=== PATIENT | female | born 1975 ===

== ENCOUNTER 2024-08-02 00:23 | Outpatient (CLI) | payer BC, SELFPAY ==
--- NOTE | 2024-08-02 | DI.MRI_ITS ---
Exam(s) MR BRAIN WO/W EXAM: MR BRAIN WO/W CLINICAL HISTORY: R31.9 NEUROLOGICAL SYMPTOMS, R/O MS LESION TECHNIQUE: Multiplanar multisequence MRI of the brain was performed. Both noninfused and contrast i nfused sequences were performed. IV Contrast injected was 20 cc Dotarem. COMPARISON: No exams were available for comparison FINDINGS: CEREBRAL PARENCHYMA: No evidence of intracranial hemorrhage, mass effect nor shift of midline structu re. There is mild cerebellar tonsillar ectopia noted. No obvious Cy rings evident in the partially visualized upper cervical spinal cord (C2 and above).. No extraaxial fluid collections. Ventricles are not enlarged nor shifted. There is no significant focal signal abnormality in the cerebellar hemispheres nor within the yanet, m idbrain, and thalami. There are few tiny nonspecific FLAIR bright foci of signal abnormality in the periventricular white m atter, not associated with hemorrhage, surrounding edema, enhancement, nor restricted diffusion. The se do not have the appearance of demyelinating plaques. There also no Hui fingers at the level th e corpus callosum. DWI: No areas of restricted diffusion to suggest acute ischemic event. SWI: No microhemorrhages evident. There are no ring enhancing lesions in the brain. There is no abnormal meningeal enhancement. PITUITARY GLAND: No mass nor parasellar abnormality. No obvious abnormality in the cavernous sinuses. FLOW VOIDS: The expected flow void are noted. No evidence of obvious aneurysm nor obvious vascular ma lformation. There is no evidence of venous sinus thrombosis. PARANASAL SINUSES: There is developmental asymmetry in the maxillary sinuses, left smaller than right . No significant mucosal disease within the paranasal sinuses. Small amount of fluid noted in the l ower most right mastoid air cells. ORBITS: No obvious abnormal findings. No obvious signal abnormality nor abnormal enhancement within the optic nerves to suggest optic neuri tis. IMPRESSION: 1. No evidence of significant demyelinating disease in the brain, as per request. 2. There are few tiny nonspecific foci of white matter signal abnormality which are not associated wi th hemorrhage, surrounding edema, enhancement, nor restricted diffusion and these do not have the giuseppe earance of demyelinating plaques. 3. There are no ring enhancing lesions in the brain and there is no abnormal meningeal enhancement. 4. 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 If clini yovanny indicated further MRI study of the cervical spinal cord can be performed to rule out syringomye ayla. There does not appear to be evidence of syringomyelia in the uppermost cervical spine included in the field of view of this head study (down to lower C2 level only). DATA REPOSITORY:
--- OUTSIDE RECORDS SUMMARY | 2024-08-02 00:26 | XMS_ITS | Encounter Summary ---
Author Organization [facility] Address [address] [place] [address] Care Team Providers Care General Farm Manager Name Role Phone Marivel Ricks MD Primary Care Provider Reason for Visit * Reason Onset Date Comments Orders (Non Pre-visit) 04/12/2024 Encounter Details Date Type Department Care Team (Late st Contact Info) Description 04/12/2024 Telephone [facility] Rheumatology & Immunology - [address] [id number] Rashi May MD [address] [place] [address], [address] [place] [address] Orders (Non Pre-visit) Social History Tobacco Use Types Packs/Day Years Used Date Smoking Tobacco: Former Cigarettes 1 10 1 990 - 1999 Passive Smoke Exposure: Past Smokeless Tobacco: Never Passive Exposure Comments:ch ildhood Alcohol Use Standard Drinks/Week Comments Yes 0 (1 standard drink = 0.6 oz pure alcohol) 1-3 glasses of wine every night. Interpersonal Safety Answer Date Record ed Physically Hurt Never 03/22/2020 Verbally Threaten Not on file 03/22/2020 Comments Unknown Sex and Gender Information Value Date Recorded Sex Assigned at Not on file Legal Sex Female 17:57 EST Gender Identity Not on file Sexual Orientation Not on file documented as of this encounter Functional Status * Because of a physical, mental, or emotional condition, does this person have difficulty doing errands alone such as visiting a doctor's office or shopping? Answer Date of Assessment Author No 07/21/2023 12:14 EST documented as of this encounter Mental Status * Because of a physical, mental, or emotional condition, does this person have serious difficulty concentrating, remembering, or making decisions? Answer Entry Date Author No 07/21/2023 12:14 EST documented in this encounter Miscellaneous Notes * Telephone Encounter - Mary Shi RN - 04/12/2024 1700 EDT Spoke with pt R/T MD response. Booked her for FUR on Monday at 1420. Verbalized understanding and agreeable with plan. * Telephone Encounter - Chantal Sultana RN - 04/12/2024 1004 EDT Spoke with patient at length. Patient feels she is in the midst of a flare and has a lot of different symptoms going on. Patient states having significant joint pain in bilateral hips and left ankle.Denies swelling, redness, or warmth to touch. Patient states her right knee is very tender, noticed it has been hyperextending, and causing her gait to be abnormal. Walks with more caution to avoid her falling. Advised this is likely to do hypermobility EDS. Patient seems convinced she has something more going on. Patient references a lot how her disgestive tract has been inflamed from her esophagus to her colon. Feels her whole body has a lot of inflammation. Has been doing research and feels she either has a form of RA, Lupus, or Crohn's. Would like to have labs ordered and sent to [facility]. * Telephone Encounter - Elda Pepper - 04/12/2024 0829 EDT Patient stated she is having active symptoms now. She is asking for an order for blood work to be sent to [facility]. Patient is asking for a call back once the orders have been sent. Thank You documented in this encounter Plan of Treatment Not on file documented as of this encounter Visit Diagnoses Not on filedocumented in this encounter Care Teams General Farm Manager Relationship Specialty Start Date End Date Marivel Ricks MD [address] [address] PCP - General 09/30/09 documented as of this encounter
--- OUTSIDE RECORDS SUMMARY | 2024-08-02 00:26 | XMS_ITS | Encounter Summary ---
Author Organization [facility] Address [address] [place] [address] Care Team Providers Care Cattle Sprayer Name Role Phone Marivel Ricks MD Primary Care Provider [phone] Encounter Details Date Type Department Care Team (Late st Contact Info) Description 01/15/2020 Lab Requisition [facility] Pathology & Laboratory Medicine - [address] [address] Outr Resulting Lab, Provider Social History Tobacco Use Types Packs/Day Years Used Date Smoking Tobacco: Never Assessed Comments Unknown Sex and Gender Information Value Date Recorded Sex Assigned at Not on file Legal Sex Female 17:57 EST Gender Identity Not on file Sexual Orientation Not on file documented as of this encounter Plan of Treatment Not on file documented as of this encounter Procedures Procedure Name Priority Date/Time Associated Diagnosis Comments ZZCOVID-19 TEST [facility] PCR Today 01/15/2020 13:49 EDT COVID-19 TESTING Routine 01/15/2020 13:4 9 EDT documented in this encounter Results * COVID-19 TEST [facility] PCR (01/15/2020 13:49 EDT) Swab ENTIRE NASOPHARYNX / Unknown 01/15/2020 13:49 EDT 01/15/2020 21:46 EDT us Provider Outr Resulting Lab MICROBIOLOGY - GENER AL ORDERABLES Final Result [facility] [address] [place] [address] * COVID-19 TESTING (01/15/2020 13:49 EDT) COVID-19 rt-PCR Result Negative Negative 01/16/2020 1:47 EDT [facility] Comment: This test has not been FDA cleared or approved. This test has been authorized by FDA under an EUA for use by authorized laboratories. This test has been authorized only for detection of nucleic acid from 2019-nCoV, not for any other viruses or pathogens. This test is only authorized for the duration of the declaration that circumstances exist justifying the authorization of emergency use of in vitro diagnostic tests for detection and/or diagnosis of 2019-nCoV under section 564(b)(1) of Act, 21 U.S.C ?? 360bbb-3(b) (1), unless the authorization is terminated or revoked sooner. Negative results do not preclude 2019-nCoV infection and should not be used as the sole basis for treatment or other patient management decisions. Negative results must be combined with clinical observations, patient history, and epidemiological information. Performed on the Lightningcast[employer] Fusion instrument Performing Lab [place] [facility] 01/16/2020 1:47 EDT [facility] Swab ENTIRE NASOPHARYNX / Unknown 01/15/2020 13:49 EDT 01/15/2020 21:46 EDT us Provider Outr Resulting Lab MICROBIOLOGY - GENER AL ORDERABLES Final Result [facility] [address] [place] [address] documented in this encounter Visit Diagnoses Not on filedocumented in this encounter Care Teams Cattle Sprayer Relationship Specialty Start Date End Date Marivel Ricks MD [address] [address] PCP - General 09/30/09 documented as of this encounter
--- OUTSIDE RECORDS SUMMARY | 2024-08-02 00:26 | XMS_ITS | Encounter Summary ---
Author Organization [facility] Address [address] [place] [address] Care Team Providers Care Construction Framer Name Role Phone Marivel Ricks MD Primary Care Provider Reason for Visit * Reason Onset Date Comments No Show 01/29/2024 Encounter Details Date Type Department Care Team (Late st Contact Info) Description 01/29/2024 Telephone [facility] Rheumatology & Immunology - [address] [address] Rashi May MD [address] [place] [address], [address] [place] [address] No Show Social History Tobacco Use Types Packs/Day Years Used Date Smoking Tobacco: Former Cigarettes 1 10 1 990 - 2000 Passive Smoke Exposure: Past Smokeless Tobacco: Never Passive Exposure Comments: ildhood Alcohol Use Standard Drinks/Week Comments Yes [...] encounter Miscellaneous Notes * Telephone Encounter - Arabella Mccray - 02/01/2024 1102 EDT 2nd attempt - left message on machine to call back and reschedule no showed appointment with Dr May on 01.26.2024. Please reschedule from the past tab. * Telephone Encounter - Arabella Mccray - 01/29/2024 1027 EDT 1st attempt - left message on machine to call back and reschedule no showed appointment with Dr May on 01.26.2024. Please reschedule from the past tab. documented in this encounter Plan of Treatment Not on file documented as of this encounter Visit Diagnoses Not on filedocumented in this encounter Care Teams Construction Framer Relationship Specialty Start Date End Date Marivel Ricks MD [address] [address] PCP - General 09/30/09 documented as of this encounter
--- OUTSIDE RECORDS SUMMARY | 2024-08-02 00:26 | XMS_ITS | Encounter Summary ---
Author Organization [facility] Address [address] [place] [address] Care Team Providers Care Meatcutter Name Role Phone Marivel Ricks MD Primary Care Provider [phone] Encounter Details Date Type Department Care Team (Late st Contact Info) Description 02/23/2023 Lab Requisition [facility] Pathology & Laboratory Medicine - [address] [address] Outr Resulting Lab, Provider Social History Tobacco Use Types Packs/Day Years Used Date Smoking Tobacco: Never Assessed Interpersonal Safety Answer Date Record ed Physically [...] Procedure Name Priority Date/Time Associated Diagnosis Comments CA 125 Routine 02/23/2023 15:51 EDT documented in this encounter Results * CA 125 (02/23/2023 15:51 EDT) CA 125 19 <30 U/mL 02/24/2023 10:34 EDT [facility] Comment: NOTE: Serum CA 125 concentration should not be interpreted as absolute evidence for the presence or absence of malignant disease. Assayed on Siemens [employer] XPT using chemiluminescent technology. ??Values obtained by using different assay methods cannot be used interchangeably. Blood VENOUS BLOOD / Unknown 02/23/2023 15:51 EDT 02/23/2023 21:27 EDT us Provider Outr Resulting Lab CHEMISTRY & BLOOD GA S ORDERABLES Final Result [facility] [address] [place] [address] documented in this encounter Visit Diagnoses Not on filedocumented in this encounter Care Teams Meatcutter Relationship Specialty Start Date End Date Marivel Ricks MD [address] [address] PCP - General 09/30/09 documented as of this encounter
--- OUTSIDE RECORDS SUMMARY | 2024-08-02 00:26 | XMS_ITS | Encounter Summary ---
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 Patient would benefit from exercises to help improve muscle tone, to support joints better. Reason for Visit * Reason Comments New Patient Visit Has had flare ups, p ain is a 10 during flare ups. During flare ups: eyes become sore and vision decreases, sores pop up on the inside of the tip of the nose. There is a sore on the left labia that was diagnosed as contact dermatitis but has never gone away. Becomes itchy when patient has a flare up. 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 [address] [address] Phone: tel: fax: Jeannine Le MD Phone: tel: fax: Referral ID Status Reason Start Date Expiration Date Visits Re quested Visits Authorized [id number] Denied 1 0 Encounter Details Date Type Department Care Team (Late st Contact Info) Description 07/21/2023 11:40 EST Office Visit [facility] Rheumatology & Immunology - [address] [id number] Rashi May MD [address] [place] [address], [address] [place] [address] Positive MARY (antinuclear antibody) (Primary Dx); Polyarthralgia; Myalgia; Chronic fatigue; Hypermobile Vangie-Danlos syndrome; Screening for viral disease Social History Tobacco Use Types Packs/Day Years Used Date Smoking Tobacco: Former Cigarettes 1 10 1 990 - 1999 Passive Smoke Exposure: Past Smokeless Tobacco: Never Tobacco Cessation:Counseling Given: Not Answered Passive Exposure Comments:childhood Alcohol Use Standard Drinks/Week Comments Yes 0 [...] on file documented as of this encounter Last Filed Vital Signs Vital Sign Reading Time Taken Comments Blood Pressure 139/69 07/21/2023 1211 EST Pulse 66 07/21/2023 1211 EST Temperature 36.4 ??C (97.6 ??F) 07/21/2023 1211 EST Respiratory Rate - - Oxygen Saturation - - Inhaled Oxygen Concentration - - Weight 104.3 kg (230 lb) 07/21/2023 1211 EST Height 177.5 cm (5' 9.88) 07/21/2023 1211 EST Body Mass Index 33.11 07/21/2023 1211 EST documented in this encounter Functional Status * Because of [...] 07/21/2023 12:14 EST documented in this encounter Patient Instructions * Patient Instructions* Rashi May MD - 07/21/2023 11:40 EST - get lab work today (2nd floor) - work on diet and regular exercise - consider cutting down on alcohol - consider seeing integrative medicine (Dr. Phoenix Tapia) here in [facility] to help with some of yoursymptoms. I do think some of your chronic symptoms are due to Hypermobility EDS (but not the episodic flares). - regular low impact aerobic exercises and low impact muscle strengthening exercises help in improving muscle tone and are very essential for management of symptoms. - referral to Physical therapy for Hypermobility EDS - suggest reading this book by Ramana Ramirez: Joint Hypermobility Handbook- A Guide for the Issues & Management of Vangie-Danlos Syndrome Hypermobility Type and the Hypermobility Syndrome - suggest to check EDS website [email or web address] [email or web address]/ Return to visit in 6 months (in person) documented in this encounter Progress Notes * Rashi May MD - 07/21/2023 1140 EST Division of Rheumatology and Clinical Immunology Date of Service: 07/21/23 Reason for Referral: multiple joint pains, myalgia, positive MARY Referring Provider: PAWAN Peguero History of Present Illness: Elyse Perry is a 47 y.o. female with PMHx as below. Reports having flare ups since 2008, occurs every ~4 months, lasts about 2 weeks each time. Does not recall having had any infections or having recieved any vaccines within 1-2 months prior to the onset of joint pains in 2008. When she had her first flare in [id number], she was seen by rheumatology here, later seen by communications operator who diagnosed her with Lyme, treated with chronic antibiotics (amoxicillin and metronidazole) for 10 months, which seemed to help initially but symptoms returned after stopping antibiotics. She saw another naturopathy, when she was advised some diet changes, took some tinctures for 3 years whichshe felt better. Worse flare was in 05/2022, lasted about 6 weeks. Does not recall having any infections or vaccinesprior to the worse flare in 05/2022. During every flare she notices joint pains and myalgia in hands (MCPs), L elbow, R>L shoulder, L>R hip (groin), L knee, BL ankles, R foot (#1 MTP and entire toe). Has generalized myalgia in UE,LE. Since 2008 she has had chronic fatigue, intermittently gets worse. Worse areas of pain: L hip, R shoulder, BL ankles, R #1 toe, BL wrists. Other symptoms she notices during flares are: SOB, Abdominal bloating, Constipation. Feels some weakening of ligaments in ankles (ankles rolls easily), sores in inside of very tip of her nose, BL eyepain, blurry vision, increase in floaters. In 2015 she developed an itchy raised patch of skin in her labia, seen by dermatology, diagnosed ascontact dermatitis, prescribed topical steroid which helps temporarily but she continues to have this patch of skin in her labia. In between flares she notices mild symptoms: mild joint pains, runny nose, raspy voice (feels like always has to clear her throat). Pain is not related to time of the day. Pain is worse: Rest Pain is better: with activity Swelling in joints: intermittent L knee (has had ACL and meniscus repair), BL ankles (towards the end of the day). Morning Stiffness: 15 mins Medications tried: Ibuprofen helps a little Reports chronic fatigue and some brain fog since 2008. Fatigue got worse in 05/2022. Reports usually getting good refreshing sleep, but occasionally has poor refreshing sleep - during episodes of stress. <> Denies nasal crusting, frequent sinusitis, oral ulcers (rarely), genital ulcers, headaches, cough, SOB, hemoptysis. <> Denies h/o skin rash, photosensitivity, oral ulcers, serositis (pleuritis, pericarditis), hemolytic anemia, leukopenia/lymphopenia, thrombocytopenia, kidney disease . Denies h/o arterial/venous thrombosis. Has dry eyes for the past 10 years, uses eye drops intermittently when it gets worse. <> Denies dry mouth. <> Denies abdominal pain (except due to IBS), fever, weight loss. <> Denies h/o Psoriasis, dactylitis, uveitis/eye inflammation. Denies family h/o Psoriasis, Ankylosing Spondylitis, Crohn's disease, Ulcerative colitis. Reports having had hyperflexible joints, especially in her Ankles, frequent clicking and popping of joints, joint subluxations (shoulders, knees), recurrent ankle sprains, easy bruising, atrophic scars, frequent orthostatic lightheadedness (more when younger, not so much now), IBS, constipation. <> Denies h/o joint dislocations, soft skin, pelvic floor/rectal/uterine prolapse, stretch leslie, hyperelastic skin, cigarette paper scars, severe hypotonia at , fragile skin (splits easily after minor trauma), pneumothorax, bowel rupture, rupture of internal organs, vascular aneurysms/di ssection. Denies family h/o pneumothorax, bowel rupture, rupture of internal organs, vascular aneurysms/dissection. 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 There are no problems to display for this patient. No current outpatient medications on file. ALLERGIES: Patient has no known allergies. Past Medical History: Diagnosis Date IBS (irritable bowel syndrome) Lyme disease 2009 Past Surgical History: Procedure Laterality Date ANTERIOR CRUCIATE LIGAMENT REPAIR Left 1992 KNEE CARTILAGE SURGERY Left 1992 LASIK Bilateral Family History Problem Relation Age of Onset Diverticulitis Mother Social History Socioeconomic History Marital status: Spouse name: Not on file Number of children: Not on file Years of education: Not on file Highest education level: Not on file Occupational History Not on file Tobacco Use Smoking status: Former Current packs/day: 0.00 Average packs/day: 1 pack/day for 10.0 years (10.0 ttl pk-yrs) Types: Cigarettes Start date: 1989 Quit date: 1999 Years since quittin.9 Passive exposure: Past (childhood) Smokeless tobacco: Never Vaping Use Vaping Use: Never used Substance and Sexual Activity Alcohol use: Yes Comment: 1-3 glasses of wine every night. Drug use: Never Sexual activity: Not on file Other Topics Concern Not on file Social History Narrative Not on file Social Determinants of Health Financial Resource Strain: Not on file Food Insecurity: Not on file Transportation Needs: Not on file Physical Activity: Not on file Stress: Not on file Social Connections: Not on file Housing Stability: Not on file PHYSICAL EXAMINATION: BP 139/69 (BP Cuff Location: Right arm, BP Patient Position: Sitting, BP Cuff Sizes: Adult, regular) Pulse 66 Temp 36.4 ??C (97.6 ??F) Ht 177.5 cm (69.88) Wt (!) 104.3 kg (230 lb) BMI 33.11 kg/m?? Constitutional: Not in distress Head: Normocephalic Eyes: No erythema. Conjunctiva moist Mouth: No oral ulcers. Mucosa moist. Lymph nodes: No cervical lymphadenopathy Cardiac: Normal rate, rhythm. Normal S1S2, no murmurs Pulmonary: Normal breath sounds on auscultation. Neurological: AOx3. Extremity: No edema Skin: no rashes. MSK Exam: Muscle strength: power 5/5 in b/l UE and LE in proximal and distal muscle groups Beighton Score: 6/9 (BL elbow, L #5 MCP. Until 3-5 years ago could touch palms to floor without bending knees, could flex thumbs to forearm) Piezogenic papules: Present Neck: Intact ROM Back: Intact ROM, B/L SI Joint Non-tender Shoulder: Intact ROM. No tenderness, swelling in b/l shoulders. Elbows, Wrists: No joint swelling, tenderness, erythema. Intact ROM Hands: No joint swelling, tenderness, erythema. Able to make tight fists BL Hips: Intact ROM, no tenderness with ROM Knees, Ankles, Feet: No joint swelling, tenderness, erythema. Intact ROM No nail pitting or onycholysis No Dactylitis, Enthesitis. Review of Outside Records/Tests: LABS Results for orders placed or performed in visit on 07/21/23 ANTI DNA (DOUBLE STRANDED) Result Value Ref Range Anti-DNA (Double Stranded) <12.3 <30.0 IU/mL SM (CASTRO) ANTIBODY Result Value Ref Range SM (Castro) Antibody 3.1 <20.0 Units PATTERN MARKING SUPERVISOR ANTIBODIES BY ANDREA Result Value Ref Range PATTERN MARKING SUPERVISOR Antibody 2.4 <20.0 Units SSA ANTIBODIES BY ANDREA Result Value Ref Range SSA Antibody 1.6 <20.0 Units SSB ANTIBODIES BY ANDREA Result Value Ref Range SSB Antibody 2.4 <20.0 Units CCP ANTIBODIES Result Value Ref Range CCP Antibodies <2.5 <5.0 U/mL HEPATITIS B CORE ANTIBODY (TOTAL) Result Value Ref Range Hepatitis B Core Ab, Total Negative Negative HEPATITIS B SURFACE ANTIGEN Result Value Ref Range Hep B Surface Ag Negative Negative HEPATITIS C AB W REFLEX TO HCV RNA BY PCR Result Value Ref Range Hep C Antibody Negative Negative C REACTIVE PROTEIN Result Value Ref Range C-Reactive Protein 7.2 <10.0 mg/L SED RATE Result Value Ref Range Sed Rate 6 0 - 20 mm/hr COMPLETE BLOOD COUNT AND DIFFERENTIAL Result Value Ref Range WBC 6.21 4.00 - 12.40 K/cmm RBC 4.36 3.86 - 5.04 M/cmm Hemoglobin 13.6 11.6 - 15.2 g/dL HCT 39.6 34.9 - 44.4 % MCV 91 81 - 98 fL MCH 31.2 26.7 - 33.3 pg MCHC 34.3 32.1 - 35.9 g/dL RDW-CV 12.6 <14.7 % RDW-SD 41.2 <50.4 fl PLT 197 141 - 377 K/cmm MPV 10.2 9.5 - 12.7 fL % Neutrophils 53.7 % % Lymphocytes 33.3 % % Monocytes 10.3 % % Eosinophils 1.8 % % Basophils 0.6 % % Immature Grans 0.3 % Absolute Neutrophils 3.33 2.20 - 8.85 K/cmm Absolute Lymphocytes 2.07 1.09 - 3.30 K/cmm Absolute Monocytes 0.64 0.10 - 0.80 K/cmm Absolute Eosinophils 0.11 0.03 - 0.61 K/cmm ABS Basophils 0.04 0.01 - 0.11 K/cmm Absolute Immature Grans 0.02 0.00 - 0.06 K/cmm Type of Differential: Auto COMPREHENSIVE METABOLIC PANEL (CMP) Result Value Ref Range Sodium 141 136 - 145 mmol/L Potassium 4.1 3.5 - 5.0 mmol/L Chloride 103 96 - 110 mmol/L CO2 Total 27 22 - 32 mmol/L Glucose 92 70 - 99 mg/dl BUN 19 10 - 26 mg/dL Creatinine 0.87 0.52 - 1.04 mg/dL eGFR 82 >60 mL/min/1.73m2 Total Protein 7.5 6.3 - 8.2 g/dL Albumin 4.3 3.4 - 4.9 g/dL Alkaline Phosphatase 37 (L) 38 - 126 U/L AST 34 15 - 46 U/L ALT 25 <35 U/L Bilirubin, Total <0.5 <1.4 mg/dL Calcium 9.3 8.5 - 10.5 mg/dL Albumin/Globulin Ratio 1.3 1.0 - 2.5 g/dL Anion Gap 11 5 - 14 mmol/L TISSUE TRANSGLUTAMINASE AB, IGA Result Value Ref Range Tissue Transglutaminase Antibody IGA <1.2 <4.0 U/mL No visits with results within 3 Month(s) from this visit. Latest known visit with results is: Lab Requisition on 02/23/2023 Component Date Value CA 125 02/23/2023 19 IMAGING: Plan Diagnosis / Assessment: ICD-10-CM ICD-9-CM 1. Positive MARY (antinuclear antibody) R76.8 795.79 2. Polyarthralgia M25.50 719.49 3. Myalgia M79.10 729.1 4. Chronic fatigue R53.82 780.79 5. Hypermobile Vangie-Danlos syndrome Q79.62 756.83 6. Screening for viral disease Z11.59 V73.99 1) Recurrent Episodic severe Polyarthralgia, Myalgia: - Work up Labs: - ESR: Normal (6), CRP: Normal (1.8mg/L) 05/2022; Repeat ESR: Normal (6), CRP: 7.2mg/L) 07/2023 - RF: (-) 05/2022 , CCP: (-) 07/2023 - MARY: (1:80, Cytoplasmic, Fine Speckled) 05/2022 - dsDNA, SM, PATTERN MARKING SUPERVISOR, SSA, SSB: (-) 07/2023 - TTG: (-) 07/2023 - Lyme: (-) 05/2022 - TSH: Normal 05/2022 - CBC diff, CMP: Normal 05/2022 - Hep B & C screen: Negative 07/2023 - recurrent episodic flares of multiple joint pain and generalized myalgia since 2008, chronic fatigue since 2008. Flares occur every ~4 months, lasts about 2 weeks each time. Flare in 05/2022 was worse, lasted 6 weeks. Associated symptoms during flares: SOB, Abdominal bloating, Constipation, feeling of weakening of ligaments in ankles (ankles rolls easily), sores in inside of very tip of her nose, BL eye pain, blurry vision, increase in floaters. - unclear if the bad flare in 05/2022 was due to post-Viral or post -COVID syndrome (though she didn't haven't any clear symptoms suggestive of COVID injection, but viral infections can sometimes be asymptomatic). - unclear if the episodic flares are due to any inflammatory cause - history is partly non-inflammatory and partly inflammatory ; No Synovitis noted on physical exam (07/2023) - the cause of these symptoms is unclear. It would be better to evaluate patient during a flare. - Monitoring Labs: - 07/2023: - ESR: Normal (6), CRP: 7.2mg/L) - CBC diff, CMP: Normal 2) Chronic polyarthralgia: Likely due to Hypermobility EDS: - in addition to the episodic severe joint pains, patient also has a milder chronic joint pains in the back ground which seem to be separate from the episodic flares. - h/o hyperflexible joints, especially in her Ankles, frequent clicking and popping of joints, joint subluxations (shoulders, knees), recurrent ankle sprains, easy bruising, atrophic scars, frequent orthostatic lightheadedness (more when younger, not so much now), IBS, constipation. On exam has piezogenic papules, Beighton Score of 6/9. Given these history and exam features, patient likely has Hypermobility EDS - does not have history suggestive of Classical or Vascular EDS. - this is a disorder due to laxity of connective tissues. - patients can get frequent aches and pains due to Joint Hypermobility; they are also predisposed to get frequent joint injuries, they can develop osteoarthritis earlier in life 3) Positive MARY (1:80, Cytoplasmic, Fine Speckled): - 05/2022 - patient does not have features suggestive of Lupus or Connective Tissue Diseases - MARY is a non-specific test; Though it is positive in SLE and other connective tissue disease, it can also be seen positive in people without any evidence of autoimmune disease. - will check MARY subset antibodies (dsDNA, SM, PATTERN MARKING SUPERVISOR, SSA, SSB) -> all reported negative 07/2023 Recommendations/Evaluation: Patient Instructions - get lab work today (2nd floor) - work on diet and regular exercise - consider cutting down on alcohol - consider seeing integrative medicine (Dr. Phoenix Tapia) here in [facility] to help with some of yoursymptoms. I do think some of your chronic symptoms are due to Hypermobility EDS (but not the episodic flares). - regular low impact aerobic exercises and low impact muscle strengthening exercises help in improving muscle tone and are very essential for management of symptoms. - referral to Physical therapy for Hypermobility EDS - suggest reading this book by Ramana Ramirez: Joint Hypermobility Handbook- A Guide for the Issues & Management of Vangie-Danlos Syndrome Hypermobility Type and the Hypermobility Syndrome - suggest to check EDS website [email or web address]/ Return to visit in 6 months (in person) I spent a total of 70 minutes on the date of this encounter meeting with the patient and reviewing documentation/coordinating care as described in the above note. No procedures were performed at the time of the visit. Rashi May MD documented in this encounter Plan of Treatment Scheduled Referrals Name Type Priority Associated Diagnoses Order Schedule AMB CONS/FOLLOW UP PHYSICAL THERAPY - OUTSIDE OF NETWORK Outpatient Referral Routine/Next Available Hypermobile Vangie-Danlos Syndrome Expected: 08/21/2023 (Approximate), Expires: 07/21/2024 documented as of this encounter Results * TISSUE TRANSGLUTAMINASE AB, IGA (07/21/2023 16:18 EST) Tissue Transglutaminase Antibody IGA <1.2 <4.0 U/mL 07/24/2023 8:04 [facility] Comment: A negative result may be due to IgA deficiency and does not rule out celiac disease. ? Negative: ??<4.0 U/mL ? Weak Positive: ??4.0 - 10.0 U/mL ? Positive: ??>10.0 U/mL Results were obtained with the GeoVarioA Lite R h-tTG IgA ANDREA assay on the [employer] DSX. Blood VENOUS BLOOD / Unknown Venipuncture / Unknown 07/21/2023 16:18 EST 07/21/2023 16:41 EST us Rashi May MD IMMUNOLOGY AND SEROLOGY ORDERAB LES Final Result [facility] [address] [place] [address] * (ABNORMAL) COMPREHENSIVE METABOLIC PANEL (CMP) (07/21/2023 16:18 EST) Sodium 141 136 - 145 mmol/L 07/21/2023 17:09 [facility] Potassium 4.1 3.5 - 5.0 mmol/L 07/21/2023 17:09 [facility] Chloride 103 96 - 110 mmol/L 07/21/2023 17:09 [facility] CO2 Total 27 22 - 32 mmol/L 07/21/2023 17:09 [facility] Glucose 92 70 - 99 mg/dl 07/21/2023 17:09 [facility] BUN 19 10 - 26 mg/dL 07/21/2023 17:09 [facility] Creatinine 0.87 0.52 - 1.04 mg/dL 07/21/2023 17:09 [facility] eGFR 82 >60 mL/min/1.7 3m2 07/21/2023 17:09 [facility] Total Protein 7.5 6.3 - 8.2 g/dL 07/21/2023 17:09 [facility] Albumin 4.3 3.4 - 4.9 g/dL 07/21/2023 17:09 [facility] Alkaline Phosphatase 37(L) 38 - 126 U/L 07/21/2023 17:09 [facility] AST 34 15 - 46 U/L 07/21/2023 17:09 [facility] ALT 25 <35 U/L 07/21/2023 17:09 [facility] Bilirubin, Total <0.5 <1.4 mg/dL 07/21/20 17:09 [facility] Calcium 9.3 8.5 - 10.5 mg/dL 07/21/2023 17:09 [facility] Albumin/Globulin Ratio 1.3 1.0 - 2.5 g/dL 07/21/2023 17:09 [facility] Anion Gap 11 5 - 14 mmol/L 07/21/2023 17:09 [facility] Blood VENOUS BLOOD / Unknown Venipuncture / Unknown 07/21/2023 16:18 EST 07/21/2023 16:41 EST Rashi May MD CHEMISTRY & BLOOD GAS ORDERABLE S Final Result Performing Organization Address City/State/[facility] Co de Phone Number [facility] [address] [place] [address] * COMPLETE BLOOD COUNT AND DIFFERENTIAL (07/21/2023 16:18 EST) WBC 6.21 4.00 - 12.40 K/cmm 07/21/2023 16:48 [facility] RBC 4.36 3.86 - 5.04 M/cmm 07/21/2023 16:48 [facility] Hemoglobin 13.6 11.6 - 15.2 g/dL 07/21/2023 16:48 [facility] HCT 39.6 34.9 - 44.4 % 07/21/2023 16:48 [facility] MCV 91 81 - 98 fL 07/21/2023 16:48 [facility] MCH 31.2 26.7 - 33.3 pg 07/21/2023 16:48 [facility] MCHC 34.3 32.1 - 35.9 g/dL 07/21/2023 16:48 [facility] RDW-CV 12.6 <14.7 % 07/21/2023 16:48 [facility] RDW-SD 41.2 <50.4 fl 07/21/2023 16:48 [facility] PLT 197 141 - 377 K/cmm 07/21/2023 16:48 [facility] MPV 10.2 9.5 - 12.7 fL 07/21/2023 16:48 [facility] % Neutrophils 53.7 % 07/21/2023 16:48 [facility] % Lymphocytes 33.3 % 07/21/2023 16:48 [facility] % Monocytes 10.3 % 07/21/2023 16:48 [facility] % Eosinophils 1.8 % 07/21/2023 16:48 [facility] % Basophils 0.6 % 07/21/2023 16:48 [facility] % Immature Grans 0.3 % 07/21/20 16:48 [facility] Absolute Neutrophils 3.33 2.20 - 8.85 K/cmm 07/21/2023 16:48 [facility] Absolute Lymphocytes 2.07 1.09 - 3.30 K/cmm 07/21/2023 16:48 [facility] Absolute Monocytes 0.64 0.10 - 0.80 K/cmm 07/21/2023 16:48 [facility] Absolute Eosinophils 0.11 0.03 - 0.61 K/cmm 07/21/2023 16:48 [facility] ABS Basophils 0.04 0.01 - 0.11 K/cmm 07/21/2023 16:48 [facility] Absolute Immature Grans 0.02 0.00 - 0.06 K/cmm 07/21/2023 16:48 [facility] Type of Differential: Auto 07/21/2023 16:48 EST [facility] Blood VENOUS BLOOD / Unknown Venipuncture / Unknown 07/21/2023 16:18 EST 07/21/2023 16:41 EST us Rashi May MD PACKAGES & DNA PROBE ORDERABLES Final Result Performing Organization Address [facility]/ZIP Co de Phone Number [facility] [address] [place] [address] * SED RATE (07/21/2023 16:18 EST) Pathologist [facility] Sed Rate 6 0 - 20 mm/hr 07/21/2023 17:00 EST [facility] Blood VENOUS BLOOD / Unknown Venipuncture / Unknown 07/21/2023 16:18 EST 07/21/2023 16:41 EST us Rashi May MD HEMATOLOGY & PF4 ORDERABLES Fin al Result Performing Organization Address City/[facility] Co de Phone Number [facility] [address] [place] [address] * C REACTIVE PROTEIN (07/21/2023 16:18 EST) [facility] C-Reactive Protein 7.2 <10.0 mg/L 07/21/2023 17:12 EST [facility] Blood VENOUS BLOOD / Unknown Venipuncture / Unknown 07/21/2023 16:18 EST 07/21/2023 16:41 EST us Rashi May MD CHEMISTRY & BLOOD GAS ORDERABLE S Final Result Performing Organization Address [facility] Co de Phone Number [facility] [address] [place] [address] * HEPATITIS C AB W REFLEX TO HCV RNA BY PCR (07/21/2023 16:18 EST) Pathologist [facility] Hep C Antibody Negative Negative 07/24/2023 17:37 EST [facility] Blood VENOUS BLOOD / Unknown Venipuncture / Unknown 07/21/2023 16:18 EST 07/21/2023 16:40 EST Result Shraddha May MD CHEMISTRY & BLOOD GAS ORDERABLE S Final Result Performing Organization Address City/[facility] Co de Phone Number [facility] [address] [place] [address] * HEPATITIS B SURFACE ANTIGEN (07/21/2023 16:18 EST) Hep B Surface Ag Negative Negative 07/24/2023 13:03 EST [facility] Blood VENOUS BLOOD / Unknown Venipuncture / Unknown 07/21/2023 16:18 EST 07/21/2023 16:40 EST Result Shraddha May MD CHEMISTRY & BLOOD GAS ORDERABLE S Final Result Performing Organization Address [facility] de Phone Number [facility] [address] [place] [address] * HEPATITIS B CORE ANTIBODY (TOTAL) (07/21/2023 16:18 EST) Hepatitis B Core Ab, Total Negative Negative 07/24/2023 13:44 EST [facility] Blood VENOUS BLOOD / Unknown Venipuncture / Unknown 07/21/2023 16:18 EST 07/21/2023 16:40 EST Result Shraddha May MD CHEMISTRY & BLOOD GAS ORDERABLE S Final Result Performing Organization Address City/[facility] de Phone Number [facility] [address] [place] [address] * CCP ANTIBODIES (07/21/2023 16:18 EST) CCP Antibodies <2.5 <5.0 U/mL 07/24/2023 8:47 EST [facility] Blood VENOUS BLOOD / Unknown Venipuncture / Unknown 07/21/2023 16:18 EST 07/21/2023 16:40 EST Result Shraddha May MD IMMUNOLOGY AND SEROLOGY ORDERAB LES Final Result Performing Organization Address [facility] Co de Phone Number [facility] [address] [place] [address] * SSB ANTIBODIES BY ANDREA (07/21/2023 16:18 EST) SSB Antibody 2.4 <20.0 Units 07/25/2023 10:01 EST [facility] Comment: ? Negative: <20.0 Units ? Weak Positive: 20.0 - 39.9 Units ? Moderate Positive: 40.0 - 80.0 Units ? Strong Positive: >80.0 Units Results were obtained with the [employer] QUANTA Lite SS-B ANDREA. ??SS-B values obtained with different manufacturers' assay methods may not be used interchangeably. ??The magnitude of the reported IgG levels cannot be correlated to an endpoint titer. Blood VENOUS BLOOD / Unknown Venipuncture / Unknown 07/21/2023 16:18 EST 07/21/2023 16:40 EST us Rashi May MD IMMUNOLOGY AND SEROLOGY ORDERAB LES Final Result Performing Organization Address [facility] Co de Phone Number [facility] [address] [place] [address] * SSA ANTIBODIES BY ANDREA (07/21/2023 16:18 EST) SSA Antibody 1.6 <20.0 Units 07/25/2023 10:01 EST [facility] Comment: ? Negative: <20.0 Units ? Weak Positive: 20.0 - 39.9 Units ? Moderate Positive: 40.0 - 80.0 Units ? Strong Positive: >80.0 Units Results were obtained with the [employer] QUANTA Lite SS-A ANDREA. ??SS-A values obtained with different manufacturers' assay methods may not be used interchangeably. ??The magnitude of the reported IgG levels cannot be correlated to an endpoint titer. Blood VENOUS BLOOD / Unknown Venipuncture / Unknown 07/21/2023 16:18 EST 07/21/2023 16:40 EST Rashi May MD IMMUNOLOGY AND SEROLOGY ORDERAB LES Final Result Performing Organization Address [facility] de Phone Number [facility] [address] [place] [address] * PATTERN MARKING SUPERVISOR ANTIBODIES BY ANDREA (07/21/2023 16:18 EST) PATTERN MARKING SUPERVISOR Antibody 2.4 <20.0 Units 07/25/2023 10:01 EST [facility] Comment: ? Negative: <20.0 Units ? Weak Positive: 20.0 - 39.9 Units ? Moderate Positive: 40.0 - 80.0 Units ? Strong Positive: >80.0 Units Results were obtained with the [employer] Quanta Lite PATTERN MARKING SUPERVISOR ANDREA. PATTERN MARKING SUPERVISOR values obtained with different family support specialist's assay methods may not be used interchangeaby. ??The magnitude of the reported IgG levels cannot be be correlated to an endpoint titer. A positive result in the Quanta Lite PATTERN MARKING SUPERVISOR ANDREA indicates the presence of antibodies reactive with the PATTERN MARKING SUPERVISOR/Sm complex but cannot distinguish between anti-Sm and anti-PATTERN MARKING SUPERVISOR activity. Blood VENOUS BLOOD / Unknown Venipuncture / Unknown 07/21/2023 16:18 EST 07/21/2023 16:41 EST Rashi May MD IMMUNOLOGY AND SEROLOGY ORDERAB LES Final Result Performing Organization Address [facility] de Phone Number [facility] [address] [place] [address] * SM (CASTRO) ANTIBODY (07/21/2023 16:18 EST) SM (Castro) Antibody 3.1 <20.0 Units 07/25/2023 10:01 EST [facility] Comment: ? Negative: <20.0 Units ? Weak Positive: 20.0 - 39.9 Units ? Moderate Positive: 40.0 - 80.0 Units ? Strong Positive: >80.0 Units Results were obtained with the [employer] QUANTA Lite Sm ANDREA. ??Sm values obtained with different manufacturers' assay methods may not be used interchangeably. ??The magnitude of the reported IgG levels cannot be correlated to an endpoint titer. Blood VENOUS BLOOD / Unknown Venipuncture / Unknown 07/21/2023 16:18 EST 07/21/2023 16:40 EST us Rashi May MD IMMUNOLOGY AND SEROLOGY ORDERAB LES Final Result Performing Organization Address [facility] de Phone Number [facility] [address] [place] [id number] * ANTI DNA (DOUBLE STRANDED) (07/21/2023 16:18 EST) Anti-DNA (Double Stranded) <12.3 <30.0 IU/mL 07/25/2023 9:39 [facility] Comment: ? Negative: ??<30.0 IU/mL ? Borderline Positive: ??30.0 - 75.0 IU/mL ? Positive: ??>75.0 IU/mL Results were obtained with the [employer] QUANTA Lite dsDNA SC ANDREA assay on the [employer]price[employer]comX. Blood VENOUS BLOOD / Unknown Venipuncture / Unknown 07/21/2023 16:18 EST 07/21/2023 16:40 EST us Rashi May MD IMMUNOLOGY AND SEROLOGY ORDERAB LES Final Result Performing Organization Address [facility] de Phone Number [facility] [address] [place] [address] documented in this encounter Visit Diagnoses Diagnosis Positive MARY (antinuclear antibody)- Primary Other and unspecified nonspecific immunological findings Polyarthralgia Pain in joint, multiple sites Myalgia Mylagia and myositis, unspecified Chronic fatigue Other malaise and fatigue Hypermobile Vangie-Danlos syndrome Screening for viral disease Special screening examination for unspecified viral disease documented in this encounter Care Teams Bunch Maker Hand Relationship Specialty Start Date End Date Marivel Ricks MD [address] [address] PCP - General 09/30/09 documented as of this encounter
--- OUTSIDE RECORDS SUMMARY | 2024-08-02 00:26 | XMS_ITS | Referral Summary ---
Author Organization [facility] Address [address] [place] [address] Care Team Providers Care Assistant Fitness Manager Name Role Phone Marivel Ricks MD Primary Care Provider [phone] Encounters Date Type Department Care Team Description 06/12/2024 Telephone [facility] Rheumatology & Immunology [address] [address] Rashi May MD Appointment Related 06/11/2024 Telephone [facility] Rheumatology & Immunology [address] [address] Rashi May MD Labs Only 06/05/2024 [facility] Rheumatology & Immunology [address] [address] Rashi May MD Follow-up 05/21/2024 Lab Requisition [facility] Pathology & Laboratory Medicine [address] [address] Kathrin Rodriguez DO Unspecified menopausal and perimenopausal disorder from Last 3 Months Allergies No known active allergies Medications progesterone (PROMETRIUM) 100 mg capsule Take 1 Capsule by mouth at bedtime. Active Vitamin D3-Menaquinone 7 25 mcg (1,000 unit)-90 mcg tablet,disintegra ting Take 1 Capsule by mouth daily. Active MAGNESIUM CITRATE ORAL Take 180 mg by mouth daily. 2 capsules daily Active betamethasone dipropionate 0.05 % lotion Apply topically as needed for Rash. Active rhubarb root extract (ESTROVERA ORAL) Take by mouth daily. Active CAPSICUM, CAYENNE, ORAL Take by mouth daily. Active TURMERIC ORAL daily. Active SALLY, ZINGIBER OFFICINALIS, ORAL daily. Ac tive creatine, bulk, 100 % powder daily. Active Active Problems Patient Care Coordination No te Formatting of this note migh t be different from the original. Patient has given permission for [facility] to verbally discuss the following information with Bari Perry (Spouse) who has the following relationship to the patient: Spouse/Partner: Scheduling/Appt/Billing/Payment Information (does not include clinical information unless specifically indicated with separate option) Medical Information including symptoms, diagnosis, medications, test results and treatment plan (does not include Mental Health unless specifically indicated with separate option) Mental Health (Behavioral,Psychiatric,Chemical Dependency) health information, including my symptoms, diagnosis, medications and treatment plan Permission remains in effect until the patient elects to revoke it. No additional problems on file Social History Tobacco Use Types Packs/Day Years Used Date Smoking Tobacco: Former Cigarettes 1 10 0 - 1999 Passive Smoke Exposure: Past Smokeless [...] on file Sexual Orientation Not on file Last Filed Vital Signs Vital Sign Reading Time Taken Comments Blood Pressure 118/68 04/15/2024 1417 EDT Pulse 78 04/15/2024 1417 EDT Temperature 36.3 ??C (97.3 ??F) 04/15/2024 1417 EDT Respiratory Rate - - Oxygen Saturation 96% 04/15/2024 1417 EDT Inhaled Oxygen Concentration - - Weight 100.7 kg (222 lb) 04/15/2024 1417 EDT Height 177.8 cm (5' 10) 04/15/2024 1417 EDT Body Mass Index 31.85 04/15/2024 1417 EDT Functional Status * Because of a physical, mental, or emotional condition, does this person have difficulty doing errands alone such as visiting a doctor's office or shopping? Answer Date of Assessment Author Yes 04/15/2024 14:17 EDT Mental Status * Because of a physical, mental, or emotional condition, does this person have serious difficulty concentrating, remembering, or making decisions? Answer Entry Date Author Yes 04/15/2024 14:16 EDT Plan of Treatment Not on file Procedures Procedure Name Priority Date/Time Associated Diagnosis Comments SURGICAL PATHOLOGY Today 05/21/2024 9: 30 EDT Unspecified menopausal and perimenopausal disorder HEPATITIS C AB W REFLEX TO HCV RNA BY PCR Routine 07/21/2023 16:18 EST Screening for viral disease from Last 3 Months or Most Recently Relevant to Health Maintenance Results * SURGICAL PATHOLOGY (05/21/2024 9:30 EDT) Note to Patient The following pathology results have been interpreted by your pathologist and may be available to you before your health provider has had the opportunity to review them. Please allow time for your provider to receive these results and explore management options, if applicable. 05/24/2024 14:49 [facility] Final Diagnosis A. ENDOMETRIUM, CURETTAGE: - Endometrial polyp. - Strips and fragments of inactive endometrium. - No cytologic atypia identified. B. ENDOMETRIUM, POLYPECTOMY: - Endometrial polyp. - No cytologic atypia identified. 05/24/2024 14:49 [facility] Attestation There was significant resident/fellow involvement in the diagnostic evaluation of this case. By the signature below, the attending physician certifies that they have personally conducted a gross and/or microscopic examination of the described specimens and rendered or confirmed the above diagnosis. 05/24/2024 14:49 [facility] at [id number] Clinical History Unspecified menopausal and perimenopausal disorder 05/24/2024 14:49 [facility] Gross Description A. Received in formalin labelled with proper patient identification (initials E, K) and endometrial curettings is a 2.5 x 2.5 x 0.3 cm aggregate of muller-brown soft tissue admixed with mucus. Entirely submitted in A1-A2. B. Received in formalin labelled with proper patient identification (initials E, K) and endometrial polyp is a 0.7 x 0.7 x 0.3 cm muller-red soft tissue fragment. Entirely submitted in B1. KATHLEEN BUTLER(ASCP) 05/22/2024 8:26 05/24/2024 14:49 EDT [facility] Resident/Swapnil w: Dusty Lora MD 05/24/2024 14:49 EDT [facility] Performing Lab [facility] 05/24/2024 14:49 EDT [facility] Scanned Images 05/24/2024 14:49 EDT [facility] Tissue ENDOMETRIAL STRUCTURE / Unknown 05/21/2024 9:30 EDT 05/21/2024 23:00 EDT Tissue specimen (specimen) ENDOMETRIAL STRUCTURE / Unknown 05/21/2024 9:30 EDT 05/21/2024 23:00 EDT Kathrin Rodriguez DO PATHOLOGY ORDERA BLES Final Result [facility] [address] [place] [address] * HEPATITIS C AB W REFLEX TO HCV RNA BY PCR (07/21/2023 16:18 EST) Hep C Antibody Negative Negative 07/24/2023 17:37 EST [facility] Blood VENOUS BLOOD / Unknown Venipuncture / Unknown 07/21/2023 16:18 EST 07/21/2023 16:40 EST us Rashi May MD CHEMISTRY & BLOOD GAS ORDERABLE S Final Result [facility] [address] [place] [address] from Last 3 Months or Most Recently Relevant to Health Maintenance Insurance * Guarantor: Orlando, Elyse L Account Type Relation to Patient Date of Phone Billing Address Personal/Family Self 1975 [address] [place] [address] [facility] Address: [address] [place] [address] * Guarantor: Elyse Perry Account Type Relation to Patient Date of Phone Billing Address Personal/Family Self 1975 [address] [place] [address] * Guarantor: Elyse Perry Account Type Relation to Patient Date of Phone Billing Address Personal/Family Self 1975 [address] [place] [address] * Guarantor: Elyse Perry Account Type Relation to Patient Date of Phone Billing Address Personal/Family Self 1975 [address] [place] [address] * Guarantor: Elyse Perry Account Type Relation to Patient Date of Phone Billing Address Personal/Family Self 1975 [address] [place] [address] * Guarantor: Elyse Perry Account Type Relation to Patient Date of Phone Billing Address Personal/Family Self [address] [place] [address] * Guarantor: Elyse Perry Account Type Relation to Patient Date of Phone Billing Address Personal/Family Self [address] [place] [address] * Guarantor: Elyse Perry Account Type Relation to Patient Date of Phone Billing Address Personal/Family Self 1975 [address] [place] [address] Care Teams Assistant Fitness Manager Relationship Specialty Start Date End Date Marivel Ricks MD [address] [address] PCP - General 09/30/09
--- OUTSIDE RECORDS SUMMARY | 2024-08-02 00:26 | XMS_ITS | Encounter Summary ---
Author Organization [facility] Address [address] [place] [id number] Care Team Providers Care Information Technology Instructor Name Role Phone Marivel Ricks MD Primary Care Provider [phone] Reason for Referral * Radiology Services (Routine/Next Available) - Authorization Not Required Specialty Diagnoses / Procedures Referred By Contac t Referred To Contact Diagnoses Polyarthralgia Procedures XR RHEUMATOLOGY BILATERAL KNEES 3 VIEWS EACH KNEE Rashi May MD [address] [place] [phone] Phone: tel: fax: [facility] Referral ID Status Reason Start Date Expiration Date Visits Requested Visits Authorized [id number] Authorization Not Required 04/15/2024 1 1 Reason for Visit * Reason Comments Follow-up Encounter Details Date Type Department Care Team (Late st Contact Info) Description 04/15/2024 14:20 EDT Office Visit [facility] Rheumatology & Immunology - [address] [address] Rashi May MD [address] [place] [phone] Polyarthralgia (Primary Dx); Myalgia; Chronic fatigue; Positive MARY (antinuclear antibody) Social History Tobacco Use Types Packs/Day Years [...] Body Mass Index 31.85 04/15/2024 1417 EDT documented in this encounter Functional Status * Because of a physical, mental, or emotional condition, does this person have difficulty doing errands alone such as visiting a doctor's office or shopping? Answer Date of Assessment Author Yes 04/15/2024 14:17 EDT documented as of this encounter Mental Status * Because of a physical, mental, or emotional condition, does this person have serious difficulty concentrating, remembering, or making decisions? Answer Entry Date Author Yes 04/15/2024 14:16 EDT documented in this encounter Patient Instructions * Patient Instructions* Rashi May MD - 04/15/2024 14:20 EDT - get X rays today (3rd floor) - get lab work today (2nd floor) - depending on knee X rays, you may need MRI of R knee Return to visit in 2 months (in person) documented in this encounter Progress Notes * Rashi May MD - 04/15/2024 1420 EDT Division of Rheumatology and Clinical Immunology FOLLOW UP NOTE: Date of Service: 04/15/24 Reason for follow up: Episodic flares of joint pains, myalgia History of Present Illness: Elyse Perry is a 48 y.o. female. Last visit here in 07/2023. Reports having had about 5 flares since 07/2023. Last 2 flares were worse with fevers, GI symptoms (for 2-3 days bloating, abdominal cramps, nausea,vomiting). Last flare started ~ 04/04/24. Has significant pain in all joints of UE and LE (shoulders, elbows, wrists, hands, hips [R lateral aspect and L groin], knees, ankles, toe). Generalized myalgia, extreme fatigue. Vision is a little blurry, twitching of muscles around eyelids, floaters, tenderness of eyeballs when touched. Had fever 101F, lasted 2 days (04/04 and 04/05). In between two episodes she feels much better. Currently she feels she is at the end of the flare. Has not had SOB during this flare. Has not had sore (not necessarily an open sore) inside of tip of nose this time. Rarely gets oral canker sores, but not frequently. Continues to have the patch of itchy raised skin rash in her labia. Denies genital ulcers. Has noticed some redness over cheeks in past 2 months. Currently her worse symptoms in R knee pain. Since 12/2023 has noticed worsening pain in R>L knee. Has difficulty walking due to pain in R knee. Joint Pain is not related to time of the day. Pain is worse: with activity Pain is better: Rest Swelling in joints: knees (more during flares, currently not swollen), ankles (sometimes) Morning Stiffness: 10 mins Medications tried: Ibuprofen, Naproxen helps little Has insomnia, hot flashes. Has had recent menopause. Continues to have dry eyes. Per patient her compliance and control analyst had mentioned that she has meibomian gland dysfunction. <> Denies photosensitive skin rash, oral ulcers, cough, SOB, recurrent infections. History obtained at initial Rheumatology visit (07/21/2023): Elyse Perry is a 47 y.o. female with PMHx as below. Reports having flare ups since 2008, occurs every ~4 months, lasts about 2 weeks each time. Does not recall having had any infections or having recieved any vaccines within 1-2 months prior to the onset of joint pains in 2008. When she had her first flare in [id number], she was seen by rheumatology here, later seen by supervisor train operations who diagnosed her with Lyme, treated with [...] no problems to display for this patient. Current Outpatient Medications Medication Sig betamethasone dipropionate 0.05 % lotion Apply topically as needed for Rash. CAPSICUM, CAYENNE, ORAL Take by mouth daily. creatine, bulk, 100 % powder daily. SALLY, ZINGIBER OFFICINALIS, ORAL daily. MAGNESIUM CITRATE ORAL Take 180 mg by mouth daily. 2 capsules daily progesterone (PROMETRIUM) 100 mg capsule Take 1 Capsule by mouth at bedtime. rhubarb root extract (ESTROVERA ORAL) Take by mouth daily. TURMERIC ORAL daily. Vitamin D3-Menaquinone 7 25 mcg (1,000 unit)-90 mcg tablet,disintegrating Take 1 Capsule by mouth daily. ALLERGIES: Patient has no known allergies. Past Medical History: Diagnosis Date IBS (irritable bowel syndrome) Lyme disease 2009 Past Surgical History: Procedure Laterality Date ANTERIOR CRUCIATE LIGAMENT REPAIR Left 1993 KNEE CARTILAGE SURGERY Left 1992 LASIK Bilateral [...] Types: Cigarettes Start date: 1989 Quit date: 2000 Years since quittin.6 Passive exposure: Past (childhood) Smokeless tobacco: Never Vaping Use Vaping status: Never Used Substance and Sexual Activity Alcohol use: Yes Comment: 1-3 glasses of wine every night. Drug use: Never Sexual activity: Not on file Other Topics Concern Not on file Social History Narrative Not on file Social Determinants of Health Financial Strain: Not on file Food Insecurity: Not on file Transportation Needs: Not on file Physical Activity: Not on file Housing Stability: Not on file PHYSICAL EXAMINATION: BP 118/68 (BP Cuff Location: Right arm, BP Patient Position: Sitting, BP Cuff Sizes: Adult, large) Pulse 78 Temp 36.3 ??C (97.3 ??F) (Tympanic) Ht 177.8 cm (70) Wt 100.7 kg (222 lb) SpO2 96% BMI 31.85 kg/m?? Constitutional: Not in distress Head: Normocephalic Eyes: No erythema. Conjunctiva moist Mouth: No oral ulcers. Mucosa moist. Lymph nodes: No cervical lymphadenopathy Cardiac: Normal rate, rhythm. Normal S1S2, no murmurs Pulmonary: Normal breath sounds on auscultation. Neurological: AOx3. Extremity: No edema Skin: no rashes. MSK Exam: Neck: Intact ROM Back: Intact ROM, L-spine, B/L SI Joint Non-tender Shoulder: Intact ROM. No tenderness, swelling in b/l shoulders. Elbows, Wrists: No joint swelling, tenderness, erythema. Intact ROM Hands: No joint swelling, tenderness, erythema. Able to make tight fists BL but with mild stiffness. Hips: Intact ROM, no tenderness with ROM < no tenderness over greater trochanters. Knees: mild crepitations with ROM in R knee. No swelling, warmth, tenderness, erythema in BL knee. Intact ROM in BL knee without pain. Ankles, Feet: trace tenderness over R #1 MTP, otherwise No joint swelling, tenderness, erythema. Intact ROM No nail pitting or onycholysis No Dactylitis, Enthesitis LABS No visits with results within 3 Month(s) from this visit. Latest known visit with results is: Phlebotomy Only on 07/21/2023 Component Date Value Anti-DNA (Double Strande* 07/21/2023 <12.3 SM (Castro) Antibody 07/21/2023 3.1 AUTO ENGINE MECHANIC Antibody 07/21/2023 2.4 SSA Antibody 07/21/2023 1.6 SSB Antibody 07/21/2023 2.4 CCP Antibodies 07/21/2023 <2.5 Hepatitis B Core Ab, Tot* 07/21/2023 Negative Hep B Surface Ag 07/21/2023 Negative Hep C Antibody 07/21/2023 Negative C-Reactive Protein 07/21/2023 7.2 Sed Rate 07/21/2023 6 WBC 07/21/2023 6.21 RBC 07/21/2023 4.36 Hemoglobin 07/21/2023 13.6 HCT 07/21/2023 39.6 MCV 07/21/2023 91 MCH 07/21/2023 31.2 MCHC 07/21/2023 34.3 RDW-CV 07/21/2023 12.6 RDW-SD 07/21/2023 41.2 PLT 07/21/2023 197 MPV 07/21/2023 10.2 % Neutrophils 07/21/2023 53.7 % Lymphocytes 07/21/2023 33.3 % Monocytes 07/21/2023 10.3 % Eosinophils 07/21/2023 1.8 % Basophils 07/21/2023 0.6 % Immature Grans 07/21/2023 0.3 Absolute Neutrophils 07/21/2023 3.33 Absolute Lymphocytes 07/21/2023 2.07 Absolute Monocytes 07/21/2023 0.64 Absolute Eosinophils 07/21/2023 0.11 ABS Basophils 07/21/2023 0.04 Absolute Immature Grans 07/21/2023 0.02 Type of Differential: 07/21/2023 Auto Sodium 07/21/2023 141 Potassium 07/21/2023 4.1 Chloride 07/21/2023 103 CO2 Total 07/21/2023 27 Glucose 07/21/2023 92 BUN 07/21/2023 19 Creatinine 07/21/2023 0.87 eGFR 07/21/2023 82 Total Protein 07/21/2023 7.5 Albumin 07/21/2023 4.3 Alkaline Phosphatase 07/21/2023 37 (L) AST 07/21/2023 34 ALT 07/21/2023 25 Bilirubin, Total 07/21/2023 <0.5 Calcium 07/21/2023 9.3 Albumin/Globulin Ratio 07/21/2023 1.3 Anion Gap 07/21/2023 11 Tissue Transglutaminase * 07/21/2023 <1.2 IMAGING: Plan Diagnosis / Assessment: ICD-10-CM ICD-9-CM 1. Polyarthralgia M25.50 719.49 2. Myalgia M79.10 729.1 3. Chronic fatigue R53.82 780.79 1) Recurrent Episodic severe Polyarthralgia, Myalgia: - Work up Labs: - ESR: Normal (6), CRP: Normal (1.8mg/L) 05/2022; Repeat ESR: Normal (6), CRP: 7.2mg/L) 07/2023 - RF: (-) 05/2022 , CCP: (-) 07/2023 - MARY: (1:80, Cytoplasmic, Fine Speckled) 05/2022 - dsDNA, SM, AUTO ENGINE MECHANIC, SSA, SSB: (-) 07/2023 - TTG: (-) [...] ; No Synovitis noted on physical exam (07/2023, 03/2024) - Reports having had about 5 flares since 07/2023. Last 2 flares were worse with fevers, GI symptoms (for 2-3 days bloating, abdominal cramps, nausea, vomiting), Generalized myalgia, extreme fatigue.Vision is a little blurry, twitching of muscles around eyelids, floaters, tenderness of eyeballs when touched. . Last flare started ~ 04/04/24. - In between two episodes she feels much better. - ordered labs to evaluated: CBC diff, CMP, ESR, CRP, Ferritin, TSH, UA micro, Urine Pr/Cr ratio - the cause of these symptoms is unclear. - Monitoring Labs: - 07/2023: - ESR: Normal (6), CRP: 7.2mg/L) - CBC diff, CMP: Normal 2) Chronic R>L Knee pain: - likely non-inflammatory - ordered X rays, pending X ray will order MRI R knee 3) Chronic polyarthralgia: Likely due to Hypermobility EDS: [...] they can develop osteoarthritis earlier in life 4) Positive MARY (1:80, Cytoplasmic, Fine Speckled): - 05/2022 - patient does not have features suggestive of Lupus or Connective Tissue Diseases - MARY is a non-specific test; Though it is positive in SLE and other connective tissue disease, it can also be seen positive in people without any evidence of autoimmune disease. - dsDNA, SM, AUTO ENGINE MECHANIC, SSA, SSB: all (-) 07/2023 Recommendations/Evaluation: Patient Instructions - get X rays today (3rd floor) - get lab work today (2nd floor) - depending on knee X rays, you may need MRI of R knee Return to visit in 2 months (in person) I spent a total of 50 minutes on the date of this encounter meeting with the patient and reviewing documentation/coordinating care as described in the above note. No procedures were performed at the time of the visit. Rashi May MD RAPID3 Summary Functional Status: 4.7 Pain Tolerance: 8 Global Estimate: 6.5 Score: 19.2 Interpretation: High 04/15/2024 14:15 RAPID3 SCORES AND INTERPRETATION Functional Status 4.7 Pain Tolerance 8 Global Estimate 6.5 RAPID3 19.2 Interpretation High Rashi May MD documented in this encounter Plan of Treatment Scheduled Orders Name Type Priority Associated Diagnoses Orde r Schedule XR RHEUMATOLOGY BILATERAL KNEES 3 VIEWS EACH KNEE Imaging Routine Polyarthralgia Expected: 04/15/2024 (Approximate), Expires: 04/15/2025 documented as of this encounter Visit Diagnoses Diagnosis Polyarthralgia- Primary Pain in joint, multiple sites Myalgia Mylagia and myositis, unspecified Chronic fatigue Other malaise and fatigue Positive MARY (antinuclear antibody) Other and unspecified nonspecific immunological findings documented in this encounter Historical Medications * This list may reflect changes made after this encounter. creatine, bulk, 100 % powder daily. SALLY, ZINGIBER OFFICINALIS, ORAL daily. TURMERIC ORAL daily. CAPSICUM, CAYENNE, ORAL Take by mouth daily. rhubarb root extract (ESTROVERA ORAL) Take by mouth daily. betamethasone dipropionate 0.05 % lotion Apply topically as needed for Rash. MAGNESIUM CITRATE ORAL Take 180 mg by mouth daily. 2 capsules daily Vitamin D3-Menaquinone 7 25 mcg (1,000 unit)-90 mcg tablet,disintegrat ing Take 1 Capsule by mouth daily. progesterone (PROMETRIUM) 100 mg capsule Take 1 Capsule by mouth at bedtime. added in this encounter Care Teams Information Technology Instructor Relationship Specialty Start Date End Date Marivel Ricks MD [address] [address] PCP - General 09/30/09 documented as of this encounter
--- OUTSIDE RECORDS SUMMARY | 2024-08-02 00:26 | XMS_ITS | Encounter Summary ---
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 Manager, Acc Phlebotomy Positive MARY (antinuclear antibody); Polyarthralgia; Screening for viral disease Social History Tobacco [...] 07/21/2023 12:14 EST documented in this encounter Plan of Treatment Not on file documented as of this encounter Procedures Procedure Name Priority Date/Time Associated Diagnosis Comments SS-B (LA) ANTIBODY, IGG Routine 07/21/20 23 16:18 EST Positive MARY (antinuclear antibody) ZZHN SSA ANTIBODIES BY ANDREA Routine 07/21/2023 16:18 EST Positive MARY (antinuclear antibody) SM (CASTOR) ANTIBODY, IGG Routine 023 16:18 EST Positive MARY (antinuclear antibody) CCP ANTIBODIES Routine 07/21/2023 16:18 EST Polyarthralgia HEPATITIS C AB W REFLEX TO HCV RNA BY PCR Routine 07/21/2023 16:18 EST Screening for viral disease CIRCUIT WALKER ANTIBODY, IGG Routine 07/21/2023 16: 18 EST Positive MARY (antinuclear antibody) TISSUE TRANSGLUTAMINASE ANTIBODY, IGA Routine 07/21/2023 16:18 EST Polyarthralgia DOUBLE STRANDED DNA ANTIBODY, IGG Routine 07/21/2023 16:18 EST Positive MARY (antinuclear antibody) HEPATITIS B CORE ANTIBODY (TOTAL) Routine 07/21/2023 16:18 EST Screening for viral disease HEPATITIS B SURFACE ANTIGEN Routine 07/21/2023 16:18 EST Screening for viral disease SED RATE Routine 07/21/2023 16:18 EST Polyarthralgia COMPLETE BLOOD COUNT AND DIFFERENTIAL Routine 07/21/2023 16:18 EST Positive MARY (antinuclear antibody) C REACTIVE PROTEIN Routine 07/21/2023 16 :18 EST Polyarthralgia COMPREHENSIVE METABOLIC PANEL (CMP) Routine 07/21/2023 16:18 EST Positive MARY (antinuclear antibody) documented in this encounter Results * TISSUE TRANSGLUTAMINASE AB, IGA (07/21/2023 16:18 EST) Tissue Transglutaminase Antibody IGA <1.2 <4.0 U/mL 07/24/2023 8:04 [facility] Comment: A negative result may be due to IgA deficiency and does not rule out celiac disease. ? Negative: ??<4.0 U/mL ? Weak Positive: ??4.0 - 10.0 U/mL ? Positive: ??>10.0 U/mL Results were obtained with the [employer] Lite R h-tTG IgA ANDREA assay on the [employer]. Blood VENOUS BLOOD / Unknown Venipuncture / Unknown 07/21/2023 16:18 EST 07/21/2023 16:41 EST Rashi May MD IMMUNOLOGY AND SEROLOGY ORDERAB LES Final Result [facility] [address] [place] [address] * (ABNORMAL) COMPREHENSIVE METABOLIC PANEL (CMP) (07/21/2023 16:18 EST) Pathologist [facility] Sodium 141 136 - 145 mmol/L 07/21/2023 17:09 [facility] Potassium 4.1 3.5 - 5.0 mmol/L 07/21/2023 17:09 [facility] Chloride 103 96 - 110 mmol/L 07/21/2023 17:09 [facility] CO2 Total 27 22 - 32 mmol/L 07/21/2023 17:09 [facility] Glucose 92 70 - 99 mg/dl 07/21/2023 17:09 [facility] BUN 19 10 - 26 mg/dL 07/21/2023 17:09 [facility] Creatinine 0.87 0.52 - 1.04 mg/dL 07/21/2023 17:09 [facility] eGFR 82 >60 mL/min/1.7 3m2 07/21/2023 17:09 [facility] Total Protein 7.5 6.3 - 8.2 g/dL 07/21/2023 17:09 [facility] Albumin 4.3 3.4 - 4.9 g/dL 07/21/2023 17:09 [facility] Alkaline Phosphatase 37(L) 38 - 126 U/L 07/21/2023 17:09 [facility] AST 34 15 - 46 U/L 07/21/2023 17:09 [facility] ALT 25 <35 U/L 07/21/2023 17:09 [facility] Bilirubin, Total <0.5 <1.4 mg/dL 07/21/20 17:09 [facility] Calcium 9.3 8.5 - 10.5 mg/dL 07/21/2023 17:09 [facility] Albumin/Globulin Ratio 1.3 1.0 - 2.5 g/dL 07/21/2023 17:09 [facility] Anion Gap 11 5 - 14 mmol/L 07/21/2023 17:09 [facility] Blood VENOUS BLOOD / Unknown Venipuncture / Unknown 07/21/2023 16:18 EST 07/21/2023 16:41 EST us Rashi May MD CHEMISTRY & BLOOD GAS ORDERABLE S Final Result [facility] [address] [place] [address] * COMPLETE BLOOD COUNT AND DIFFERENTIAL (07/21/2023 16:18 EST) WBC 6.21 4.00 - 12.40 K/cmm 07/21/2023 16:48 [facility] RBC 4.36 3.86 - 5.04 M/cmm 07/21/2023 16:48 [facility] Hemoglobin 13.6 11.6 - 15.2 g/dL 07/21/2023 16:48 [facility] HCT 39.6 34.9 - 44.4 % 07/21/2023 16:48 [facility] MCV 91 81 - 98 fL 07/21/2023 16:48 [facility] MCH 31.2 26.7 - 33.3 pg 07/21/2023 16:48 [facility] MCHC 34.3 32.1 - 35.9 g/dL 07/21/2023 16:48 [facility] RDW-CV 12.6 <14.7 % 07/21/2023 16:48 [facility] RDW-SD 41.2 <50.4 fl 07/21/2023 16:48 [facility] PLT 197 141 - 377 K/cmm 07/21/2023 16:48 [facility] MPV 10.2 9.5 - 12.7 fL 07/21/2023 16:48 [facility] % Neutrophils 53.7 % 07/21/2023 16:48 [facility] % Lymphocytes 33.3 % 07/21/2023 16:48 [facility] % Monocytes 10.3 % 07/21/2023 16:48 [facility] % Eosinophils 1.8 % 07/21/2023 16:48 [facility] % Basophils 0.6 % 07/21/2023 16:48 [facility] % Immature Grans 0.3 % 07/21/20 16:48 [facility] Absolute Neutrophils 3.33 2.20 - 8.85 K/cmm 07/21/2023 16:48 [facility] Absolute Lymphocytes 2.07 1.09 - 3.30 K/cmm 07/21/2023 16:48 [facility] Absolute Monocytes 0.64 0.10 - 0.80 K/cmm 07/21/2023 16:48 [facility] Absolute Eosinophils 0.11 0.03 - 0.61 K/cmm 07/21/2023 16:48 [facility] ABS Basophils 0.04 0.01 - 0.11 K/cmm 07/21/2023 16:48 EST [facility] Absolute Immature Grans 0.02 0.00 - 0.06 K/cmm 07/21/2023 16:48 EST [facility] Type of Differential: Auto 07/21/2023 16:48 EST [facility] Blood VENOUS BLOOD / Unknown Venipuncture / Unknown 07/21/2023 16:18 EST 07/21/2023 16:41 EST us Rashi May MD PACKAGES & DNA PROBE ORDERABLES Final Result Performing Organization Address City/[facility]/ZIP Co de Phone Number [facility] [address] [place] [address] * SED RATE (07/21/2023 16:18 EST) Sed Rate 6 0 - 20 mm/hr 07/21/2023 17:00 EST [facility] Blood VENOUS BLOOD / Unknown Venipuncture / Unknown 07/21/2023 16:18 EST 07/21/2023 16:41 EST us Rashi May MD HEMATOLOGY & PF4 ORDERABLES Fin al Result Performing Organization Address City/[facility]/ZIP Co de Phone Number [facility] [address] [place] [address] * C REACTIVE PROTEIN (07/21/2023 16:18 EST) C-Reactive Protein 7.2 <10.0 mg/L 07/21/2023 17:12 EST [facility] Blood VENOUS BLOOD / Unknown Venipuncture / Unknown 07/21/2023 16:18 EST 07/21/2023 16:41 EST us Rashi May MD CHEMISTRY & BLOOD GAS ORDERABLE S Final Result Performing Organization Address City/[facility] Co de Phone Number [facility] [address] [place] [address] * HEPATITIS C AB W REFLEX TO HCV RNA BY PCR (07/21/2023 16:18 EST) Hep C Antibody Negative Negative 07/24/2023 17:37 EST [facility] Blood VENOUS BLOOD / Unknown Venipuncture / Unknown 07/21/2023 16:18 EST 07/21/2023 16:40 EST us Rashi May MD CHEMISTRY & BLOOD GAS ORDERABLE S Final Result Performing Organization Address City/[facility]/ZIP Co de Phone Number [facility] [address] [place] [address] * HEPATITIS B SURFACE ANTIGEN (07/21/2023 16:18 EST) Pathologist [facility] Hep B Surface Ag Negative Negative 07/24/2023 13:03 EST [facility] Blood VENOUS BLOOD / Unknown Venipuncture / Unknown 07/21/2023 16:18 EST 07/21/2023 16:40 EST us Rashi May MD CHEMISTRY & BLOOD GAS ORDERABLE S Final Result Performing Organization Address [facility]/ZIP Co de Phone Number [facility] [address] [place] [address] * HEPATITIS B CORE ANTIBODY (TOTAL) (07/21/2023 16:18 EST) Pathologist [facility] Hepatitis B Core Ab, Total Negative Negative 07/24/2023 13:44 EST [facility] Blood VENOUS BLOOD / Unknown Venipuncture / Unknown 07/21/2023 16:18 EST 07/21/2023 16:40 EST us Rashi May MD CHEMISTRY & BLOOD GAS ORDERABLE S Final Result Performing Organization Address City/[facility]/ZIP Co de Phone Number [facility] [address] [place] [address] * CCP ANTIBODIES (07/21/2023 16:18 EST) Pathologist [facility] CCP Antibodies <2.5 <5.0 U/mL 07/24/2023 8:47 EST [facility] Blood VENOUS BLOOD / Unknown Venipuncture / Unknown 07/21/2023 16:18 EST 07/21/2023 16:40 EST us Rashi May MD IMMUNOLOGY AND SEROLOGY ORDERAB LES Final Result Performing Organization Address [facility] de Phone Number [facility] [address] [place] [address] * SSB ANTIBODIES BY ANDREA (07/21/2023 16:18 EST) SSB Antibody 2.4 <20.0 Units 07/25/2023 10:01 EST [facility] Comment: ? Negative: <20.0 Units ? Weak Positive: 20.0 - 39.9 Units ? Moderate Positive: 40.0 - 80.0 Units ? Strong Positive: >80.0 Units Results were obtained with the [employer] QUANTA Lite SS-B ANDERA. ??SS-B values obtained with different manufacturers' assay methods may not be used interchangeably. ??The magnitude of the reported IgG levels cannot be correlated to an endpoint titer. Blood VENOUS BLOOD / Unknown Venipuncture / Unknown 07/21/2023 16:18 EST 07/21/2023 16:40 EST us Rashi May MD IMMUNOLOGY AND SEROLOGY ORDERAB LES Final Result Performing Organization Address [facility] de Phone Number [facility] [address] [place] [address] * SSA ANTIBODIES BY ANDREA (07/21/2023 16:18 EST) SSA Antibody 1.6 <20.0 Units 07/25/2023 10:01 EST [facility] Comment: ? Negative: <20.0 Units ? Weak Positive: 20.0 - 39.9 Units ? Moderate Positive: 40.0 - 80.0 Units ? Strong Positive: >80.0 Units Results were obtained with the [employer]OVA QUANTA Lite SS-A ANDREA. ??SS-A values obtained with different manufacturers' assay methods may not be used interchangeably. ??The magnitude of the reported IgG levels cannot be correlated to an endpoint titer. Blood VENOUS BLOOD / Unknown Venipuncture / Unknown 07/21/2023 16:18 EST 07/21/2023 16:40 EST Rashi May MD IMMUNOLOGY AND SEROLOGY ORDERAB LES Final Result Performing Organization Address [facility] de Phone Number [facility] [address] [place] [address] * CIRCUIT WALKER ANTIBODIES BY ANDREA (07/21/2023 16:18 EST) [facility] Signature CIRCUIT WALKER Antibody 2.4 <20.0 Units 07/25/2023 10:01 EST [facility] Comment: ? Negative: <20.0 Units ? Weak Positive: 20.0 - 39.9 Units ? Moderate Positive: 40.0 - 80.0 Units ? Strong Positive: >80.0 Units Results were obtained with the [employer] Quanta Lite CIRCUIT WALKER ANDREA. CIRCUIT WALKER values obtained with different ripening room operator's assay methods may not be used interchangeaby. ??The magnitude of the reported IgG levels cannot be be correlated to an endpoint titer. A positive result in the Quanta Lite CIRCUIT WALKER ANDREA indicates the presence of antibodies reactive with the CIRCUIT WALKER/Sm complex but cannot distinguish between anti-Sm and anti-CIRCUIT WALKER activity. Blood VENOUS BLOOD / Unknown Venipuncture / Unknown 07/21/2023 16:18 EST 07/21/2023 16:41 EST Rashi May MD IMMUNOLOGY AND SEROLOGY ORDERAB LES Final Result Performing Organization Address [facility] de Phone Number [facility] [address] [place] [address] * SM (CASTRO) ANTIBODY (07/21/2023 16:18 EST) SM (Castro) Antibody 3.1 <20.0 Units 07/25/2023 10:01 EST [facility] Comment: ? Negative: <20.0 Units ? Weak Positive: 20.0 - 39.9 Units ? Moderate Positive: 40.0 - 80.0 Units ? Strong Positive: >80.0 Units Results were obtained with the [employer] QUANTA Lite Sm ANDREA. ??Sm values obtained with different manufacturers' assay methods may not be used interchangeably. ??The magnitude of the reported IgG levels cannot be correlated to an endpoint titer. Blood VENOUS BLOOD / Unknown Venipuncture / Unknown 07/21/2023 16:18 EST 07/21/2023 16:40 EST Rashi May MD IMMUNOLOGY AND SEROLOGY ORDERAB LES Final Result [facility] [address] [place] [address] * ANTI DNA (DOUBLE STRANDED) (07/21/2023 16:18 EST) Anti-DNA (Double Stranded) <12.3 <30.0 IU/mL 07/25/2023 9:39 [facility] Comment: ? Negative: ??<30.0 IU/mL ? Borderline Positive: ??30.0 - 75.0 IU/mL ? Positive: ??>75.0 IU/mL Results were obtained with the [employer] QUANTA Lite dsDNA SC ANDREA assay on the [employer]. Blood VENOUS BLOOD / Unknown Venipuncture / Unknown 07/21/2023 16:18 EST 07/21/2023 16:40 EST us Rashi May MD IMMUNOLOGY AND SEROLOGY ORDERAB LES Final Result [facility] [address] [place] [address] documented in this encounter Visit Diagnoses Diagnosis Positive MARY (antinuclear antibody) Other and unspecified nonspecific immunological findings Polyarthralgia Pain in joint, multiple sites Screening for viral disease Special screening examination for unspecified viral disease documented in this encounter Care Teams Sand Tester Relationship Specialty Start Date End Date Marivel Ricks MD [address] [address] PCP - General 09/30/09 documented as of this encounter
--- OUTSIDE RECORDS SUMMARY | 2024-08-02 00:26 | XMS_ITS | Encounter Summary ---
Author Organization [facility] Address [address] [place] [address] Care Team Providers Care Terminal Gauger Supervisor Name Role Phone Marivel Ricks MD Primary Care Provider [phone] Reason for Referral * Radiology Services (Routine/Next Available) - New Request Specialty Diagnoses / Procedures Referred By Joseph germain Referred To Contact Diagnoses Polyarthralgia Procedures XR RHEUMATOLOGY BILATERAL KNEES 3 VIEWS EACH KNEE Rashi May MD [address] [place] [phone] Phone: tel: fax: External Referral ID Status Reason Start Date Expiration Date V isits Requested Visits Authorized [id number] New Request 06/12/2024 1 1 * Laboratory Services (Routine/Next Available) - New Request Specialty Diagnoses / Procedures Referred By Joseph germain Referred To Contact Diagnoses Polyarthralgia Positive MARY (antinuclear antibody) Procedures UA CHEMICAL & SEDIMENT Rashi May MD [address] [phone] Phone: tel: fax: Referral ID Status Reason Start Date Expiration Date V isits Requested Visits Authorized [id number] New Request 06/11/2024 1 1 * Laboratory Services (Routine/Next Available) - New Request Specialty Diagnoses / Procedures Referred By Joseph germain Referred To Contact Diagnoses Polyarthralgia Positive MARY (antinuclear antibody) Procedures PROTEIN/CREATININE RATIO, URINE Rashi May MD [address] [place], [place] [address] Phone: tel: fax: Referral ID Status Reason Start Date Expiration Date V isits Requested Visits Authorized [id number] New Request 06/11/2024 1 1 * Laboratory Services (Routine/Next Available) - New Request Specialty Diagnoses / Procedures Referred By Joseph germain Referred To Contact Diagnoses Polyarthralgia Procedures FERRITIN Rashi May MD [address] [place] [phone] Phone: tel: fax: Referral ID Status Reason Start Date Expiration Date V isits Requested Visits Authorized [id number] New Request 06/11/2024 1 1 * Laboratory Services (Routine/Next Available) - New Request Specialty Diagnoses / Procedures Referred By Joseph germain Referred To Contact Diagnoses Polyarthralgia Myalgia Chronic fatigue Positive MARY (antinuclear antibody) Procedures COMPREHENSIVE METABOLIC PANEL (CMP) Rashi May MD [address] [place], [place] [phone] Phone: tel: fax: Referral ID Status Reason Start Date Expiration Date V isits Requested Visits Authorized [id number] New Request 06/11/2024 1 1 * Laboratory Services (Routine/Next Available) - New Request Specialty Diagnoses / Procedures Referred By Joseph t Referred To Contact Diagnoses Polyarthralgia Myalgia Chronic fatigue Positive AMRY (antinuclear antibody) Procedures COMPLETE BLOOD COUNT AND DIFFERENTIAL Rashi May MD [address] [place], [place] [phone] Phone: tel: fax: Referral ID Status Reason Start Date Expiration Date V isits Requested Visits Authorized [id number] New Request 06/11/2024 1 1 * Laboratory Services (Routine/Next Available) - New Request Specialty Diagnoses / Procedures Referred By Joseph germain Referred To Contact Diagnoses Chronic fatigue Procedures TSH Rashi May MD [address] [place], [place] [phone] Phone: tel: fax: Referral ID Status Reason Start Date Expiration Date V isits Requested Visits Authorized [id number] New Request 06/11/2024 1 1 * Laboratory Services (Routine/Next Available) - New Request Specialty Diagnoses / Procedures Referred By Joseph germain Referred To Contact Diagnoses Polyarthralgia Procedures SED RATE Rashi May MD [address] [place], [place] [phone] Phone: tel: fax: Referral ID Status Reason Start Date Expiration Date V isits Requested Visits Authorized [id number] New Request 06/11/2024 1 1 * Laboratory Services (Routine/Next Available) - New Request Specialty Diagnoses / Procedures Referred By Joseph germain Referred To Contact Diagnoses Polyarthralgia Procedures C REACTIVE PROTEIN Rashi May MD [address] [place], [place] [phone] Phone: tel: fax: Referral ID Status Reason Start Date Expiration Date V isits Requested Visits Authorized [id number] New Request 06/11/2024 1 1 Reason for Visit * Reason Onset Date Comments Labs Only 06/11/2024 Encounter Details Date Type Department Care Team (Late st Contact Info) Description 06/11/2024 Telephone [facility] Rheumatology & Immunology - [address] [address] Rashi May MD [address] [place] [address], [address] [place] [address] Labs Only Social History Tobacco Use Types Packs/Day Years [...] 04/15/2024 14:16 EDT documented in this encounter Miscellaneous Notes * Telephone Encounter - Callum Moon - 06/12/2024 1529 EDT Labs faxed to [facility] on 06/12/2024, I spoke with patient and gave her the message. * Telephone Encounter - Aure Vazquez RN - 06/12/2024 1521 EDT Patient wants her XR knees to be done at [facility]. Reordering for external and faxing to [facility] Radiology. * Telephone Encounter - Dodie Patricia - 06/11/2024 1451 EDT Patient is calling to see if labs were sent to [facility] so she can schedule her upcoming visit. Please reach out to follow up when possible. documented in this encounter Plan of Treatment Scheduled Orders Name Type Priority Associated Diagnoses Orde r Schedule C REACTIVE PROTEIN Lab Routine Polyarthralgia Expected: 06/11/2024 (Approximate), Expires: 06/11/2025 SED RATE Lab Routine Polyarthralgia Expected: 06/11/2024 (Approximate), Expires: 06/11/2025 TSH Lab Routine Chronic fatigue Expected: 06/11/2024 (Approximate), Expires: 06/11/2025 COMPLETE BLOOD COUNT AND DIFFERENTIAL Lab Routine Polyarthralgia Myalgia Chronic fatigue Positive MARY (antinuclear antibody) Expected: 06/11/2024 (Approximate), Expires: 06/11/2025 COMPREHENSIVE METABOLIC PANEL (CMP) Lab Routine Polyarthralgia Myalgia Chronic fatigue Positive MARY (antinuclear antibody) Expected: 06/11/2024 (Approximate), Expires: 06/11/2025 FERRITIN Lab Routine Polyarthralgia Expected: 06/11/2024 (Approximate), Expires: 06/11/2025 PROTEIN/CREATININE RATIO, URINE Lab Routine Polyarthralgia Positive MARY (antinuclear antibody) Expected: 06/11/2024 (Approximate), Expires: 06/11/2025 UA CHEMICAL & SEDIMENT Lab Routine Polyarthralgia Positive MARY (antinuclear antibody) Expected: 06/11/2024 (Approximate), Expires: 06/11/2025 XR RHEUMATOLOGY BILATERAL KNEES 3 VIEWS EACH KNEE Imaging Routine Polyarthralgia Expected: 06/12/2024, Expires: 06/12/2025 documented as of this encounter Visit Diagnoses Diagnosis Polyarthralgia- Primary Pain in joint, multiple sites Myalgia Mylagia and myositis, unspecified Chronic fatigue Other malaise and fatigue Positive MARY (antinuclear antibody) Other and unspecified nonspecific immunological findings documented in this encounter Care Teams Terminal Gauger Supervisor Relationship Specialty Start Date End Date Marivel Ricks MD [address] [address] PCP - General 09/30/09 documented as of this encounter
--- OUTSIDE RECORDS SUMMARY | 2024-08-02 00:26 | XMS_ITS | Encounter Summary ---
Author Organization [facility] Address [address] [place] [address] Care Team Providers Care Subpoena Server Name Role Phone Marivel Ricks MD Primary Care Provider [phone] Encounter Details Date Type Department Care Team (Late st Contact Info) Description 11/17/2023 Documentation Visit [facility] Rheumatology & Immunology - [facility] [address] [place] [address] Megan Mathews MA Social History Tobacco Use Types Packs/Day Years [...] 07/21/2023 12:14 EST documented in this encounter Progress Notes * Megan Mathews MA - 11/17/2023 1016 EDT Faxed 07/21/23 rheumatology office note and labs to [facility] at [phone] documented in this encounter Plan of Treatment Not on file documented as of this encounter Visit Diagnoses Not on filedocumented in this encounter Care Teams Subpoena Server Relationship Specialty Start Date [place] [address] PCP - General 09/30/09 documented as of this encounter
--- OUTSIDE RECORDS SUMMARY | 2024-08-02 00:26 | XMS_ITS | Encounter Summary ---
Author Organization [facility] Address [address] [place] [address] Care Team Providers Care Transcripter Name Role Phone Marivel Ricks MD Primary Care Provider [phone] Reason for Visit * Reason Onset Date Comments Appointment Related 06/12/2024 Encounter Details Date Type Department Care Team (Late st Contact Info) Description 06/12/2024 Telephone [facility] Rheumatology & Immunology - [address] [id number] Rashi May MD [address] [place] [address], [address] [place] [address] Appointment Related Social History Tobacco Use Types Packs/Day Years [...] Telephone Encounter - Callum Moon - 06/12/2024 1524 EDT Spoke with patient on 06/12/2024 orders were faxed to [place] and RHEUMATOLOGY BILATERAL KNEES 3 VIEWS EACH KNEE was changed from [facility] to [facility] documented in this encounter Plan of Treatment Not on file documented as of this encounter Visit Diagnoses Not on filedocumented in this encounter Care Teams Transcripter Relationship Specialty Start Date End Date Marivel Ricks MD [address] [address] PCP - General 09/30/09 documented as of this encounter
--- OUTSIDE RECORDS SUMMARY | 2024-08-02 00:26 | XMS_ITS | Encounter Summary ---
Author Organization [facility] Address [address] [place] [address] Care Team Providers Care Supervisor [employer] Name Role Phone Marivel Ricks MD Primary Care Provider Encounter Details Date Type Department Care Team (Late st Contact Info) Description 05/21/2024 Lab Requisition [facility] Pathology & Laboratory Medicine - [address] [address] Kathrin Rodriguez, DO [address] [address] Unspecified menopausal and perimenopausal disorder Social History Tobacco Use Types Packs/Day Years [...] 04/15/2024 14:16 EDT documented in this encounter Plan of Treatment Not on file documented as of this encounter Procedures Procedure Name Priority Date/Time Associated Diagnosis Comments SURGICAL PATHOLOGY Today 05/21/2024 9: 30 EDT Unspecified menopausal and perimenopausal disorder documented in this encounter Results * SURGICAL PATHOLOGY (05/21/2024 9:30 EDT) Note to Patient The following pathology results have been interpreted by your pathologist and may be available to you before your health provider has had the opportunity to review them. Please allow time for your provider to receive these results and explore management options, if applicable. 05/24/2024 14:49 [facility] Final Diagnosis A. ENDOMETRIUM, CURETTAGE: - Endometrial polyp. - Strips and fragments of inactive endometrium. - No cytologic atypia identified. B. ENDOMETRIUM, POLYPECTOMY: - Endometrial polyp. - No cytologic atypia identified. 05/24/2024 14:49 [facility] Attestation There was significant resident/fellow involvement in the diagnostic evaluation of this case. By the signature below, the attending physician certifies that they have personally conducted a gross and/or microscopic examination of the described specimens and rendered or confirmed the above diagnosis. 05/24/2024 14:49 [facility] at 1449 Clinical History Unspecified menopausal and perimenopausal disorder 05/24/2024 14:49 [facility] Gross Description A. Received in [...] KATHLEEN BUTLER(ASCP) 05/22/2024 8:26 05/24/2024 14:49 EDT [facility] Resident/Swapnil w: Dusty Lora MD 05/24/2024 14:49 EDT [facility] Performing Lab [facility] 05/24/2024 14:49 EDT [facility] Scanned Images 05/24/2024 14:49 EDT [facility] Tissue ENDOMETRIAL STRUCTURE / Unknown 05/21/2024 9:30 EDT 05/21/2024 23:00 EDT Tissue specimen (specimen) ENDOMETRIAL STRUCTURE / Unknown 05/21/2024 9:30 EDT 05/21/2024 23:00 EDT Kathrin Rodriguez DO PATHOLOGY ORDERA BLES Final Result [facility] [address] [place] [id number] documented in this encounter Visit Diagnoses Diagnosis Unspecified menopausal and perimenopausal disorder documented in this encounter Care Teams Supervisor [employer] Relationship Specialty Start Date End Date Marivel Ricks MD [address] [address] PCP - General 09/30/09 documented as of this encounter
--- OUTSIDE RECORDS SUMMARY | 2024-08-02 00:26 | XMS_ITS | Encounter Summary ---
Author Organization [facility] Address [address] [place] [address] Care Team Providers Care Corporate Consultant Name Role Phone Marivel Ricks MD Primary Care Provider [phone] Reason for Visit * Reason Onset Date Comments Follow-up 06/05/2024 Encounter Details Date Type Department Care Team (Late st Contact Info) Description 06/05/2024 Telephone [facility] Rheumatology & Immunology - [address] [address] Rashi May MD [address] [place] [address], [address] [place] [address] Follow-up Social History Tobacco Use Types Packs/Day Years [...] * Telephone Encounter - Arabella Mccray - 06/10/2024 0957 EDT 2nd attempt - left message on machine to call back and reschedule. Patient had appointment on 06.11.[address] May. Seeing if wanting to reschedule cancelled appointment. Please reschedule from the past tab. * Telephone Encounter - Arabella Mccray - 06/05/2024 0940 EDT 1st attempt - left message on machine to call back and reschedule. Patient had appointment on 06.11.[address] May. Seeing if wanting to reschedule cancelled appointment. Please reschedule from the past tab. documented in this encounter Plan of Treatment Not on file documented as of this encounter Visit Diagnoses Not on filedocumented in this encounter Care Teams Corporate Consultant Relationship Specialty Start Date End Date Marivel Ricks MD [address] [address] PCP - General 09/30/09 documented as of this encounter
--- OUTSIDE RECORDS SUMMARY | 2024-08-02 00:26 | XMS_ITS | Clinical Summary ---
Author Organization [facility] Address [address] [place] [address] Care Team Providers Care Marketing Support Assistant Name Role Phone Marivel Ricks MD Primary Care Provider [phone] Allergies No known active allergies Medications progesterone [...] original. Patient has given permission for [facility] to verbally discuss the following information with [...] revoke it. No additional problems on file Encounters Date Type Department Care Team Description 06/12/2024 Telephone [facility] Rheumatology & Immunology [address] [address] Rashi May MD Appointment Related 06/11/2024 Telephone [facility] Rheumatology & Immunology [address] [address] Rashi May MD Labs Only 06/05/2024 Telephone [facility] Rheumatology & Immunology [address] [address] Rashi May MD Follow-up 05/21/2024 Lab Requisition [facility] Pathology & Laboratory Medicine [address] [address] Kathrin Rodriguez, Unspecified menopausal and perimenopausal disorder from Last 3 Months Surgical History Surgery Date Site/Laterality Comments ANTERIOR CRUCIATE LIGAMENT REPAIR 08/21/1992 - 3 Left KNEE CARTILAGE SURGERY 08/21/1992 - 08/20/1993 Left LASIK Bilateral Medical History Medical History Date Comments Lyme disease 2010 IBS (irritable bowel syndrome) Family History Medical History Relation Comments Diverticulitis Mother Relation Status Comments Mother Social History Tobacco Use Types Packs/Day Years [...] on file Sexual Orientation Not on file Obstetrics History Last Filed Vital Signs Vital Sign Reading [...] Body Mass Index 31.85 04/15/2024 1417 EDT Plan of Treatment Health Maintenance Due Date Last Done Comments Hepatitis B Vaccine (1 of 3 - 19+ 3-dose series) 11/13 COVID-19 Vaccine (2023- season) 2024 Hepatitis C Screen Completed 07/21/2023 Procedures Procedure Name Priority Date/Time Associated Diagnosis [...] explore management options, if applicable. 05/24/2024 14:49 T [facility] Final Diagnosis A. ENDOMETRIUM, CURETTAGE: - Endometrial polyp. - Strips and fragments of inactive endometrium. - No cytologic atypia identified. B. ENDOMETRIUM, POLYPECTOMY: - Endometrial polyp. - No cytologic atypia identified. 05/24/2024 14:49 T [facility] Attestation There was significant resident/fellow involvement in the diagnostic evaluation of this case. By the signature below, the attending physician certifies that they have personally conducted a gross and/or microscopic examination of the described specimens and rendered or confirmed the above diagnosis. 05/24/2024 14:49 [facility] at 1449 Clinical History Unspecified menopausal and perimenopausal disorder 05/24/2024 14:49 EDT [facility] Gross Description A. Received in [...] 05/22/2024 8:26 05/24/2024 14:49 EDT [facility] Resident/Swapnil w: Dusty Lora MD 05/24/2024 14:49 EDT [facility] Performing Lab [facility] 05/24/2024 14:49 EDT [facility] Scanned Images 05/24/2024 14:49 EDT [facility] Tissue ENDOMETRIAL STRUCTURE / Unknown 05/21/2024 9:30 EDT 05/21/2024 23:00 EDT Tissue specimen (specimen) ENDOMETRIAL STRUCTURE / Unknown 05/21/2024 9:30 EDT 05/21/2024 23:00 EDT us Kathrin Rodriguez DO PATHOLOGY ORDERA BLES Final Result [facility] [address] [place] [id number] * HEPATITIS C AB W REFLEX TO HCV RNA BY PCR (07/21/2023 16:18 EST) Hep C Antibody Negative Negative 07/24/2023 17:37 EST [facility] Blood VENOUS BLOOD / Unknown Venipuncture / Unknown 07/21/2023 16:18 EST 07/21/2023 16:40 EST us Rashi May MD CHEMISTRY & BLOOD GAS ORDERABLE S Final Result [facility] [address] [place] [address] from Last 3 Months or Most Recently Relevant to Health Maintenance Insurance * Guarantor: Elyse Perry Account Type Relation to Patient Date of Phone Billing Address Personal/Family Self [address] [place] [address] [facility] Address: [address] [address] * Guarantor: Elyse Perry Account Type Relation to Patient Date of Phone Billing Address Personal/Family Self [address] [place] [address] * Guarantor: Elyse Perry Account Type Relation to Patient Date of Phone Billing Address Personal/Family Self [address] [place] [address] * Guarantor: Elyse Perry Account Type Relation to Patient Date of Phone Billing Address Personal/Family Self [address] [place] [address] * Guarantor: Elyse Perry Account Type Relation to Patient Date of Phone Billing Address Personal/Family Self [address] [place] [address] * Guarantor: Elyse Perry Account Type Relation to Patient Date of Phone Billing Address Personal/Family Self [address] [place] [address] * Guarantor: Elyse Perry Account Type Relation to Patient Date of Phone Billing Address Personal/Family Self 1975 [address] [place] [address] * Guarantor: Elyse Perry Account Type Relation to Patient Date of Phone Billing Address Personal/Family Self [address] [place] [address] Care Teams Marketing Support Assistant Relationship Specialty Start Date End Date Marivel Ricks MD [address] [address] PCP - General 09/30/09
--- OUTSIDE RECORDS SUMMARY | 2024-08-02 00:27 | XMS_ITS | Encounter Summary ---
Author Organization [facility] Address [address] [place] [address] Care Team Providers Care Heddler Name Role Phone Unavailable Primary Care Provider Unavailabl e Encounter Details Date Type Department Care Team (Late st Contact Info) Description 10/21/2005 Before PRISM Converted Visit (Maple) [facility] - Maple conversion [address] [place] [address] Deb Cisneros MD [address] [place] [address] [address] [place] [phone] Social History Tobacco Use Types Packs/Day Years Used Date Smoking Tobacco: Never Assessed Comments Unknown Sex and Gender Information Value Date Recorded Sex Assigned at Not on file Legal Sex Female 17:57 EST Gender Identity Not on file Sexual Orientation Not on file documented as of this encounter Consult Notes * Deb Cisneros MD - 07/31/2009 1313 EST DIVISION OF RHEUMATOLOGY CONSULTATION - October 21, 2005 [place] [address] Schwartz: I had the pleasure of meeting Elyse Perry on 10/21/2005. As you know, she is a 29- year- old woman here for evaluation of arthralgias. Ms. Perry first felt her current joint symptoms in May of 2005. At that time she noted achiness in her shoulder. Shefelt the pain was symmetrical, seemed to be worse in the morning but did not improve with activity. She took ibuprofen up to 800 mg a day with some relief of symptoms but became concerned about the fpc side effects of ibuprofen and lack of diagnosis. She was seeing another provider at the time who obtained laboratory testing which included negative rheumatoid factor, normal sed rate, normal TSH and MARY positive at 1:160. Patient then s witched providers because of concerns about overall medical management of her health and in early August of 2005 was seen for complaints of arthralgias affecting her hands and fingers. No swelling was observed but she felt that her fingers were puffy. Again she noted that with the use of ibuprofenher symptoms seemed toimprove, however, but the symptoms never completely went away. She continued to experience about an hour of morning stiffness mostly in the shoulders and sometimes in the anklesas well. She has no history of illness, fever or chills. Has noted a ten- pounds weight gain and some difficulty with recent onset of depression but no other constitutional symptoms. She reports thatcurrently she is experiencing low grade discomfort in the shoulders and hands. She reports that shehas not been taking ibuprofen because she would like to know what is causing her symptoms before she takes a medication regularly. She has also developed arthralgias in her lateral thighs. She admitsto anhedonia and loss of pleasure in every day activity. She also reports that she used to walk twomiles a day but recently stopped doing so because of discomfort. 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 She denies any family history of inflammatory arthritis and has never had any preceding symptoms throughout her teenage years. She was very physically active playing soccer at a varsity level and sustained several injuries to her left knee. These knee problems have continued to plague her intermittently throughout her adult life. In 2002 she experienced her first panic attack which occurred after an episode of feeling dizzy and lead to an evaluation in the emergency room. She has seen a counselor and manages her symptoms without medication, feels that she has her panic attacks under control and has not had any recent attacks but does admit she is concerned about experiencing one in the future. Other complaints include decreased energy and slightly irregular menstrual cycle. She is having unprotected intercourse but does not believe she is at this time. Medications: One multivitamin a day. She has no known drug allergies. Social: , two children ages 3 and 9 and is employed as described above. She is a nonsmoker having quit seven years ago, drinks three to four glasses of wine a month. No history of abuse or IV drug use. Currently feels she is too busy for hobbies. Past medical history: 1. Significant for anxiety as detailed above, history of ACL injury and repair in 1992, history of LASIK surgery. 2. History of recent onset of depressive symptoms. 3. History of occasional irregular heart rate. 4. History of normal times two resulting in births of sons ages 3 and 9. Family history is significant for hypercholesterolemia and hypertension. Sister who is younger has high cholesterol. On review of systems, complete rheumatologic review of systems as documented on patient intake questionnaire. All pertinent positives listed in HPI, remainder documented in the chart. Pertinent complaints include occasional skin bruising but no Raynaud's or other difficulties. GI: Reflux symptoms which began after her first panic attack and irregular heartbeat usually most prominent at rest as well as complaints of dry mouth. Neurologic: occasionally experiences dizziness but is not troubled bymigraine headaches. Physical examination reveals her to be a pleasant well appearing woman in no apparent distress. Shereports mild discomfort is present in her shoulders, blood pressure 110/62, pulse 80 and respiratory rate 14. Weight 169, height 70- 1/4 inches. Eyes: Pupils equal, round and reactive to light, extraocular movements intact, lids and sclerae unremarkable. Ears: No tophi. Oropharynx unremarkable. Dentition is excellent. Neck range of motion is preserved, no supraclavicular lymphadenopathy. Chest clear to auscultation. Cardiac exam regular rate and rhythm, symmetric radial pulses. No peripheral edema. No skipped beats in heart rate. Abdomen is soft and nontender. Neurologic: Hand director of development and marketing 5/5, shoulder abduction 5/5 and hip flexion 5/5. Straight leg raising negative. Gait within normal limits. Psych: Affect pleasant, oriented and appropriate. Joint examination: Hyperextensibility of the phalanges at the elbows and knees. She is able to stand with both legs straight and place both palms flat onthe floor. impression: 1. Positive MARY at 1:160, no evidence of collagen vascular disease. Further workup not indicated. 2. 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 Reassured her this is a benign syndrome and she is encouraged to exercise as tolerated and can use ibuprofen as needed for arthralgias. The best defense with this syndrome is to remain in good physical condition. 3. Reviewed that this condition can be associated with panic attacks. She does complain of intermittent irregular heart rate which should be worked up further with EKG and echocardiogram. If both of these are negative would suspect she has PVCs and no further evaluation is indicated. 4. Patient was advised to return on an as needed basis but no formal followup appointment was scheduled. It was certainly my pleasure to meet Ms. Perry. Please do not hesitate to call me if you have any further questions. Sincerely, Signed by Deb Cisneros MD 10/27/2005 10:31 Kathe Rodriguez MD Dbe Cisneros MD - Deb Cisneros MD P - O1 Job ID: [id number] Document ID: [id number] cc: *Lelo Schwartz MD * documented in this encounter Plan of Treatment Not on file documented as of this encounter Visit Diagnoses Not on filedocumented in this encounter
--- OUTSIDE RECORDS SUMMARY | 2024-08-02 00:27 | XMS_ITS | Encounter Summary ---
Author Organization [facility] Address [address] [place] [address] Care Team Providers Care Punch Box Tender Name Role Phone Unavailable Primary Care Provider Unavailabl e Encounter Details Date Type Department Care Team (Latest Contact Info) Description 06/20/2002 13:07 EST Hospital Encounter [facility] - Other [address] [place] [address] Kalia Mcwilliams MD Unknown, Provider, Discharge Disposition: Auto Discharge Social History Tobacco Use Types Packs/Day Years Used Date Smoking Tobacco: Never Assessed Comments Unknown Sex and Gender Information Value Date Recorded Sex Assigned at Not on file Legal Sex Female 17:57 EST Gender Identity Not on file Sexual Orientation Not on file documented as of this encounter Discharge Disposition Disposition Code Departure Means Destination Auto Discharge documented in this encounter Plan of Treatment Not on file documented as of this encounter Visit Diagnoses Not on filedocumented in this encounter
--- OUTSIDE RECORDS SUMMARY | 2024-08-02 00:27 | XMS_ITS | Encounter Summary ---
Author Organization [facility] Address [address] [place] [address] Care Team Providers Care Working Manager Name Role Phone Marivel Ricks MD Primary Care Provider [phone] Encounter Details Date Type Department Care Team (Late st Contact Info) Description 10/24/2019 Lab Requisition [facility] Pathology & Laboratory Medicine - [address] [address] Unknown, Provider, Social History Tobacco Use Types Packs/Day Years [...] Procedure Name Priority Date/Time Associated Diagnosis Comments ANTI NUCLEAR AB (MARY), IFA Routine 10/24/2019 13:54 EST documented in this encounter Results * ANTI NUCLEAR AB (MARY), IFA (10/24/2019 13:54 EST) MARY Interpretation Negative Negative 2019 13:41 EST [facility] Blood VENOUS BLOOD / Unknown 10/24/2019 13:54 EST 10/24/2019 21:03 EST Narrative [facility] - 10/25/2019 13:41 EST Results were obtained with the INOVA NOVA Lite HEp-2 MARY Kit by indirect immunofluorescence. us Provider Unknown IMMUNOLOGY AND SEROLOGY SHWETA THOMPSON Final Result [facility] [address] [place] [address] documented in this encounter Visit Diagnoses Not on filedocumented in this encounter Care Teams Working Manager Relationship Specialty Start Date End Date Marivel Ricks MD [address] [address] PCP - General 09/30/09 documented as of this encounter
--- OUTSIDE RECORDS SUMMARY | 2024-08-02 00:27 | XMS_ITS | Encounter Summary ---
Author Organization [facility] Address [address] [place] [address] Care Team Providers Care Screen Printing Paster Name Role Phone Marivel Ricks MD Primary Care Provider [phone] Encounter Details Date Type Department Care Team (Latest Contact Info) Description 10/14/2009 12:08 EST - 10/14/2009 23:59 EST Hospital Encounter [facility] [address] [place] [address] Amador Arango MD [address] [place] [address] Discharge Disposition: Auto Discharge Social History Tobacco Use Types Packs/Day Years Used Date Smoking Tobacco: Never Assessed Comments Unknown Sex and Gender Information Value Date Recorded Sex Assigned at Not on file Legal Sex Female 17:57 EST Gender Identity Not on file Sexual Orientation Not on file documented as of this encounter Discharge Disposition Disposition Code Departure Means Destination Auto Discharge Home documented in this encounter Procedure Notes * Inpatient, Physician - 12/30/2009 1755 EDTAssociated Order(s): ORDERS - SCANNED documented in this encounter Plan of Treatment Not on file documented as of this encounter Procedures Procedure Name Priority Date/Time Associated Diagnosis Comments ORDERS - SCANNED 12/30/2009 17:5 5 EDT documented in this encounter Results * ORDERS - SCANNED (12/30/2009 17:55 EDT) 12/30/2009 17:5 5 EDT Narrative 12/30/2009 18:11 EDT Ordered by an unspecified provider. Transcriptions Inpatient, Physician - 12/30/2009 17:55 EDT Physician Inpatient MD ADMISSION ORDERABLES Roseanna l Result documented in this encounter Visit Diagnoses Not on filedocumented in this encounter Care Teams Screen Printing Paster Relationship Specialty Start Date End Date Marivel Ricks MD [address] [address] PCP - General 09/30/09 documented as of this encounter
--- OUTSIDE RECORDS SUMMARY | 2024-08-02 00:27 | XMS_ITS | Encounter Summary ---
Author Organization [facility] Address [address] [place] [address] Care Team Providers Care Repairer Controller Tester Name Role Phone Unavailable Primary Care Provider Unavailabl e Encounter Details Date Type Department Care Team (Late st Contact Info) Description 12/29/2003 11:24 EDT Hospital Encounter [facility] - Other [address] [place] [address] Roopa Hand MD [address] [place] [address] Social History Tobacco Use Types Packs/Day Years [...] Procedure Name Priority Date/Time Associated Diagnosis Comments CYTOPATHOLOGY Routine 12/29/2003 0:00 EDT documented in this encounter Results * CYTOPATHOLOGY (12/29/2003 0:00 EDT) Pathology Report: CYTOPATHOLOGY REPORT Reports generated via electronic interface contain original data; however they are lacking the format of the original report. Caution should be taken when reading/interpreti ng unformatted reports. Name: ? PRIYA LYLE ? Accession #: ? [id number] : ? 1975 (Age: 28) ??F ?Collect Date: ? 12/29/2003 Location: ? [facility] ? Receive Date: ? 12/30/2003 Provider: ?ROOPA HAND MD Copy to: ? Specimen/Source: ?ThinPrep Pap Test, Cervix/Endocervix Last Menstrual Period: ? 12/20/03 Other: ? HPVA - HPV testing requested if ASC-US on the current ThinPrep Pap test. ? SPECIMEN ADEQUACY ? Satisfactory for Evaluation - transformation zone component present GENERAL CATEGORIZATION ? Negative for Intraepithelial Lesion or Malignancy ? Document reviewed and electronically signed by: ? Karie Leija, SCT(ASCP) ? Report Date: ??01/02/2004 15:40 End of Report [facility] 12/29/2003 12/30/2003 us Roopa Hand MD PATHOLOGY ORDERABLES Fin al Result [facility] [address] [place] [address] documented in this encounter Visit Diagnoses Not on filedocumented in this encounter
--- OUTSIDE RECORDS SUMMARY | 2024-08-02 00:27 | XMS_ITS | Encounter Summary ---
Author Organization [facility] Address [address] [place] [address] Care Team Providers Care Process Planner Name Role Phone Marivel Ricks MD Primary Care Provider [phone] Encounter Details Date Type Department Care Team (Latest Contact Info) Description 01/08/2010 11:33 EDT - 01/08/2010 13:05 EDT Hospital Encounter [facility] Rheumatology & Immunology - [facility] [address], [place] [address] Unknown, Provider, Amador Lynch HMD [address] [place] [address] Discharge Disposition: Home or Self Care Social History Tobacco Use Types Packs/Day Years Used Date Smoking Tobacco: Never Assessed Comments Unknown Sex and Gender Information Value Date Recorded Sex Assigned at Not on file Legal Sex Female 17:57 EST Gender Identity Not on file Sexual Orientation Not on file documented as of this encounter Discharge Disposition Disposition Code Departure Means Destination Home or Self Senior Living documented in this encounter Progress Notes * Amador Arango - 01/08/2010 0000 EDT DIVISION OF RHEUMATOLOGY PROGRESS/FOLLOWUP NOTE - 01/08/2010 I saw the patient in followup of fatigue and positive MARY. SUBJECTIVE: Elyse is here in followup of a number of symptoms including fatigue, generalized pain and discomfort and numbness and tingling and headaches and muscle twitching. I first met her in September, at which time she had symptoms for a few weeks and seemed to be getting better. We elected to work her up for evidence of a connective tissue disease given the weakly positive MARY and also subserologies were negative. She did have elevated CK that was repeated and in normal range. At that time,our thinking with this may be postviral and we were hopeful that she would improve. She was not started on any specific therapy at that time. I have spoken with Elyse a few times over the phone sincethat visit. At one point, she was feeling a bit worse. We repeated a few labs. Her MARY was 1:80 on that check. We recommended that she see a neurologist, which she did and was told that her headacheswere related to occipital neuralgia and she states that the neurologist she saw was not concerned about her involuntary muscle movement. She reports today that her symptoms have continued to worsen. She is describing a pain at areas where she has lymph nodes but has not had any obvious lymph node swelling. She hurts in the neck, axilla, posterior aspects of her knees and in her groin. Frequently she will start with pain like this and then quickly progress to profound fatigue that will last anywhere from one to four days and then she seems to improve a little bit. She has had some itching in her thighs and has bruises from where she has scratched these areas. She denies any other rashes, however. She has had no new symptoms such as Sicca symptoms, Raynaud's or any photosensitivity. 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 She is still able to lift up her children if she wants to carry them, but is not interested in doing so. 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 Elyse is frustrated at her symptoms and the fact that she does not have a diagnosis and is concerned that things have not improved. She is also mentioning a complaint of cough and mild shortness of breath. Occasionally, the cough is productive. REVIEW OF SYSTEMS: Full 12-point review of systems was obtained and documented in the medical record from today's visit. It was negative with the following exceptions: She admits to night sweats, some blurry vision in her eyes, chest pain, shortness of breath, cough, joint pain, morning stiffness lasting for up to one hour, numbness, tingling, headaches, muscle weakness, trouble sleeping, anxietyand depression. MEDICATIONS: Multivitamin daily and vitamin D 1000 units p.o. daily. ALLERGIES: No known drug allergies. OBJECTIVE: Blood pressure 124/70, heart rate 62. She is complaining of 5/10 pain everywhere. In general, she is a pleasant-appearing female who looks her stated age. She is in no acute distress. She does appear frustrated and was tearful at one point during our interview. HEENT: Sclerae are anicteric, conjunctivae are noninjected. Oropharynx is clear. I do not see any sores or ulcers. Neck showed no lymphadenopathy that I could appreciate. She did not have soreness when I was palpating in the areas where she has previously hurt. Other lymph exam of the axilla showed no lymphadenopathy either. Lungs: Clear to auscultation bilaterally. Cardiovascular: Regular rate and rhythm, no murmurs, rubs or gallops. Abdomen: Soft, nontender to deep palpation, no organomegaly. Skin showed no rashes. She did have numerous ecchymoses on the insides of her thighs from where shehas scratched herself. She does have some redness on her cheeks that is more suspicious for rosacea. There is no other evidence of peripheral rashes. Musculoskeletal exam: Did not appreciate any evidence of inflammatory arthritis. Strength testing was 5/5 in the large muscle groups of the upper and lower extremities. She did not have tenderness intypical fibromyalgia tender points. It was a very nonspecific and nonfocal musculoskeletal exam. LABS: Reviewing the workup she has had thus far, MARY was 1:80 in December. Previously it was 1:40. Her CRP was 3.3, upper limit of normal being 3, just on the 25 of December. Creatinine was 0.9. CBC showed a white count of 4.69, lymphs were 2.1%, hemoglobin 14.4, hematocrit 42. Sed rate 11. CPK was 133 on 12/22, on 11/11 it was 163. When I first met her in September it was 239. Her TSH was 1.24, her vitamin D38.9, Aldolase 5.3 in September. ASO titer was negative, double-stranded DNA was negative, Parvo IgMnegative, Castro SSA and SSB and HEALTH POLICY MANAGER were all negative. IMAGING: No available imaging for review. ASSESSMENT: Elyse is a very pleasant 34-year-old female with symptoms of fatigue, musculoskeletal pain and headache with fasciculations, and mild tingling. She does have a weakly positive MARY but other serologies have been negative. She has had a slightly elevated CPK, but no other objective signs of weakness and had a normal aldolase. Her differential remains quite broad. Currently considerations include sarcoidosis and we will work that up with a chest x-ray and we will check an EMMA level pete serum calcium. Undifferentiated connective tissue disease would be a possibility as she really does not have enough criteria presently to diagnose her with lupus. Inflammatory myopathy I think remains unlikely but possible. I think inflammatory arthritis is unlikely. Fibromyalgia or a myofascial pain syndrome is a possibility though she does not have a focal tender point exam. Presently she is so miserable that she is interested in trying some empiric therapy and pursuing further workup. I think that is reasonable. The patient has brought up a concern for lymphoma giving her symptoms of discomfort in areas were she has lymph nodes. I would think is less likely but would be on her differential, I did not identify any obvious enlarged lymph nodes on exam, but we may want to image her if we remain concerned about this. PLAN: 1. I think she would benefit from EMG testing and a neurologic consultation by Dr. Estevez specifically we would question whether there is any evidence of inflammatory myopathy given her symptoms of fasciculations I think further consultation is warranted as well. She has seen a neurologist recently for headaches, but she did not feel that these other symptoms were adequately addressed. 2. I would like to repeat labs including a myositis plus panel, CBC with diff, sed rate, CRP, UA, EMMA level and serum calcium. Would also like to get a chest x-ray to look for any hilar adenopathy. If that is negative, we may proceed with a CT scan, which would be more sensitive 3. In terms of therapy, I discussed empiric use of prednisone to see if she responds to this and she is agreeable to doing so. We will give her 40 mg a day for a week, and then decrease by 10 mg every week until she is off. I have asked her to call me next week to let me know if she has responded to this at all and ifschuyler does respond and flares again off prednisone, we may consider using Plaquenil empirically in her or if we are able to obtain a diagnosis prior to that, then we obviously address therapy towards that diagnosis. 4. Will see Elyse again in late January or sooner if needed. 5. Elyse did mention wanting to perhaps establish herself with another primary care physician and recommended a few in [place] as well as Dr. Carreno here in [place]. Myositis panel pending. CK minimally elevated at 224. Electronically Signed by Amador Arango MD 01/14/2010 17:40 Amador Arango MD - Amador Arango MD - Job ID: SM Doc ID: [id number] Ext Doc ID: [id number] cc: documented in this encounter Procedure Notes * Inpatient, Physician - 02/09/2010 1428 EDTAssociated Order(s): ORDERS - SCANNED documented in this encounter Plan of Treatment Not on file documented as of this encounter Procedures Procedure Name Priority Date/Time Associated Diagnosis Comments ORDERS - SCANNED 02/09/2010 14:2 8 EDT CHEST PA AND LATERAL 01/08/2010 12:57 EDT documented in this encounter Results * ORDERS - SCANNED (02/09/2010 14:28 EDT) 02/09/2010 14:2 8 EDT Narrative 02/09/2010 14:32 EDT Ordered by an unspecified provider. Transcriptions Inpatient, Physician - 02/09/2010 14:28 EDT Physician Inpatient MD ADMISSION ORDERABLES Roseanna l Result * CHEST PA AND LATERAL (01/08/2010 12:57 EDT) Anatomical Region Laterality Modality Other 01/08/2010 12:5 7 EDT 01/08/2010 13:28 EDT Narrative 01/08/2010 13:28 EDT CHEST PA AND LAT ??January 08, 2010 12:57:00 PM Signs and Symptoms: ??Fatigue/SOB/cough Comparison: none Findings: Two views of the chest show normal bones, soft tissues and cardiomediastinal contours. The lungs are clear, and there are no pleural abnormalities. Impression: Normal chest x-ray. No definite mediastinal or hilar adenopathy seen. Procedure Note 01/08/2010 CHEST PA AND LAT January 08, 2010 12:57:00 PM Signs and Symptoms: Fatigue/SOB/cough Comparison: none Findings: Two views of the chest show normal bones, soft tissues and cardiomediastinal contours. The lungs are clear, and there are no pleural abnormalities. Impression: Normal chest x-ray. No definite mediastinal or hilar adenopathy seen. Amador H Conchita [facility] DIAGNOSTIC IMAGING ORDERA BLES Final Result documented in this encounter Visit Diagnoses Not on filedocumented in this encounter Care Teams Process Planner Relationship Specialty Start Date End Date Marivel Ricks MD [address] [address] PCP - General 09/30/09 documented as of this encounter
--- OUTSIDE RECORDS SUMMARY | 2024-08-02 00:27 | XMS_ITS | Encounter Summary ---
Author Organization [facility] Address [address] [place] [address] Care Team Providers Care Antique Clock Repairer Name Role Phone Marivel Ricks MD Primary Care Provider [phone] Encounter Details Date Type Department Care Team (Late st Contact Info) Description 08/23/2007 Results Only [facility] - [facility] [address] [place] [address] Unknown, Provider, Social History Tobacco Use Types [...] Procedure Name Priority Date/Time Associated Diagnosis Comments RUBELLA IGG ANTIBODY Routine 08/23/2007 11:13 EST HEPATITIS B SURFACE ANTIGEN Routine 08/23/2007 11:13 EST SYPHILIS SERO (RPR) Routine 08/23/2007 1 1:13 EST HIV 1/2 ANTIGEN AND ANTIBODY, 4TH GENERATION Routine 08/23/2007 11:13 EST documented in this encounter Results * RUBELLA IGG ANTIBODY (08/23/2007 11:13 EST) Rubella IgG Ab Antibody detected Assayed utilizing the DPC Immulite 2500. Values may vary with other methods. [facility] 08/23/2007 11:1 3 EST 08/23/2007 20:24 EST us Provider Unknown CHEMISTRY & BLOOD GAS ORDERA BLES Final Result Performing Organization Address [facility] Co de Phone Number [facility] [address] [place] [address] * SYPHILIS SERO (RPR) (08/23/2007 11:13 EST) Syphilis Sero (RPR) NONREACT. NR Dils [facility] 08/23/2007 11:1 3 EST 08/23/2007 20:24 EST us Provider Unknown IMMUNOLOGY AND SEROLOGY ORDE RABLES Final Result Performing Organization Address [facility] de Phone Number [facility] [address] [place] [address] * HIV ANTIBODY (08/23/2007 11:13 EST) HIV 1/2 Antibody NONREACT. NR [facility] 08/23/2007 11:1 3 EST 08/23/2007 20:24 EST us Provider Unknown IMMUNOLOGY AND SEROLOGY ORDE RABLES Final Result Performing Organization Address [facility] de Phone Number [facility] [address] [place] [address] * HEPATITIS B SURFACE ANTIGEN (08/23/2007 11:13 EST) Hepatitis B Surface Ag Neg [facility] 08/23/2007 11:1 3 EST 08/23/2007 20:24 EST us Provider Unknown CHEMISTRY & BLOOD GAS ORDERA BLES Final Result Performing Organization Address [facility] Co de Phone Number [facility] [address] [place] [address] documented in this encounter Visit Diagnoses Not on filedocumented in this encounter Care Teams Antique Clock Repairer Relationship Specialty Start Date End Date Marivel Ricks MD [address] [address] PCP - General 09/30/09 documented as of this encounter
--- OUTSIDE RECORDS SUMMARY | 2024-08-02 00:27 | XMS_ITS | Encounter Summary ---
Author Organization [facility] Address [address] [place] [address] Care Team Providers Care Crinkling Machine Operator Name Role Phone Unavailable Primary Care Provider Unavailabl e Encounter Details Date Type Department Care Team (Late st Contact Info) Description 01/02/2009 Orders Only [facility] Adult Primary Care - [address] [address] Unknown, Provider, Social History Tobacco Use Types [...] Procedure Name Priority Date/Time Associated Diagnosis Comments MARY TITER Routine 01/02/2009 11:29 EDT RHEUMATOID FACTOR Routine 01/02/2009 11: 29 EDT ANTI NUCLEAR AB (MARY), IFA Routine 01/02/2009 11:29 EDT documented in this encounter Results * MARY TITER (01/02/2009 11:29 EDT) MARY Titer 40 0 - 40 [facility] Comment:Speckled pattern 01/02/2009 11:2 9 EDT 01/02/2009 21:19 EDT us Provider Unknown IMMUNOLOGY AND SEROLOGY ORDE RABLES Final Result Performing Organization Address City/State/[facility] Co de Phone Number [facility] [address] [place] [address] * ANTI NUCLEAR ANTIBODY (01/02/2009 11:29 EDT) Anti Nuclear Ab Positive at 40 dils, titer to follow. 0 - 40 Dils [facility] Blood specimen (specimen) 01/02/2009 11:29 EDT 01/02/2009 21:19 EDT us Provider Unknown IMMUNOLOGY AND SEROLOGY ORDE RABLES Final Result Performing Organization Address [facility] Co de Phone Number [facility] [address] [place] [address] * RHEUMATOID FACTOR (01/02/2009 11:29 EDT) Pathologist [facility] Rheumatoid Factor <20 <20 IU/ml [facility] Blood specimen (specimen) 01/02/2009 11:29 EDT 01/02/2009 21:19 EDT us Provider Unknown CHEMISTRY & BLOOD GAS ORDERA BLES Final Result Performing Organization Address [facility] Co de Phone Number [facility] [address] [place] [address] documented in this encounter Visit Diagnoses Not on filedocumented in this encounter
--- OUTSIDE RECORDS SUMMARY | 2024-08-02 00:27 | XMS_ITS | Encounter Summary ---
Author Organization [facility] Address [address] [place] [address] Care Team Providers Care Negative Turner Name Role Phone Marivel Ricks MD Primary Care Provider [phone] Encounter Details Date Type Department Care Team (Late st Contact Info) Description 10/24/2019 Results Only [facility] - [place] [address] [place], [place] [id number] Luis Fraser, ALEJANDRA [address] [id number] Social History Tobacco Use Types Packs/Day Years [...] Procedure Name Priority Date/Time Associated Diagnosis Comments RHEUMATOID SCREEN/TITRE Routine 10/24/2019 13:54 EST SED RATE Routine 10/24/2019 13:54 EST ANTI NUCLEAR AB (MARY), IFA Routine 10/24/2019 13:54 EST TSH Routine 10/24/2019 13:54 EST documented in this encounter Results * ANTI NUCLEAR AB (MARY), IFA (10/24/2019 13:54 EST) MARY Interpretation Negative Negative 2019 15:58 EST [facility] Comment: Results were obtained with the INOVA NOVA Lite HEp-2 MARY Kit by indirect immunofluorescence. Test performed or referred by The [address] [address] 10/24/2019 13:5 4 EST 10/24/2019 18:15 EST us Luis Fraser ND IMMUNOLOGY AND SEROLOGY ORDERABL ES Final Result Performing Organization Address [facility] [address]/ZIP Co de Phone Number [facility] * TSH (10/24/2019 13:54 EST) [facility] THYROID STIM HORMONE [facility] 1.75 0.46 - 4.68 uIU/ml 10/24/2019 19:18 EST [facility] Comment: The results of this assay can be falsely lowered due to the consumption of Biotin. 10/24/2019 13:5 4 EST 10/24/2019 18:15 EST us Luis Fraser ND CHEMISTRY & BLOOD GAS ORDERABLES Final Result Performing Organization Address [facility] [address] [facility] Co de Phone Number [facility] * SED. RATE:WESTERGREN (10/24/2019 13:54 EST) [facility] SED RATE - [facility] 6 1 - 20 mm/hr 10/24/2019 18:44 EST [facility] 10/24/2019 13:5 4 EST 10/24/2019 18:15 EST Luis Fraser ND HEMATOLOGY & PF4 ORDERABLES Roseanna l Result Performing Organization Address [facility] [address]/ZIP Co de Phone Number [facility] * RHEUMATOID SCREEN/TITRE - [facility] (10/24/2019 13:54 EST) [facility] RHEUMATOID FACTOR SCREEN - [facility] NEG NEG 10/24/2019 18:39 EST [facility] 10/24/2019 13:5 4 EST 10/24/2019 18:15 EST Luis Fraser ALEJANDRA CHEMISTRY & BLOOD GAS ORDERABLES Final Result Performing Organization Address City/State/[facility] Co de Phone Number [facility] documented in this encounter Visit Diagnoses Not on filedocumented in this encounter Care Teams Negative Turner Relationship Specialty Start Date [place] [address] PCP - General 09/30/09 documented as of this encounter
--- OUTSIDE RECORDS SUMMARY | 2024-08-02 00:27 | XMS_ITS | Encounter Summary ---
Author Organization [facility] Address [address] [place] [address] Care Team Providers Care Fuller Brush Worker Name Role Phone Unavailable Primary Care Provider Unavailabl e Encounter Details Date Type Department Care Team (Late st Contact Info) Description 05/16/2002 8:29 EDT Hospital Encounter [facility] - Other [address] [place] [address] Roopa Hand MD [address] [place] [address] Unknown, ProviderMD Social History Tobacco Use Types Packs/Day Years [...] Procedure Name Priority Date/Time Associated Diagnosis Comments KNEE 3 VIEWS Routine 06/20/2002 12:19 EST KNEE 1 OR 2 VIEWS Routine 06/20/2002 12: 19 EST CYTOPATHOLOGY Routine 05/16/2002 0:00 EDT documented in this encounter Results * KNEE 1 OR 2 VIEWS (06/20/2002 12:19 EST) Anatomical Region Laterality Modality Other 06/20/2002 12:1 9 EST Impressions 05/18/2009 4:48 EDT IMPRESSION: Degenerative changes of the left knee with anterior cruciate ligament repair. dw Narrative 05/18/2009 4:48 EDT KN PAIN FOR YRS SINCE ACL SURG. R/O DJD, BONY ABN. LEFT KNEE; RIGHT KNEE: 06/20/02 PA and sunrise views of both knees as well as lateral view of the left knee are compared to 03/02/00. Again noted are interference screws within the left distal femur and proximal tibia consistent with ACL reconstruction. There is no evidence of hardware failure or complication. Mild trochlear proliferative changes and squaring of the femoral condyles are noted in the left knee, consistent with osteoarthritis. Joint spacing and alignment are maintained bilaterally. There may be mild calcification in the lateral left patellar retinaculum. Patellofemoral alignment is anatomic. Procedure Note Yoel Humphrey, PT - 05/18/2009 KN PAIN FOR YRS SINCE ACL SURG. R/O DJD, BONY ABN. LEFT KNEE; RIGHT KNEE: 06/20/02 PA and sunrise views of both knees as well as lateral view of the left knee are compared to 03/02/00. Again noted are interference screws within the left distal femur and proximal tibia consistent with ACL reconstruction. There is no evidence of hardware failure or complication. Mild trochlear proliferative changes and squaring of the femoral condyles are noted in the left knee, consistent with osteoarthritis. Joint spacing and alignment are maintained bilaterally. There may be mild calcification in the lateral left patellar retinaculum. Patellofemoral alignment is anatomic. IMPRESSION IMPRESSION: Degenerative changes of the left knee with anterior cruciate ligament repair. dw Kalia Mcwilliams MD [facility] [place] DIAGNOSTIC IMAGING ORDER RADHA Final Result * KNEE 3 VIEWS (06/20/2002 12:19 EST) Anatomical Region Laterality Modality Other 06/20/2002 12:1 9 EST Narrative 05/18/2009 4:48 EDT KN PAIN FOR YRS SINCE ACL SURG. R/O DJD, BONY ABN. Procedure Note Yoel Humphrey, PT - 05/18/2009 KN PAIN FOR YRS SINCE ACL SURG. R/O DJD, BONY ABN. us Kalia Mcwilliams MD [facility]G DIAGNOSTIC IMAGING ORDER RADHA Final Result * CYTOPATHOLOGY (05/16/2002 0:00 EDT) Pathology Report: CYTOPATHOLOGY REPORT Reports generated via electronic interface contain original data; however they are lacking the format of the original report. Caution should be taken when reading/interpreti ng unformatted reports. Name: ? PRIYA LYLE ? Accession #: ? [id number] : ? 1975 (Age: 26) ??F ?Collect Date: ? 05/16/2002 Location: ? [facility] ? Receive Date: ? 05/20/2002 Provider: ?ROOPA HAND MD Copy to: ? Specimen/Source: ?ThinPrep Pap Test, Source Not Provided Last Menstrual Period: ? SPECIMEN ADEQUACY ? Satisfactory for Evaluation - transformation zone component present GENERAL CATEGORIZATION ? Negative for Intraepithelial Lesion or Malignancy ? Document reviewed and electronically signed by: ? FAITH Dumont(ASCP) ? Report Date: ??05/24/2002 13:56 End of Report [facility] 05/16/2002 05/20/2002 us Roopa Hand MD PATHOLOGY ORDERABLES Fin al Result [facility] [address] [address] documented in this encounter Visit Diagnoses Not on filedocumented in this encounter
--- OUTSIDE RECORDS SUMMARY | 2024-08-02 00:27 | XMS_ITS | Encounter Summary ---
Author Organization [facility] Address [address] [place] [address] Care Team Providers Care Shift Production Supervisor Name Role Phone Marivel Ricks MD Primary Care Provider [phone] Encounter Details Date Type Department Care Team (Late st Contact Info) Description 04/24/2007 Results Only [facility] - Maple conversion [address] [place] [address] Lisandro Bardales MD [address] [place] [id number] Social History Tobacco Use Types Packs/Day Years [...] Priority Date/Time Associated Diagnosis Comments CYTOPATHOLOGY Routine 04/24/2007 0:00 EDT documented in this encounter Results * CYTOPATHOLOGY (04/24/2007 0:00 EDT) Pathology Report: CYTOPATHOLOGY REPORT Reports generated via electronic interface contain original data; however they are lacking the format of the original report. Caution should be taken when reading/interpreti ng unformatted reports. Name: ? PRIYA LYLE ? Accession #: ? [id number] : ? 1975 (Age: 31) ??F ?Collect Date: ? 04/24/2007 Location: ? [facility] ? Receive Date: ? 04/26/2007 Provider: ?LISANDRO BARDALES MD Copy to: ? Specimen/Source: ?ThinPrep Pap Test, Source Not Provided, processed on [employer] ThinPrep Imaging System, with manual evaluation Last Menstrual Period: ? 04/02/07 Other: ? HPVA - HPV testing requested if ASC-US on the current ThinPrep Pap test. ? SPECIMEN ADEQUACY ? Satisfactory for Evaluation - transformation zone component present GENERAL CATEGORIZATION ? Negative for Intraepithelial Lesion or Malignancy ? Document reviewed and electronically signed by: ? Maira Lozada, FAITH(ASCP)(IAC) ? Report Date: ??05/02/2007 10:22 End of Report [facility] 04/24/2007 04/26/2007 us Lisandro Bardales MD PATHOLOGY ORDERABLES Fin al Result [facility] [address] [place] [address] documented in this encounter Visit Diagnoses Not on filedocumented in this encounter Care Teams Shift Production Supervisor Relationship Specialty Start Date End Date Marivel Ricks MD [address] [address] PCP - General 09/30/09 documented as of this encounter
--- OUTSIDE RECORDS SUMMARY | 2024-08-02 00:27 | XMS_ITS | Encounter Summary ---
Author Organization [facility] Address [address] [place] [address] Care Team Providers Care Manager Community Development Name Role Phone Marivel Ricks MD Primary Care Provider [phone] Encounter Details Date Type Department Care Team (Late st Contact Info) Description 06/12/2014 Results Only [facility] [address] [place], [place] [address] Marivel Ricks MD [address] [address] Social History Tobacco Use Types Packs/Day Years [...] Procedure Name Priority Date/Time Associated Diagnosis Comments PAP TEST- RESULT ONLY Routine 06/12/2014 0:00 EDT documented in this encounter Results * PAP TEST- RESULT ONLY (06/12/2014 0:00 EDT) Pathology Report: CYTOPATHOLOGY REPORT Reports generated via electronic interface contain original data; however they are lacking the format of the original report. Caution should be taken when reading/interpreti ng unformatted reports. Name: ? PRIYA LLYE ? Accession #: ? [id number] ? : ? 1975 (Age: 38) ??F ?Collect Date: ? 06/12/2014 ? Location: ? [facility] ? Receive Date: ? 06/16/2014 ? Provider: MARIVEL RICKS MD Copy to: ? Final Report SPECIMEN ADEQUACY ? Satisfactory for Evaluation - transformation zone component present - lack of pertinent clinical information (e.g. LMP not provided) GENERAL CATEGORIZATION ? Other, see interpretation INTERPRETATION ? Endometrial cells present in a woman equal to or greater than age 40. Negative for Intraepithelial Lesion. EDUCATIONAL NOTES/RECOMMENDATI ONS ? Benign appearing endometrial cells on Pap tests are usually a normal finding in women with regular menstrual cycles, especially if the Pap test was collected during the first half of the menstrual cycle. There is data showing that endometrial cells on Pap tests may be associated with endometrial/uterin e abnormalities in post menopausal women or in perimenopausal women with abnormal bleeding. There is limited data on the significance of benign endometrial cells in post menopausal women on HRT. ??Clinical correlation is recommended. Note: ??The Pap test is not an accurate test for the screening of endometrial lesions and should not be used as a follow up in patients with clinical suspicion of endometrial pathology. Specimen/Source: ??Pap Test, Cervix, ThinPrep Imaging System with manual evaluation Document reviewed and electronically signed by: ? FAITH Hartmann(ASCP) ? Report ??Date: 06/18/2014 15:50 HPV with Pap Test ? Date Ordered: ? 06/18/2014 ? Status: ?? Signed Out ?Date Complete: ? 06/20/2014 ? By: ??System Interface ? Date Reported: ? 06/20/2014 ? Interpretation RESULT: Negative for HPV. No E6 or E7 mRNA is detected from HPV types 16,18,31,33,35, 39,45,51,52,56,58, 59,66, and 68 by senior applications engineer mediated amplification. Comments Document reviewed and electronically signed by: ? System Interface ? Report date: 06/20/2014 By the signature above, the attending physician certifies that he/she has personally conducted a gross and/or microscopic examination of the described specimens and rendered or confirmed the above diagnosis. End of Report [facility] 06/12/2014 06/16/2014 us Marivel Ricks MD PATHOLOGY ORDERABLES Final R esult Performing Organization Address City/State/[facility] Co de Phone Number [facility] [address] [place] [address] documented in this encounter Visit Diagnoses Not on filedocumented in this encounter Care Teams Manager Community Development Relationship Specialty Start Date End Date Marivel Ricks MD [facility] [address] [address] PCP - General 09/30/09 documented as of this encounter
--- OUTSIDE RECORDS SUMMARY | 2024-08-02 00:27 | XMS_ITS | Encounter Summary ---
Author Organization [facility] Address [address] [place] [address] Care Team Providers Care Nut Picker Name Role Phone Unavailable Primary Care Provider Unavailabl e Encounter Details Date Type Department Care Team (Late st Contact Info) Description 09/15/2000 15:09 EST Hospital Encounter [facility] - Other [address] [place] [address] Federico Dickson MD [address] [place] [address] Unknown, Provider, Discharge Disposition: Auto Discharge Social [...] Priority Date/Time Associated Diagnosis Comments CYTOPATHOLOGY Routine 09/15/2000 0:00 EST documented in this encounter Results * CYTOPATHOLOGY (09/15/2000 0:00 EST) Pathology Report: CYTOPATHOLOGY REPORT Reports generated via electronic interface contain original data; however they are lacking the format of the original report. Caution should be taken when reading/interpreti ng unformatted reports. Name: ? VALDOPRIYA ? Accession #: ? [id number] : ? 1975 (Age: 24) ??F ?Collect Date: ? 09/15/2000 Location: ? [facility] ? Receive Date: ? 09/19/2000 Provider: ?FEDERICO DICKSON MD Copy to: ? Specimen/Source: ?ThinPrep Pap Test, Vagina/Endocervix Last Menstrual Period: ? 09/01/00 Hormonal/Contracep tive Status: ? Orthotricyclen ? SPECIMEN ADEQUACY ? Satisfactory for evaluation. GENERAL CATEGORIZATION ? Within Normal Limits ? Document reviewed and electronically signed by: ? MARK Jorgensen(ASCP) ? Report Date: ??09/21/2000 13:08 End of Report [facility] 09/15/2000 09/19/2000 us Federico Dickson MD PATHOLOGY ORDERABLES Fi nal Result [facility] [address] [place] [address] documented in this encounter Visit Diagnoses Not on filedocumented in this encounter
--- OUTSIDE RECORDS SUMMARY | 2024-08-02 00:27 | XMS_ITS | Encounter Summary ---
Author Organization [facility] Address [address] [place] [address] Care Team Providers Care Plastic Molding Operator Name Role Phone Unavailable Primary Care Provider Unavailabl e Encounter Details Date Type Department Care Team (Late st Contact Info) Description 11/08/2005 8:06 EST Hospital Encounter [facility] - Maple conversion [address] [place] [address] Deb Cisneros MD [address] [place] [address] [address] [place] [id number] Social History Tobacco Use Types Packs/Day Years [...] Procedure Name Priority Date/Time Associated Diagnosis Comments HPV DETECTION, HIGH RISK TYPES Routine 06/25/2009 18:31 EST CYTOPATHOLOGY Routine 06/25/2009 0:00 EST CYTOPATHOLOGY Routine 04/29/2008 0:00 EDT documented in this encounter Results * HUMAN PAPILLOMA VIRUS DNA TEST (06/25/2009 18:31 EST) Specimen Description Cervix, ThinPrep vial [facility] Result Negative for HPV types 16, 18, 31, 33, 35, 39, 45, 51, 52, 56, 58, 59, and 68. [facility] Report Status Final 07/09/2009 [facility] 06/25/2009 18:3 1 EST 07/07/2009 12:27 EST us Marivel Ricks MD MICROBIOLOGY - GENERAL ORDER RADHA Final Result [facility] [address] [place] [address] * CYTOPATHOLOGY (06/25/2009 0:00 EST) Pathology Report: CYTOPATHOLOGY REPORT ? Reports generated via electronic interface contain original data; ? however they are lacking the format of the original report. ? Caution should be taken when reading/interpreti ng unformatted reports. ? Name: ? PRIYA LYLE ? Accession #: ? [id number] ? : ? 1975 (Age: 33) ??F ?Collect Date: ? 06/25/2009 ? Location: ? [facility] ? Receive Date: ? 06/29/2009 ? Provider: ?MARIVEL VOLANSKY MD ? Copy to: ? Specimen/Source: ?Pap Test, Cervix, ThinPrep Imaging System with manual ?? evaluation ? Last Menstrual Period: ? Other: ? HPVDX - HPV testing requested regardless of diagnosis on current ThinPrep Pap ?? test. ? SPECIMEN ADEQUACY ? Satisfactory for Evaluation ? - transformation zone component present ? GENERAL CATEGORIZATION ? Negative for Intraepithelial Lesion or Malignancy ? Document reviewed and electronically signed by: ? Karie Leija, SCT(ASCP) ? Report Date: ??07/06/2009 12:44 ? End of Report ? [facility] 06/25/2009 06/29/2009 us Marivel Ricks MD PATHOLOGY ORDERABLES Final R esult [facility] [address] [place] [address] * CYTOPATHOLOGY (04/29/2008 0:00 EDT) Pathology Report: CYTOPATHOLOGY REPORT ? Reports generated via electronic interface contain original data; ? however they are lacking the format of the original report. ? Caution should be taken when reading/interpreti ng unformatted reports. ? Name: ? PRIYA LYLE ? Accession #: ? [id number] ? : ? 1975 (Age: 32) ??F ?Collect Date: ? 04/29/2008 ? Location: ? [facility] ? Receive Date: ? 04/30/2008 ? Provider: ?ROOPA PLOCIENNIK MD ? Copy to: ? Specimen/Source: ?ThinPrep Pap Test, Cervix/Endocervix, processed on [employer] ThinPrep Imaging System, with manual evaluation ? Last Menstrual Period: ? PP ? Menstrual/Pregnanc y Status: ? Post ? Other: ? HPVA - HPV testing requested if ASC-US on the current ThinPrep Pap test. ? SPECIMEN ADEQUACY ? Satisfactory for Evaluation ? - transformation zone component present ? GENERAL CATEGORIZATION ? Negative for Intraepithelial Lesion or Malignancy ? Document reviewed and electronically signed by: ? Mercy Valenzuela, [place](ASCP) ? Report Date: ??05/01/2008 10:50 ? End of Report ? [facility] 04/29/2008 04/30/2008 us Roopa Mann MD PATHOLOGY ORDERABLES Fin al Result [facility] [address] [place] [address] documented in this encounter Visit Diagnoses Not on filedocumented in this encounter
--- OUTSIDE RECORDS SUMMARY | 2024-08-02 00:27 | XMS_ITS | Encounter Summary ---
Author Organization [facility] Address [address] [place] [address] Care Team Providers Care Pasting Machine Offbearer Name Role Phone Marivel Ricks MD Primary Care Provider Encounter Details Date Type Department Care Team (Latest Contact Info) Description 01/08/2010 13:06 EDT - 01/08/2010 23:59 EDT Hospital Encounter [facility] [place] [address] [place] [address] Amador Arango MD [address] [place] [phone] Discharge Disposition: Home or Self Care Social [...] Code Departure Means Destination Home or Self Jail documented in this encounter Progress Notes * Inpatient, Physician - 02/09/2010 1427 EDT documented in this encounter Plan of Treatment Not on file documented as of this encounter Visit Diagnoses Not on filedocumented in this encounter Care Teams Pasting Machine Offbearer Relationship Specialty Start Date End Date Marivel Ricks MD [address] [address] PCP - General 09/30/09 documented as of this encounter
--- OUTSIDE RECORDS SUMMARY | 2024-08-02 00:27 | XMS_ITS | Encounter Summary ---
Author Organization [facility] Address [address] [place] [address] Care Team Providers Care Press Room Supervisor Name Role Phone Marivel Ricks MD Primary Care Provider [phone] Encounter Details Date Type Department Care Team (Late st Contact Info) Description 01/08/2010 Results Only [facility] Rheumatology & Immunology - [facility] [address], [place] [address] Amador Arango MD [address] [place] [id number] Social History Tobacco Use Types Packs/Day Years [...] Diagnosis Comments SS-B (LA) ANTIBODY, IGG Routine 01/08/2010 13:26 EDT ZZHN SSA ANTIBODIES BY ANDREA Routine 01/08/2010 13:26 EDT MYOMARKER PANEL 2 Routine 01/08/2010 13: 26 EDT ALDOLASE Routine 01/08/2010 13:26 EDT SED RATE Routine 01/08/2010 13:26 EDT COMPLETE BLOOD COUNT AND DIFFERENTIAL Routine 01/08/2010 13:26 EDT RHEUMATOID FACTOR Routine 01/08/2010 13: 26 EDT ANGIOTENSIN CONVERTING ENZYME (EMMA) Routine 01/08/2010 13:26 EDT C3 COMPLEMENT Routine 01/08/2010 13:26 EDT C4 COMPLEMENT Routine 01/08/2010 13:26 EDT C REACTIVE PROTEIN Routine 01/08/2010 13 :26 EDT TSH Routine 01/08/2010 13:26 EDT LDH Routine 01/08/2010 13:26 EDT CK Routine 01/08/2010 13:26 EDT COMPREHENSIVE METABOLIC PANEL (CMP) Routine 01/08/2010 13:26 EDT URINALYSIS WITH MICROSCOPIC IF POSITIVE Routine 01/08/2010 13:25 EDT UA REFLEX Routine 01/08/2010 13:25 EDT URINE CULTURE IF POSITIVE Routine 01/08/2010 13:25 EDT documented in this encounter Results * C4 COMPLEMENT (01/08/2010 13:26 EDT) C4 Complement 18 16 - 38 mg/dl [facility] Blood specimen (specimen) 01/08/2010 13:26 EDT 01/08/2010 13:27 EDT us Amadorlaura Arango MD CHEMISTRY & BLOOD GAS ORDERAB LES Final Result [facility] [address] [place] [address] * C3 COMPLEMENT (01/08/2010 13:26 EDT) C3 Complement 109 79 - 152 mg/dl [facility] Blood specimen (specimen) 01/08/2010 13:26 EDT 01/08/2010 13:27 EDT Amadorlaura Arango MD CHEMISTRY & BLOOD GAS ORDERAB LES Final Result Performing Organization Address [facility] de Phone Number [facility] [address] [place] [address] * ALDOLASE (01/08/2010 13:26 EDT) Aldolase, S 3.0Reference range: <7.7 Unit: U/L Performed by: [facility] [employer] [facility] [place], [address] [facility], [place], ?? [place] [address], Magistrate: Yee Eli, Ph.D. [facility] Blood specimen (specimen) 01/08/2010 13:26 EDT 01/08/2010 13:27 EDT Amadorlaura Arango MD CHEMISTRY & BLOOD GAS ORDERAB LES Final Result Performing Organization Address [facility] de Phone Number [facility] [address] [place] [address] * SS-B/LA ANTIBODY, IGG, SERUM (01/08/2010 13:26 EDT) SS B/La Ab, IgG, S <0.2Unit: U -- REFERENCE VALUE -- ? <1.0 (Negative) ? > or =1.0 (Positive) ? Performed by: [employer] [place], [address], ? [place] [address], Magistrate: Yee Eli, Ph.D. ? [facility] specimen (specimen) 01/08/2010 13:26 EDT 01/08/2010 13:27 EDT us Amador Arango MD IMMUNOLOGY AND SEROLOGY ORDER RADHA Final Result [facility] [address] [place] [address] * SS-A/RO ANTIBODY, IGG, SERUM (01/08/2010 13:26 EDT) SS A/Ro Ab, IgG, S <0.2Unit: U -- REFERENCE VALUE -- ? <1.0 (Negative) ? > or =1.0 (Positive) ? Performed by: [employer], [address], ? [place] [address], Magistrate: Yee Eli, Ph.D. ? [facility] Blood specimen (specimen) 01/08/2010 13:26 EDT 01/08/2010 13:27 EDT Amadorlaura Arango MD IMMUNOLOGY AND SEROLOGY ORDER RADHA Final Result Performing Organization Address [facility] de Phone Number [facility] [address] [place] [address] * SED. RATE:WESTERGREN (01/08/2010 13:26 EDT) Pathologist [facility] Sed. Rate Westergren 7 0 - 20 mm/hr [facility] Blood specimen (specimen) 01/08/2010 13:26 EDT 01/08/2010 13:27 EDT Amadorlaura Arango MD HEMATOLOGY & PF4 ORDERABLES F inal Result Performing Organization Address [facility] de Phone Number [facility] [address] [place] [address] * HEMAGRAM AND DIFFERENTIAL (01/08/2010 13:26 EDT) WBC 6.72 4.0 - 12.4 K/cmm [facility] RBC 4.40 3.86 - 5.04 M/cmm [facility] Hemoglobin 13.6 11.6 - 15.2 gm/dl [facility] HCT 39.8 34.9 - 44.4 % [facility] MCV 90 81 - 98 fl [facility] MCH 31.0 26.7 - 33.3 pg [facility] MCHC 34.3 32.1 - 35.9 gm/dl [facility] PLT 173 141 - 320 K/cmm [facility] RDW-CV 13.3 11.7 - 14.6 % [facility] % Neutrophils 69.4 45.5 - 79.7 % [facility] % Lymphocytes 21.9 15.0 - 46.8 % [facility] % Monocytes 6.2 1.8 - 12.0 % [facility] % Eosinophils 2.0 0.6 - 6.9 % [facility] % Basophils 0.5 0.2 - 1.4 % [facility] ABS Neutrophils 4.66 2.20 - 8.85 K/cmm [facility] ABS Lymphs 1.47 1.09 - 3.30 K/cmm [facility] ABS Monocytes 0.42 0.1 - 0.8 K/cmm [facility] ABS Eosinophils 0.14 0.03 - 0.61 K/cmm [facility] ABS Basophils 0.03 0.01 - 0.11 K/cmm [facility] Type of Diff: Automated [facility] Blood specimen (specimen) 01/08/2010 13:26 EDT 01/08/2010 13:27 EDT us Amadorlaura Arango MD PACKAGES & DNA PROBE ORDERABL ES Final Result Performing Organization Address [facility] Co de Phone Number [facility] [address] [place] [address] * TSH (01/08/2010 13:26 EDT) Pathologist [facility] TSH 1.63 0.35 - 5.00 uIU/ml [facility] Blood specimen (specimen) 01/08/2010 13:26 EDT 01/08/2010 13:27 EDT us Amadorlaura Arango MD CHEMISTRY & BLOOD GAS ORDERAB LES Final Result Performing Organization Address City/[facility] Co de Phone Number [facility] [address] [place] [address] * RHEUMATOID FACTOR (01/08/2010 13:26 EDT) Rheumatoid Factor <20 <20 IU/ml [facility] Blood specimen (specimen) 01/08/2010 13:26 EDT 01/08/2010 13:27 EDT us Amadorlaura Arango MD CHEMISTRY & BLOOD GAS ORDERAB LES Final Result [facility] [address] [place] [address] * LDH (01/08/2010 13:26 EDT) LDH 471 313 - 618 U/L [facility] Blood specimen (specimen) 01/08/2010 13:26 EDT 01/08/2010 13:27 EDT us Amadorlaura Arango MD CHEMISTRY & BLOOD GAS ORDERAB LES Final Result Performing Organization Address [facility] Co de Phone Number [facility] [address] [place] [address] * (ABNORMAL) CK (01/08/2010 13:26 EDT) CK 224(H) 30 - 135 U/L [facility] Blood specimen (specimen) 01/08/2010 13:26 EDT 01/08/2010 13:27 EDT us Amadorlaura Arango MD CHEMISTRY & BLOOD GAS ORDERAB LES Final Result Performing Organization Address [facility] Co de Phone Number [facility] [address] [place] [address] * C-REACTIVE PROTEIN (01/08/2010 13:26 EDT) C-Reactive Protein <0.7 <1.0 mg/dl [facility] Blood specimen (specimen) 01/08/2010 13:26 EDT 01/08/2010 13:27 EDT us Amadorlaura Arango MD CHEMISTRY & BLOOD GAS ORDERAB LES Final Result Performing Organization Address City/[facility]/ZIP Co de Phone Number [facility] [address] [place] [address] * COMPREHENSIVE METABOLIC PANEL (01/08/2010 13:26 EDT) Pathologist [facility] Potassium 4.1 3.5 - 5.0 mEq/L [facility] Sodium 140 136 - 145 mEq/L [facility] Chloride 105 96 - 110 mEq/L [facility] CO2 25 24 - 32 mEq/L [facility] Total Alkaline Phosphatase 43 38 - 126 U/L [facility] Bilirubin, Total <0.5 0.2 - 1.3 mg/dl [facility] AST 28 15 - 46 U/L [facility] ALT 22 9 - 52 U/L [facility] Albumin 4.8 3.4 - 4.9 g/dl [facility] Total Protein 7.3 6.5 - 8.3 g/dl [facility] Creatinine 0.83 0.7 - 1.5 mg/dl [facility] GFR, Calculated >60 ml/min/1.7 3m2 [facility] BUN 19 10 - 26 mg/dl [facility] Calcium 9.3 8.5 - 10.5 mg/dl [facility] Calculated Calcium 8.9 8.5 - 10.5 mg/dl [facility] Glucose, Serum 97 70 - 100 mg/dl [facility] Fasting? No [facility] Blood specimen (specimen) 01/08/2010 13:26 EDT 01/08/2010 13:27 EDT us Amadorlaura Arango MD CHEMISTRY & BLOOD GAS ORDERAB LES Final Result Performing Organization Address City/State/[facility] Co de Phone Number [facility] [address] [place] [address] * MYOSITIS ANTIBODY PANEL PLUS (01/08/2010 13:26 EDT) Pathologist [facility] Anti Josefa 1 Ab Negative Reference range: Negative ? Negative ? <20 units ? Weak Positive ?20-39 units ? Moderate Positive ?40-80 units ? Strong Positive ?>80 units ? [facility] Anti PM/Scl 100 Ab Negative Reference range: Negative ? PM/SCL Interpretation: ? Negative ? <15 ? Weak Positive ? 15-25 ? Positive ? >25 ? [facility] NM 2 Negative Reference range: Negative [facility] [address] Negative Reference range: Negative [facility] [address] Negative Reference range: Negative [facility] EJ Negative Reference range: Negative [facility] OJ Negative Reference range: Negative [facility] KU Moderate Positive Reference range: Negative [facility] U2 snRNP Negative Reference range: Negative [facility] SRP Negative Reference range: Negative ? NM-2, PL-12, PL-7, EJ, OJ, KU, U2 SNRNP, SRP are tested by ? immunoprecipitatio n. Weak positive and positive are ? determined by band density. ? This test was developed and its performance characteristics ? validated by [employer] The FDA has determined that approval ? for these tests is not necessary. This is an analyte ? specific reagent (ASR) test. ? Testing Performed By: ??[facility] ? [id number] ? [place], [place] ??[address] ? [facility] Blood specimen (specimen) 01/08/2010 13:26 EDT 01/08/2010 13:27 EDT us Amador Arango MD IMMUNOLOGY AND SEROLOGY ORDER RADHA Final Result [facility] [address] [place] [address] * ANGIOTENSIN CONVERTING ENZYME (EMMA) (01/08/2010 13:26 EDT) Angiotensin Converting Enzyme 37Reference range: 8 to 53 Unit: U/L The use of angiotensin converting enzyme (EMMA)-inhibitin g ? antihypertensiv e drugs will cause decreased EMMA values. ? Performed or Referred by: [facility], [address] ? [place] [address], Lab Dir: Denzel Marr III, ? MD ? [facility] Blood specimen (specimen) 01/08/2010 13:26 EDT 01/08/2010 13:27 EDT us Amadorlaura Arango MD CHEMISTRY & BLOOD GAS ORDERAB LES Final Result Performing Organization Address [facility] Co de Phone Number [facility] [address] [place] [address] * UA REFLEX (01/08/2010 13:25 EDT) UA Billing Microscopic not indicated. [facility] 01/08/2010 13:2 5 EDT 01/08/2010 13:27 EDT Amadorlaura Arango MD URINALYSIS ORDERABLES Final R esult Performing Organization Address [facility] Co de Phone Number [facility] [address] [place] [address] * CULTURE IF UA POSITIVE (01/08/2010 13:25 EDT) Culture if Indicated Culture not indicated by urinalysis results. [facility] Urine specimen (specimen) 01/08/2010 13:25 EDT 01/08/2010 13:27 EDT Amadorlaura Arango MD MICROBIOLOGY - GENERAL ORDERA BLES Final Result Performing Organization Address [facility] de Phone Number [facility] [address] [place] [address] * URINALYSIS (01/08/2010 13:25 EDT) Color, UA Yellow [facility] Clarity, UA Clear [facility] Glucose, UA Neg NEG [facility] Bilirubin, UA Neg NEG [facility] Ketones, UA Neg NEG [facility] Specific [place], Urine 1.020 1.001 - 1.035 [facility] Blood, UA Neg NEG [facility] pH, UA 6.0 4.6 - 8.0 [facility] Protein, UA Neg NEG [facility] Urobilinogen, UA 0.2 0.2 - 1.0 E.U./dl [facility] Nitrite, UA Neg NEG [facility] Leuk Esterase Neg NEG [facility] Urine specimen (specimen) 01/08/2010 13:25 EDT 01/08/2010 13:27 EDT us Amadorlaura Arango MD URINALYSIS ORDERABLES Final R esult Performing Organization Address City/State/[facility] Co de Phone Number [facility] [address] [place] [address] documented in this encounter Visit Diagnoses Not on filedocumented in this encounter Care Teams Press Room Supervisor Relationship Specialty Start Date End Date Marivel Ricks MD [address] [address] PCP - General 09/30/09 documented as of this encounter
--- OUTSIDE RECORDS SUMMARY | 2024-08-02 00:27 | XMS_ITS | Encounter Summary ---
Author Organization [facility] Address [address] [place] [address] Care Team Providers Care Talent Development Analyst Name Role Phone Marivel Ricks MD Primary Care Provider [phone] Encounter Details Date Type Department Care Team (Latest Contact Info) Description 02/16/2010 10:40 EDT - 02/16/2010 23:59 EDT Hospital Encounter [facility] Neurophysiology - [facility] ([facility]) [address] [place] [address] Unknown, Provider, Jalen Centeno MD Emg, Discharge Disposition: Auto Discharge Social History Tobacco [...] encounter Procedure Notes * Inpatient, Physician - 02/16/2010 0000 EDTAssociated Order(s): ELECTROMYOGRAM - SCANNED documented in this encounter Consult Notes * Jalen Estevez MD - 02/16/2010 0000 EDT NEUROLOGICAL HEALTHCARE SERVICES CONSULTATION - 02/16/2010 PROBLEM: 1. Possible left L5 radiculopathy. 2. Normal neurological exam despite other somatic complaints. SUBJECTIVE: The patient is a 34-year-old white female referred by her communication instructor, Dr Amador Arango, for EMG and for a consultation. PAST MEDICAL HISTORY: 1. History of anxiety manifesting in the past as palpitations and vertigo. 2. Mildly positive MARY. 3. History of ACL repair in 1992. 4. History of LASIK surgery. 5. History of depression. MEDICATIONS: Multivitamins, otherwise no meds. ALLERGIES: None known. SOCIAL HISTORY: with children. She is currently a nonsmoker, having quit several years ago.She drinks 3 or 4 glasses of wine a month. REVIEW OF SYSTEMS: Notable for arthralgias in the fingers, rashes, peculiar rising sensation in thechest, anxiety, limb twitching, palpitations, shortness of breath in the past intermittent, head pain. CURRENT HISTORY: The patient first developed symptoms in her joints in the fall of 2004, beginning with achiness in the shoulder and later arthralgias symmetrically in multiple digits of both hands without any observed swelling. Symptoms apparently occurred with some associated weight gain and mildrecent depression. Approximately 2 years ago she began to notice a peculiar itching sensation in her ears. She later developed a rash, which was transient. She has been concerned that there has been swelling of her lymph glands about her neck. She has noticed a peculiar almost rising sensation in her chest and abdomen, which she has had periodically in the past. Other complaints besides the joint discomfort alreadynoted have been fatigue. She states that this problem began in early September and increased to the point where she felt that it was taxing just to sit. She has noted muscle twitching diffusely in all limbs, slightly more on the left than on the right. At times, her limbs will move at the joint with this twitching. She has also noted intermittent difficulty finding her words, burning discomfort in her limbs equally present on both sides. Buzzing sensation in her limbs. Tendency to form goose bumps in her limbs. Numbness involving the left hallux and left heel without radiating back pain. As part of her workup, she had a mildly positive MARY at 40; Lyme antibody screen, which was negative; normal B12 level at 561; normal aldolase and complement screen; normal CBC; mildly elevated CK at224; normal electrolytes; normal LFTs; unremarkable serum glucose; C-reactive protein of less than 0.7; rheumatoid factor of less than 20, sedimentation rate of 7; TSH of 1.63; angiotensin convertingenzyme and a serum of 37; anti-SS/Ro antibody titer that was negative; negative anti-Josefa antibodies,anti-PM-Scl, anti-Mi-2, anti-P0-7, anti-P0-12, anti-EJ, anti-OJ, anti-Ku, anti-U2, anti-SRP. The patient had a normal chest x-ray. OBJECTIVE: She is alert, cooperative, slightly pressured speech. There is no evidence of muscle atrophy or observable fasciculations. Speech and language skills are normal. She has good recall. Cranial nerve examination revealed a 4 mm equal round reactive pupils, extraocular movements without nystagmus. Good motor strength and sensation. Normal muscle tone, bulk and strength throughout. Deep tendon reflexes were average, symmetrically present throughout. She had downgoing plantar responses. Sensory exam revealed no impairment to pin vibration, cool light touch in the right upper or lower extremity. She had no evidence of dysmetria, dysdiadochokinesis. She had a narrow-based gait and tandem was negative. She could walk in her heels and toes. Romberg was negative. EMG and nerve conduction testing were performed. Conductions in the left arm and left leg were unremarkable except for a prolonger peroneal F latency. The median superficial peroneal and sural sensory responses were normal. Needle examination was performed in the left arm and leg and left lower thoracic muscles. There was modest reinnervation at proximal and distal L5 innervated muscle in the left leg and a single fibrillation seen in the lower lumbosacral paraspinal muscles. EMG was otherwise unremarkable. ASSESSMENT: The patient has many disparate complaints. She states that most of these symptoms improved after steroids were started. Her clinical examination was unremarkable with no evidence of increased muscle tone, asymmetrical reflexes, coordination difficulty or sensory impairment to suggest a central or peripheral nervous system disorder. Despite her complaints of frequent and widespread muscle twitching, I did not see any fasciculations. Her EMG was unremarkable for any evidence of polyneuropathy or myopathy. There was a modest reinnervation in her left leg, which may reflect an old left L5 radiculopathy. It is possible that her lefthallux numbness could be related to this radiculopathy. This patient does not have any convincing evidence of central nervous system problem based on history or clinical exam. There is no evidence of a peripheral nerve or muscle disorder other than a mildleft L5 radiculopathy. I think it is unlikely that this radiculopathy is related to postviral problem, though her other complaints could potentially had been related to a viral infection in September.Improvement over time was a bit slower than it is typically seen in postviral syndromes. As she does not have any low back pain or any weakness in her left leg, imaging of the back is certainly optional. I do not think it is necessary at this time. My final impression is that some of her complaints could be related to a postviral problem initially. I feel some of her ongoing complaints could be partially due to anxiety or over-attention to normal body sensations. I certainly do not see any compelling evidence of a neuromuscular disorder that n eeds further investigation. I reassured her and told her she should follow up on an as-needed basis, especially if she develops new or increasing neurological complaints. I will leave it to her and to her referring physician to decide whether they want to pursue an MRI of the lumbosacral spine. ADDENDUM: The patient was transiently treated with prednisone to a maximum dosage of 40 mg. She felt many of her symptoms improved on this medication. The prednisone was tapered off 2 or 3 weeks ago.Finally, she saw Dr Reuben Nichols in [place] for evaluation of some cervical occipital pain that was diagnosed as occipital neuralgia. This complaint is also improved. Electronically Signed by Jalen Estevez MD 03/10/2010 09:20 Jalen Estevez MD - Jalen Estevez MD - Job ID: SM Doc ID: [id number] Ext Doc ID: [id number] cc: MD Amador Paniagua MD documented in this encounter Plan of Treatment Not on file documented as of this encounter Procedures Procedure Name Priority Date/Time Associated Diagnosis Comments ELECTROMYOGRAM - SCANNED 04/13/2010 12:37 EDT documented in this encounter Results * ELECTROMYOGRAM - SCANNED (04/13/2010 12:37 EDT) 04/13/2010 12:3 7 EDT Narrative Procedure Note Inpatient, Physician - 02/16/2010 0:00 EDT Physician Inpatient MD PROCEDURE/MINOR SURGICAL ORDERABLES Final Result documented in this encounter Visit Diagnoses Not on filedocumented in this encounter Care Teams Talent Development Analyst Relationship Specialty Start Date End Date Marivel Ricks MD [address] [address] PCP - General 09/30/09 documented as of this encounter
--- OUTSIDE RECORDS SUMMARY | 2024-08-02 00:27 | XMS_ITS | Encounter Summary ---
Author Organization [facility] Address [address] [place] [address] Care Team Providers Care Suede Cleaner Name Role Phone Marivel Ricks MD Primary Care Provider [phone] Encounter Details Date Type Department Care Team (Late st Contact Info) Description 10/17/2005 Results Only [facility] - [facility] [address] [place] [address] Lisandro Bardales MD [address] [place] [id number] Social History Tobacco Use Types Packs/Day Years [...] Priority Date/Time Associated Diagnosis Comments CYTOPATHOLOGY Routine 10/17/2005 0:00 EST documented in this encounter Results * CYTOPATHOLOGY (10/17/2005 0:00 EST) Pathology Report: CYTOPATHOLOGY REPORT Reports generated via electronic interface contain original data; however they are lacking the format of the original report. Caution should be taken when reading/interpreti ng unformatted reports. Name: ? PRIYA LYLE ? Accession #: ? [id number] : ? 1975 (Age: 29) ??F ?Collect Date: ? 10/17/2005 Location: ? [facility] ? Receive Date: ? 10/20/2005 Provider: ?LISANDRO BARDALES MD Copy to: ? Specimen/Source: ?ThinPrep Pap Test, Cervix/Endocervix, processed on [employer] ThinPrep Imaging System, with manual evaluation Last Menstrual Period: ? 10/11/05 Other: ? HPVA - HPV testing requested if ASC-US on the current ThinPrep Pap test. ? SPECIMEN ADEQUACY ? Satisfactory for Evaluation - transformation zone component present GENERAL CATEGORIZATION ? Negative for Intraepithelial Lesion or Malignancy ? Document reviewed and electronically signed by: ? FAITH Hartmann(ASCP) ? Report Date: ??10/24/2005 14:37 End of Report [facility] 10/17/2005 10/20/2005 us Lisandro Bardales MD PATHOLOGY ORDERABLES Fin al Result [facility] [address] [place] [address] documented in this encounter Visit Diagnoses Not on filedocumented in this encounter Care Teams Suede Cleaner Relationship Specialty Start Date End Date Marivel Ricks MD [address] [address] PCP - General 09/30/09 documented as of this encounter
--- OUTSIDE RECORDS SUMMARY | 2024-08-02 00:27 | XMS_ITS | Encounter Summary ---
Author Organization [facility] Address [address] [place] [address] Care Team Providers Care Mail Caller Name Role Phone Marivel Ricks MD Primary Care Provider [phone] Encounter Details Date Type Department Care Team (Late st Contact Info) Description 10/31/2007 Before PRISM Converted Visit (Maple) [facility] - Maple conversion [address] [place] [address] Syed Mann MD [address] [place] [address] Social History Tobacco Use Types Packs/Day Years [...] Procedure Name Priority Date/Time Associated Diagnosis Comments [facility] ROUTINE 10/31/2007 15:37 EDT documented in this encounter Results * [facility] ROUTINE (10/31/2007 15:37 EDT) Anatomical Region Laterality Modality Other 10/31/2007 15:3 7 EDT Narrative 02/01/2009 12:27 EDT ROUTINE,[id number]/NO RISK SCREENING Please refer to the separate [facility] report. ??Contact Maternal Medicine. Procedure Note Noelle Devries MD - 02/01/2009 ROUTINE,[id number]/NO RISK SCREENING Please refer to the separate [facility] report. Contact Maternal Medicine. Syed Mann MD [facility] ORDERABLES Fi nal Result documented in this encounter Visit Diagnoses Not on filedocumented in this encounter Care Teams Mail Caller Relationship Specialty Start Date End Date Marivel Ricks MD [address] [address] PCP - General 09/30/09 documented as of this encounter
--- OUTSIDE RECORDS SUMMARY | 2024-08-02 00:27 | XMS_ITS | Encounter Summary ---
Author Organization [facility] Address [address] [place] [address] Care Team Providers Care Flooring Sales Manager Name Role Phone Marivel Ricks MD Primary Care Provider [phone] Encounter Details Date Type Department Care Team (Late st Contact Info) Description 07/02/2016 Historical Results Only [facility] Radiology Results [address] [place], [place] [address] Yu Resendez PA-C [address] [facility] [address] [place], [place] [id number] Social History Tobacco Use Types Packs/Day Years [...] Procedure Name Priority Date/Time Associated Diagnosis Comments XR ABDOMEN 2 VIEWS 07/02/2016 14 :26 EST documented in this encounter Results * XR ABDOMEN 2 VIEWS (07/02/2016 14:26 EST) Anatomical Region Laterality Modality Body Other 07/02/2016 14:2 6 EST Narrative 07/02/2016 14:26 EST ? EXAM: RADIOLOGY EXPRESS CARE/EXP CARE XR ??EX. D/ (1411) ? CLINICAL INFORMATION: ? K59.01 HX OF IBS, HAVING MILD GENERALIZED ABDOMEN DISCOMFORT ? EXAM: ? XR Abdomen Complete, 2 or More Views. ? CLINICAL HISTORY: ? 40 years old, female; K59.01 History of ibs, having mild ? generalized abdomen discomfort ? TECHNIQUE: ? Frontal view of the abdomen/pelvis with upright view of the ? abdomen. ? COMPARISON: ? No relevant prior studies available. ? FINDINGS: ? Free air: ??None. ? Gastrointestinal tract: ??There is scattered gas and stool in the ? colon. ??There is gas within nondilated small bowel. ? Bones/joints: ??No acute findings. ? IMPRESSION: ? No acute findings. ? REPORT SIGNED IN OTHER VENDOR SYSTEM 07/02/2016 ?Reported By: Girma Patterson MD ? CC: ? Transcribed Date/Time: 07/02/2016 (4016) ? Museum Or Zoo Director: ? Printed Date/Time: 02/01/2019 (5220) ? PAGE 1 ? Signed Report ? Procedure Note Girma Patterson MD - 10/04/2019 EXAM: RADIOLOGY EXPRESS CARE/EXP CARE XR EX. D/ (1411) CLINICAL INFORMATION: K59.01 HX OF IBS, HAVING MILD GENERALIZED ABDOMEN DISCOMFORT EXAM: XR Abdomen Complete, 2 or More Views. CLINICAL HISTORY: 40 years old, female; K59.01 History of ibs, having mild generalized abdomen discomfort TECHNIQUE: Frontal view of the abdomen/pelvis with upright view of the abdomen. COMPARISON: No relevant prior studies available. FINDINGS: Free air: None. Gastrointestinal tract: There is scattered gas and stool in the colon. There is gas within nondilated small bowel. Bones/joints: No acute findings. IMPRESSION: No acute findings. REPORT SIGNED IN OTHER VENDOR SYSTEM 07/02/2016 Reported By: Girma Patterson MD CC: Transcribed Date/Time: 07/02/2016 (1426) Museum Or Zoo Director: Printed Date/Time: 02/01/2019 (5038) PAGE 1 Signed Report us Yu Resendez PA-C [facility] ORDERA BLES Final Result documented in this encounter Visit Diagnoses Not on filedocumented in this encounter Care Teams Flooring Sales Manager Relationship Specialty Start Date End Date Marivel Ricks MD [facility] [address] [address] PCP - General 09/30/09 documented as of this encounter
--- OUTSIDE RECORDS SUMMARY | 2024-08-02 00:27 | XMS_ITS | Encounter Summary ---
Author Organization [facility] Address [address] [place] [address] Care Team Providers Care Braid Pattern Setter Name Role Phone Marivel Ricks MD Primary Care Provider [phone] Encounter Details Date Type Department Care Team (Latest Contact Info) Description 01/28/2018 14:17 EDT - 01/28/2018 23:59 EDT Hospital Encounter [facility] [address] [place] [address] Unknown, Provider, MD Discharge Disposition: Home or Self Care Social [...] Code Departure Means Destination Home or Self Intermediate documented in this encounter Plan of Treatment Not on file documented as of this encounter Visit Diagnoses Not on filedocumented in this encounter Care Teams Braid Pattern Setter Relationship Specialty Start Date End Date Marivel Ricks MD [address] [address] PCP - General 09/30/09 documented as of this encounter
--- OUTSIDE RECORDS SUMMARY | 2024-08-02 00:27 | XMS_ITS | Encounter Summary ---
Author Organization [facility] Address [address] [place] [address] Care Team Providers Care Reflexologist Name Role Phone Marivel Ricks MD Primary Care Provider [phone] Encounter Details Date Type Department Care Team (Late st Contact Info) Description 01/28/2018 Results Only Imaging [facility] [phone] Unknown, Provider, Social History Tobacco Use Types Packs/Day Years Used Date Smoking Tobacco: Never Assessed Comments Unknown Sex and Gender Information Value Date Recorded Sex Assigned at Not on file Legal Sex Female 17:57 EST Gender Identity Not on file Sexual Orientation Not on file documented as of this encounter Plan of Treatment Pending Results Name Type Priority Associated Diagnoses Date /Time OUTSIDE IMAGES - PLAIN FILM MSK Imaging 01/28/2018 16:57 EDT documented as of this encounter Visit Diagnoses Not on filedocumented in this encounter Care Teams Reflexologist Relationship Specialty Start Date End Date Marivel Ricks MD [facility] [address] [address] PCP - General 09/30/09 documented as of this encounter
--- OUTSIDE RECORDS SUMMARY | 2024-08-02 00:27 | XMS_ITS | Encounter Summary ---
Author Organization [facility] Address [address] [place] [address] Care Team Providers Care Paper Rewinder Name Role Phone Unavailable Primary Care Provider Unavailabl e Encounter Details Date Type Department Care Team (Late st Contact Info) Description 10/21/2005 12:27 EST Hospital Encounter [facility] [address] [place] [address] Deb Cisneros MD [address] [place] [address] [address] [place] [phone] Discharge Disposition: Auto Discharge Social History Tobacco [...] Procedure Name Priority Date/Time Associated Diagnosis Comments TSH Routine 10/21/2005 14:43 EST documented in this encounter Results * TSH (10/21/2005 14:43 EST) TSH 1.20 0.35 - 5.50 uIU/ml [facility] 10/21/2005 14:4 3 EST 10/21/2005 14:45 EST us Deb Cisneros MD CHEMISTRY & BLOOD GAS OR DERABLES Final Result [facility] [address] [place] [address] documented in this encounter Visit Diagnoses Not on filedocumented in this encounter
--- OUTSIDE RECORDS SUMMARY | 2024-08-02 00:27 | XMS_ITS | Encounter Summary ---
Author Organization [facility] Address [address] [place] [address] Care Team Providers Care Center Aisle Cashier Name Role Phone Marivel Ricks MD Primary Care Provider [phone] Encounter Details Date Type Department Care Team (Late st Contact Info) Description 01/12/2005 Results Only [facility] - Maple conversion [address] [place] [address] Unknown, Provider, Social History Tobacco Use Types [...] Procedure Name Priority Date/Time Associated Diagnosis Comments TEST ADDED BY PHONE Routine 01/12/2005 1 1:14 EDT LYME ANTIBODY Routine 01/12/2005 11:14 EDT ZZLYME IMMUNOBLOT CONFIRMATION Routine 01/12/2005 11:14 EDT MARY TITER Routine 01/12/2005 11:14 EDT RHEUMATOID FACTOR Routine 01/12/2005 11: 14 EDT ANTI NUCLEAR AB (MARY), IFA Routine 01/12/2005 11:14 EDT documented in this encounter Results * RHEUMATOID FACTOR (01/12/2005 11:14 EDT) Pathologist [facility] Rheumatoid Factor <20 <20 IU/ml [facility] 01/12/2005 11:1 4 EDT 01/12/2005 21:10 EDT us Provider Unknown MD CHEMISTRY & BLOOD GAS ORDERA BLES Final Result [facility] [address] [place] [address] * LYME ANTIBODY WESTERN BLOT (01/12/2005 11:14 EDT) Pathologist [facility] IgG 1Unit: band(Note) -- EXPECTED VALUES -- ? (Ref Range) <5 ? [facility] IgM Western Blot 0Unit: band(Note) -- EXPECTED VALUES -- ? (Ref Range) <2 ? [facility] Interpretation (Note) Nonconfirmatory : ? Specific serologic response to B. burgdorferi is not ? detected. ??Cannot rule out early infection during which low ? or undetectable antibody levels to Borrelia burgdorferi may ? be present. ? TEST PERFORMED OR REFERRED BY [facility] ? [address] ? [place] [address] ? Tetryl Nitrator Operator: ? Zi Luque M.D. ? [facility] Bands Detected 41 Unit: kDa [facility] IgM Bands Detected None Detected Unit: kDa [facility] 01/12/2005 11:1 4 EDT 01/12/2005 21:10 EDT us Provider Unknown IMMUNOLOGY AND SEROLOGY SHWETA THOMPSON Final Result [facility] [address] [place] [address] * (ABNORMAL) LYME ANTIBODY (01/12/2005 11:14 EDT) Lyme Ab 0.93(A) NEGAT [facility] Comment: Results of 0.91 - 1.09 are equivocal. Since antibodies to other spirochetes including T. Pallidium may crossreact giving false positive results, a Western Blot assay is useful ??for confirmation and is available through our reference laboratory. The specimen will be saved for 30 days. ??Please call Customer Service if a Western Blot assay is desired. 01/12/2005 11:1 4 EDT 01/12/2005 21:10 EDT us Provider Unknown MD IMMUNOLOGY AND SEROLOGY ORDE RABLES Final Result Performing Organization Address [facility] de Phone Number [facility] [address] [place] [address] * (ABNORMAL) MARY TITER (01/12/2005 11:14 EDT) MARY Titer 160(H) 0 - 40 dils [facility] Comment:Speckled pattern 01/12/2005 11:1 4 EDT 01/12/2005 21:10 EDT us Provider Unknown IMMUNOLOGY AND SEROLOGY ORDE RABLES Final Result Performing Organization Address [facility] de Phone Number [facility] [address] [place] [address] * ANTI NUCLEAR ANTIBODY (01/12/2005 11:14 EDT) Anti Nuclear Ab Positive at 40 dils, titer to follow. 0 - 40 Dils [facility] 01/12/2005 11:1 4 EDT 01/12/2005 21:10 EDT us Provider Unknown MD IMMUNOLOGY AND SEROLOGY ORDE RABLES Final Result Performing Organization Address [facility] de Phone Number [facility] [address] [place] [address] * TEST ADDED BY PHONE (01/12/2005 11:14 EDT) Tests to be added LYWB [facility] 01/12/2005 11:1 4 EDT 01/12/2005 21:10 EDT us Provider Unknown MD IMMUNOLOGY AND SEROLOGY ORDE RABLES Final Result [facility] [address] [place] [address] documented in this encounter Visit Diagnoses Not on filedocumented in this encounter Care Teams Center Aisle Cashier Relationship Specialty Start Date End Date Marivel Ricks MD [place] [phone] PCP - General 09/30/09 documented as of this encounter
--- OUTSIDE RECORDS SUMMARY | 2024-08-02 00:27 | XMS_ITS | Encounter Summary ---
Author Organization [facility] Address [address] [place] [address] Care Team Providers Care Hand Hide Stretcher Name Role Phone Marivel Ricks MD Primary Care Provider [phone] Reason for Visit * Reason Onset Date Comments Other 02/10/2010 Encounter Details Date Type Department Care Team (Late st Contact Info) Description 02/10/2010 Telephone [facility] Rheumatology & Immunology - [facility] [address] [place], [place] [address] Deidre Marin RN Other Social History Tobacco Use Types Packs/Day Years Used Date Smoking Tobacco: Never Assessed Comments Unknown Sex and Gender Information Value Date Recorded Sex Assigned at Not on file Legal Sex Female 17:57 EST Gender Identity Not on file Sexual Orientation Not on file documented as of this encounter Miscellaneous Notes * Telephone Encounter - Amador Arango - 02/10/2010 4932 EDT Just saw that Elyse is on the schedule for Monday. She is getting EMG testing and a neuro consultation on the which will be important information. I think we should move her appointment a bit further out so that we have cheryl information at hand. Please arrange this if possible. Thanks. Amador documented in this encounter Plan of Treatment Not on file documented as of this encounter Visit Diagnoses Not on filedocumented in this encounter Care Teams Hand Hide Stretcher Relationship Specialty Start Date End Date Marivel Ricks MD [address] [place] [address] PCP - General 09/30/09 documented as of this encounter
--- OUTSIDE RECORDS SUMMARY | 2024-08-02 00:27 | XMS_ITS | Encounter Summary ---
Author Organization [facility] Address [address] [place] [address] Care Team Providers Care Coding Specialist Home Health Name Role Phone Unavailable Primary Care Provider Unavailabl e Encounter Details Date Type Department Care Team (Latest Contact Info) Description 03/02/2000 8:44 EDT - 03/02/2000 11:59 EDT Hospital Encounter [facility] - Maple conversion [address] [place] [address] Kalia Mcwilliams MD Discharge Disposition: Auto Discharge Social History Tobacco [...] Associated Diagnosis Comments KNEE 3 VIEWS Routine 03/02/2000 16:23 EDT KNEE 1 OR 2 VIEWS Routine 03/02/2000 16: 23 EDT documented in this encounter Results * KNEE 1 OR 2 VIEWS (03/02/2000 16:23 EDT) Anatomical Region Laterality Modality Other 03/02/2000 16:2 3 EDT Narrative 06/30/2009 17:35 EST ACL RECON 9- ACL INTACT, TORE MED MEN IN 95 MULTIPLE LOCKING EOISOD ES, DOI 1994R/O DJD BILATERAL KNEES 03/02/00 RIGHT: AP and notch views. No bone, joint, or soft tissue abnormality is seen. LEFT: AP, notch, and lateral views. Interference screws are present from prior ACL reconstruction. Screw position appears appropriate. Minimal degenerative changes are present in the tibiofemoral joint. No hardware failure is seen. /vjc Procedure Note Reyes Thomason MD - 06/30/2009 ACL RECON 992- ACL INTACT, TORE MED MEN IN 95 MULTIPLE LOCKING EOISOD ES, DOI 1995R/O DJD BILATERAL KNEES 03/02/00 RIGHT: AP and notch views. No bone, joint, or soft tissue abnormality is seen. LEFT: AP, notch, and lateral views. Interference screws are present from prior ACL reconstruction. Screw position appears appropriate. Minimal degenerative changes are present in the tibiofemoral joint. No hardware failure is seen. /blake Kalia Mcwilliams MD [facility] DIAGNOSTIC IMAGING ORDER RADHA Final Result * KNEE 3 VIEWS (03/02/2000 16:23 EDT) Anatomical Region Laterality Modality Other 03/02/2000 16:2 3 EDT Narrative 06/30/2009 17:35 EST ACL RECON 9-92- ACL INTACT, TORE MED MEN IN 95 MULTIPLE LOCKING EOISOD ES, DOI 1995R/O DJD Procedure Note Reyes Thomason MD - 06/30/2009 ACL RECON 9-92- ACL INTACT, TORE MED MEN IN 95 MULTIPLE LOCKING EOISOD ES, DOI 1995R/O DJD Kalia Mcwilliams MD [facility] DI[facility]STIC [facility]AG[facility] ORDER RADHA Final Result documented in this encounter Visit Diagnoses Not on filedocumented in this encounter
--- OUTSIDE RECORDS SUMMARY | 2024-08-02 00:27 | XMS_ITS | Encounter Summary ---
Author Organization [facility] Address [address] [place] [address] Care Team Providers Care Integrated Circuit Layout Designer Name Role Phone Marivel Ricks MD Primary Care Provider [phone] Encounter Details Date Type Department Care Team (Latest Contact Info) Description 10/14/2009 10:32 EST - 10/14/2009 12:07 EST Hospital Encounter [facility] - [address] [address] Unknown, Provider, Amador Lynch HMD [address] [place] [address] Discharge Disposition: Home or Self [...] Code Departure Means Destination Home or Self Prison documented in this encounter Progress Notes * Inpatient, Physician - 12/24/2009 1549 EDT documented in this encounter Consult Notes * Amador Arango - 10/14/2009 0000 EST DIVISION OF RHEUMATOLOGY CONSULTATION - 10/14/2009 I saw the patient at the request of Dr Ricks. REASON FOR CONSULTATION: Fatigue, joint pain. HISTORY OF PRESENT ILLNESS: This is a 33-year-old female who is seen in consultation at the requestof Dr Ricks for a history of recent fatigue and joint pain. The patient states that she was in her usual state of health until earlier in the month when she developed severe discomfort in her right thumb and wrist with some slight swelling. Over the course of that day she had pain in her left wrist as well as pain in her ankles and knees. She says that initially she felt that this might have been related to a cold that she had just had, but that over the course of the day she had profound fatigue and malaise and felt quite ill. Over the past few weeks she has noted extreme tiredness to a point where she has difficulty picking up her [id number] daughter. A couple of times she has actually lay down on the floor next to the dining room table because she just feels she has to rest. She has had improvement in specific joint pains overall but last night she noted swelling and warmth in her left knee. That improved by the morning. She has a history of a fluttery sensation in her chest and has been worked up by a brimming machine operator in the past. She does not have a clear diagnosis, but she ultimately saw a psychologist with the concern that it may have been noncardiac related. She has continued to have the symptoms, and lately has had as many as 5 episodes in a day. These last for just a few seconds. She has also had some other nonspecific symptoms over the past few months including a foggy feeling, and decreased memory. She has had some color changes in the tips of her fingers, particularly the third finger of her left hand. She describes popping blood vessels on the palmar aspectof her fingers where she has blue discoloration that then expands and then slowly resolved. She hadsome painful glands a year ago when she felt similar symptoms in her neck, but that has not been part of her symptomatology this time. She denies any rashes but says that she has noted, over the pastyear, that she has some reddish discoloration in her face. This has seemed to go away over a periodof time, but it does come back as part of her symptoms. She has taken ibuprofen, which has helped some of the joint pain but has not made much difference in her fatigue. Overall, she feels that she is improving slightly but is certainly not back to her baseline. She is normally very fit and active but has not felt like walking the 4 mile she does daily or doing a 40-minute exercise tape that she normally does. She has read extensively about her symptoms online and does have concerns that she might have underlying connective tissue disease or other rheumatologic problems. She is adamant that she is not crazy, that she really does have some healing wrong with her, and is hoping that a diagnosis can be made. She denies any stress in her life right now. She has had no depressive symptoms or any anxiety. 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 REVIEW OF SYSTEMS: [id number] review of systems was obtained and documented in the medical recordfrom today's visit. It was negative with the following exceptions: She does admit to recent cold symptoms and now is complaining of somewhat of a sore throat. Her children have been sick numerous times over the winter as well. She has had some sensation of burning in her eyes that she has had sincea Lasik surgery. She complains of dry eyes and dry mouth. She has had sore gums and had some pinkish discoloration to the water after she brushed her teeth, implying bleeding. She had her , a dentist, look at the gums and he was not worried. She has had chest discomfort, palpitations or fluttering more frequent lately. She denies any shortness of breath with activity on a regular basis, but lately feels that she is having some trouble with walking up stairs and thinks it may just be thatshe is so fatigued. She has constipation prior to her menstrual cycle and diarrhea following that. Her skin has showed some changes on the face. She also has cystic acne following her menstrual cycle. No other rashes. She has some discoloration in the skin at the tips of her fingertips when it is cold. She had hair loss a year ago when she had similar symptoms, but none currently. She has also had some areas of her skin that feel like pins and needles of the left leg, which she has always thought was related to ACL surgery. This happened at the palmar aspect of her right wrist as well, withinthe past few days. She denies current depression but may have had depression in the past. MEDICATIONS: She is currently taking a multivitamin and vitamin D 1000 units daily. She also takes ibuprofen p.r.n., which has been helpful. PAST MEDICAL HISTORY: ACL tear In 1992. She underwent repair for that. She has had Lasix surgery. She has had three pregnancies without any complications, no history of miscarriages. She has seen a previous patient relations coordinator and was told she may have a benign hypermobility syndrome, otherwise no chronic medical conditions. She did have self-diagnosed pityriasis rosea that improved on its own. That was a year or so ago. FAMILY HISTORY: Hyperlipidemia, hypertension and a paternal aunt who had RA or possibly lupus. Osteoarthritis is in the family as well. SOCIAL HISTORY: She is a cxkh-sb-lxuq mom now with three children. 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 She does not smoke. She drinks alcohol very rarely. She enjoys exercising and staying fit. OBJECTIVE: Blood pressure 122/72, heart rate 62, respirations 18, weight 135 pounds, height 69 and 3/4 inches. Complaining of 2 to 3/10 pain in her knees. In general, she is a pleasant, well-appearing female who looks her stated age. She is in no acute distress. HEENT: Sclerae anicteric, conjunctivae not injected, oropharynx is clear. There is some questionable erythema posteriorly in the oropharynx. However, but no streaking or cobblestoning I do not appreciate any sores or oral ulcers. Neck no supraclavicular or cervical or posterior auricular lymphadenopathy. Her scalp shows no rashes or thinning of her hair. Lungs are clear to auscultation bilaterally. Cardiovascular regular rate and rhythm, no murmurs, rubs or gallops. Abdomen is soft, nontender to deep palpation. There is no organomegaly. Skin shows changes on her face, suggestive or rosacea. There is erythema on the cheeks and nose, does not spare the nasolabial fold. There is some vasomotor instability there as well, as she had a flushing multiple times during our interview. I do not appreciate any other skin changes, but I did do a nailfold capillary evaluation and saw no evidence of dilatation or dropout. There are a fewvery small papules on her abdomen that she feels are new and sometimes itch. There is no erythema over these. She does have some thickening over the PIP joints of the second and third fingers bilaterally with some dryness to these areas, suggestive of Gottron's but certainly not entirely consistentwith that. Musculoskeletal exam. She has full and painless range of motion of the large joints of her upper and lower extremities. I do not appreciate any swelling in any of the small joints of her hands; in particular the right CMC joint and the right thumb have no abnormalities. She does have hypermobility at the thumbs, able to touch her thumbs to the palmar aspect of her wrist. Her phalanges are able tohyperextend by about 5 to 10 degrees. I did not appreciate any hyperextension at the elbows. Her knees show no warmth or effusions. Ankles and MTPs are unremarkable. LABS: She did have an MAYR in the past that was 1:160. It was recently checked and was 1:40. Her CBCshowed a white count of 6, hemoglobin 13.6, hematocrit 40, platelets 219, and Lyme testing was negative. Sed rate was 7, within normal limits. IMAGING: No imaging available for review. 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 ASSESSMENT: This is a 33-year-old female who presents with increasing symptoms over the past few weeks including arthralgias, myalgias, and profound fatigue and this appears to be in the setting of recent illness and I question whether diagnosis may be a postviral syndrome; however, she has had symptoms like this before, a year ago, and she feels that this represents underlying condition that hasrecurred. I still suggest a postviral syndrome, particularly given the fact that she seems to be improving. Connective tissue disease to be on her differential though, other than a weakly positive MARY of 40, I see very little on her exam currently. I do not believe she has a malar rash, I think this is more rosacea. She would not meet criteria for lupus, currently. I am doubtful that she has an underlying inflammatory myopathy; there is no real obvious weakness on her exam, but that would be onher differential as well. I think it is reasonable to obtain further workup and follow her to see if there are any changes in her symptomatology. PLAN: 1. In terms of further workup today, will obtain labs including parvo virus serology, EBV, CBC withdiff, CMP, CK, with concern for myopathy, will obtain cells some serologies, given the fact that she has had elevated ANAs in the past; so Castro, double-stranded DNA, CYBER SECURITY SPECIALIST, SSA, SSB, SDL 70, and will be in touch with her with the results when they are available. Also check her vitamin D level and a urinalysis to assess for any proteinuria. 2. In terms of therapy, I think it would be reasonable for her to take ibuprofen on a regular basisfor a short time to see if that has any bearing on her symptoms. My hope is that she will continue to slowly improve. I asked her to try and take it easy and rest as much as she is able. If her symptoms are worsening she will give me a call. She will not have scheduled followup appointment but, certainly, if anything about her labs look abnormal will call and make one, if it is appropriate, or order further blood work. If her symptoms continue to not improve, I might question ordering a chest x-ray as well as EMMA level and calcium was a question of sarcoidosis. Labs were negative with the exception of a mildly elevated CK. We will plan on repeating that in a month to see if it is normalizing or increasing. Aldolase was wnl. Inflammatory myopathy would seem unlikely at this stage, but remains on the differential. I discussed results with the patient Electronically Signed by Amador Arango MD 10/27/2009 15:21 Amador Arango MD - Amador Arango MD - SARAH Job ID: SM Doc ID: [id number] Ext Doc ID: [id number] cc: Marivel Ricks MD documented in this encounter Plan of Treatment Not on file documented as of this encounter Visit Diagnoses Not on filedocumented in this encounter Care Teams Integrated Circuit Layout Designer Relationship Specialty Start Date End Date Marivel Ricks MD [address] [address] PCP - General 09/30/09 documented as of this encounter
--- OUTSIDE RECORDS SUMMARY | 2024-08-02 00:27 | XMS_ITS | Encounter Summary ---
Author Organization [facility] Address [address] [place] [address] Care Team Providers Care Optimization Manager Name Role Phone Unavailable Primary Care Provider Unavailabl e Encounter Details Date Type Department Care Team (Late st Contact Info) Description 09/04/2001 18:17 EST Hospital Encounter [facility] - Other [address] [place] [address] Roopa Hand MD [address] [place] [address] Unknown, Provider, Social History Tobacco Use Types [...] Priority Date/Time Associated Diagnosis Comments CYTOPATHOLOGY Routine 09/04/2001 0:00 EST documented in this encounter Results * CYTOPATHOLOGY (09/04/2001 0:00 EST) Pathology Report: CYTOPATHOLOGY REPORT Reports generated via electronic interface contain original data; however they are lacking the format of the original report. Caution should be taken when reading/interpreti ng unformatted reports. Name: ? PRIYA LYLE ? Accession #: ? [id number] : ? 1975 (Age: 25) ??F ?Collect Date: ? 09/04/2001 Location: ? [facility] ? Receive Date: ? 09/06/2001 Provider: ?ROOPA HAND MD Copy to: ? Specimen/Source: ?ThinPrep Pap Test, Cervix/Endocervix Last Menstrual Period: ? Menstrual/Pregnanc y Status: ? SPECIMEN ADEQUACY ? Satisfactory for Evaluation - transformation zone component present GENERAL CATEGORIZATION ? Negative for Intraepithelial Lesion or Malignancy ? Document reviewed and electronically signed by: ? FAITH Max(ASCP) ? Report Date: ??09/06/2001 13:31 End of Report PHIL MUNOZ 09/04/2001 09/06/2001 us Roopa Hadn MD PATHOLOGY ORDERABLES Fin al Result PHIL MUNOZ [address] [place] [address] documented in this encounter Visit Diagnoses Not on filedocumented in this encounter
--- OUTSIDE RECORDS SUMMARY | 2024-08-02 00:27 | XMS_ITS | Encounter Summary ---
Author Organization [facility] Address [address] [place] [address] Care Team Providers Care Hide Sorter Name Role Phone Marivel Ricks MD Primary Care Provider [phone] Encounter Details Date Type Department Care Team (Late st Contact Info) Description 10/14/2009 Results Only [facility] Rheumatology & Immunology - [facility] [address], [place] [id number] Amador Arango MD [address] [place] [id number] Social History Tobacco Use Types Packs/Day Years [...] Diagnosis Comments SS-B (LA) ANTIBODY, IGG Routine 10/14/2009 12:23 EST ZZHN SSA ANTIBODIES BY ANDREA Routine 10/14/2009 12:23 EST SM (THOMAS) ANTIBODY, IGG Routine 10/14/2009 12:23 EST VITAMIN D (25,OH) Routine 10/14/2009 12: 23 EST WALI-MARTINEZ PANEL Routine 10/14/2009 12 :23 EST PARVOVIRUS B19 AB, IGG, IGM, S Routine 10/14/2009 12:23 EST BIG DATA ADMIN ANTIBODY, IGG Routine 10/14/2009 12: 23 EST MARY TITER Routine 10/14/2009 12:23 EST DOUBLE STRANDED DNA ANTIBODY, IGG Routine 10/14/2009 12:23 EST ALDOLASE Routine 10/14/2009 12:23 EST SED RATE Routine 10/14/2009 12:23 EST COMPLETE BLOOD COUNT AND DIFFERENTIAL Routine 10/14/2009 12:23 EST ANTISTREP O TITER, S Routine 10/14/2009 12:23 EST C3 COMPLEMENT Routine 10/14/2009 12:23 EST C4 COMPLEMENT Routine 10/14/2009 12:23 EST C REACTIVE PROTEIN Routine 10/14/2009 12 :23 EST ANTI NUCLEAR AB (MARY), IFA Routine 10/14/2009 12:23 EST TSH Routine 10/14/2009 12:23 EST CK Routine 10/14/2009 12:23 EST COMPREHENSIVE METABOLIC PANEL (CMP) Routine 10/14/2009 12:23 EST documented in this encounter Results * MARY TITER (10/14/2009 12:23 EST) MARY Titer 40 0 - 40 [facility] Comment:Speckled pattern 10/14/2009 12:2 3 EST 10/14/2009 12:26 EST us Amadorlaura Arango MD IMMUNOLOGY AND SEROLOGY ORDER RADHA Final Result Performing Organization Address [facility] Co de Phone Number [facility] [address] [place] [address] * PARVOVIRUS ANTIBODY (10/14/2009 12:23 EST) Parvovirus B19 Ab, IgG, S 5.12Reference range: <0.90 Unit: index Positive (>1.10) ? [facility] Parvovirus B19 Ab, IgM, S 0.16Reference range: <0.90 Unit: index [facility] Parvovirus Interpretation Results suggest past infection. ? Performed by: [employer] [facility], [address], ? [place] [address], Electrical Appliance Preparer: Yee Eli, Ph.D. ? [facility] Blood specimen (specimen) 10/14/2009 12:23 EST 10/14/2009 12:26 EST us Amadorlaura Arango MD IMMUNOLOGY AND SEROLOGY ORDER RADHA Final Result Performing Organization Address [facility] de Phone Number [facility] [address] [place] [address] * ALDOLASE (10/14/2009 12:23 EST) Pathologist [facility] Aldolase, S 5.3Reference range: <7.7 Unit: U/L Slightly hemolyzed ? Performed by: [facility], [address], ? [place] [address], Electrical Appliance Preparer: Yee Eli, Ph.D. ? [facility] Blood specimen (specimen) 10/14/2009 12:23 EST 10/14/2009 12:26 EST Amadorlaura Arango MD CHEMISTRY & BLOOD GAS ORDERAB LES Final Result Performing Organization Address [facility] de Phone Number [facility] [address] [place] [address] * VITAMIN D (25,OH) (10/14/2009 12:23 EST) Pathologist [facility] 25OH Vitamin D Tot 38.9 ng/ml [facility] Comment: Reference Range: <10 ng/ml: Deficient 10-30 ng/ml: Insufficient 30-100 ng/ml: Sufficient >100 ng/ml: Toxic Blood specimen (specimen) 10/14/2009 12:23 EST 10/14/2009 12:26 EST us Amador Arango MD CHEMISTRY & BLOOD GAS ORDERAB LES Final Result Performing Organization Address [facility] de Phone Number [facility] [address] [place] [address] * SS-B/LA ANTIBODY, IGG, SERUM (10/14/2009 12:23 EST) SS B/La Ab, IgG, S <0.2Unit: U -- REFERENCE VALUE -- ? <1.0 (Negative) ? > or =1.0 (Positive) ? Performed by: [employer] [facility], [address], ? [place] [address], Electrical Appliance Preparer: Yee Eli, Ph.D. ? [facility] Blood specimen (specimen) 10/14/2009 12:23 EST 10/14/2009 12:26 EST us Amador Arango MD IMMUNOLOGY AND SEROLOGY ORDER RADHA Final Result [facility] [address] [place] [address] * SS-A/RO ANTIBODY, IGG, SERUM (10/14/2009 12:23 EST) SS A/Ro Ab, IgG, S <0.2Unit: U -- REFERENCE VALUE -- ? <1.0 (Negative) ? > or =1.0 (Positive) ? Performed by: [employer] [facility], [address], ? [place] [address], Electrical Appliance Preparer: Yee Eli, Ph.D. ? [facility] Blood specimen (specimen) 10/14/2009 12:23 EST 10/14/2009 12:26 EST Amador Arango MD IMMUNOLOGY AND SEROLOGY ORDER RADHA Final Result Performing Organization Address [facility] de Phone Number [facility] [address] [place] [address] * C4 COMPLEMENT (10/14/2009 12:23 EST) C4 Complement 25 16 - 38 mg/dl [facility] Blood specimen (specimen) 10/14/2009 12:23 EST 10/14/2009 12:26 EST Amador Arango MD CHEMISTRY & BLOOD GAS ORDERAB LES Final Result Performing Organization Address [facility] de Phone Number [facility] [address] [place] [address] * C3 COMPLEMENT (10/14/2009 12:23 EST) C3 Complement 104 79 - 152 mg/dl [facility] Blood specimen (specimen) 10/14/2009 12:23 EST 10/14/2009 12:26 EST Amador Arango MD CHEMISTRY & BLOOD GAS ORDERAB LES Final Result Performing Organization Address [facility] de Phone Number [facility] [address] [place] [address] * BIG DATA ADMIN ANTIBODY, IGG, SERUM (10/14/2009 12:23 EST) BIG DATA ADMIN Ab, IgG, S 0.3Unit: U -- REFERENCE VALUE -- ? <1.0 (Negative) ? > or =1.0 (Positive) ? Performed by: [employer] [facility], [address], ? [place] [address], Electrical Appliance Preparer: Yee Eli, Ph.D. ? [facility] Blood specimen (specimen) 10/14/2009 12:23 EST 10/14/2009 12:26 EST us Amador Arango MD IMMUNOLOGY AND SEROLOGY ORDER RADHA Final Result [facility] [address] [place] [address] * SM ANTIBODIES, IGG, SERUM (10/14/2009 12:23 EST) Sm Ab, IgG, S <0.2Unit: U -- REFERENCE VALUE -- ? <1.0 (Negative) ? > or =1.0 (Positive) ? Performed by: [employer] [facility], [address], ? [place] [address], Electrical Appliance Preparer: Yee Eli, Ph.D. ? [facility] Blood specimen (specimen) 10/14/2009 12:23 EST 10/14/2009 12:26 EST Amador Arango MD IMMUNOLOGY AND SEROLOGY ORDER RADHA Final Result Performing Organization Address City/State/[facility] Co de Phone Number [facility] [address] [place] [address] * ANTI DNA (DOUBLE STRAND) (10/14/2009 12:23 EST) Anti DNA (DS) <25 <25 IU [facility] Comment: Results Interpretation IU's ?Interpretation <25 ?Negative 25 TO <30 ?Weakly Positive 30 TO <60 ?Low Positive 60 TO <200 ? Positive >200 ? Strong Positive Blood specimen (specimen) 10/14/2009 12:23 EST 10/14/2009 12:26 EST Amador Arango MD IMMUNOLOGY AND SEROLOGY ORDER RADHA Final Result [facility] [address] [place] [address] * WALI MARTINEZ PANEL (10/14/2009 12:23 EST) EBV VCA IgM Ab, S Negative Reference range: Negative [facility] EBV VCA IgG Ab, S Positive Reference range: Negative [facility] EBNA Ab, S Positive Reference range: Negative [facility] Interpretation Results suggest past infection ? In most populations, at least 90% of the adult population ? will have been infected with EBV sometime in the past and ? therefore, will be positive for anti-VCA/IgG and anti-EBNA. ? Antibodies to EBNA develop 6-8 weeks after primary infection ? and remain present for life. ??Presence of VCA/IgM antibodies ? indicates recent primary infection with EBV. ? Performed by: [facility] [employer] [facility], [address], ? [place] [address], Electrical Appliance Preparer: Yee Eli, Ph.D. ? [facility] Blood specimen (specimen) 10/14/2009 12:23 EST 10/14/2009 12:26 EST Amador Arango MD IMMUNOLOGY AND SEROLOGY ORDER RADHA Final Result Performing Organization Address [facility] Phone Number [facility] [address] [place] [address] * ANTI STREPTOLYSIN O (10/14/2009 12:23 EST) Pathologist [facility] Anti Strep O Screen <100 <200 ADDIE U [facility] Blood specimen (specimen) 10/14/2009 12:23 EST 10/14/2009 12:26 EST Amadorlaura Arango MD IMMUNOLOGY AND SEROLOGY ORDER RADHA Final Result Performing Organization Address [facility] Phone Number [facility] [address] [place] [address] * ANTI NUCLEAR ANTIBODY (10/14/2009 12:23 EST) Pathologist [facility] Anti Nuclear Ab Positive at 40 dils, titer to follow. 0 - 40 Dils [facility] Blood specimen (specimen) 10/14/2009 12:23 EST 10/14/2009 12:26 EST Amador Arango MD IMMUNOLOGY AND SEROLOGY ORDER RADHA Final Result Performing Organization Address [facility] Phone Number [facility] [address] [place] [address] * SED. RATE:JANET (10/14/2009 12:23 EST) Pathologist [facility] Sed. Rate Juren 15 0 - 20 mm/hr [facility] Blood specimen (specimen) 10/14/2009 12:23 EST 10/14/2009 12:26 EST Amador Arango MD HEMATOLOGY & PF4 ORDERABLES F inal Result [facility] [address] [place] [address] * HEMAGRAM AND DIFFERENTIAL (10/14/2009 12:23 EST) WBC 6.70 4.0 - 12.4 K/cmm [facility] RBC 4.43 3.86 - 5.04 M/cmm [facility] Hemoglobin 13.8 11.6 - 15.2 gm/dl [facility] HCT 39.8 34.9 - 44.4 % [facility] MCV 90 81 - 98 fl [facility] MCH 31.2 26.7 - 33.3 pg [facility] MCHC 34.8 32.1 - 35.9 gm/dl [facility] PLT 178 141 - 320 K/cmm [facility] RDW-CV 13.1 11.7 - 14.6 % [facility] % Neutrophils 68.5 45.5 - 79.7 % [facility] % Lymphocytes 23.3 15.0 - 46.8 % [facility] % Monocytes 6.3 1.8 - 12.0 % [facility] % Eosinophils 1.5 0.6 - 6.9 % [facility] % Basophils 0.4 0.2 - 1.4 % [facility] ABS Neutrophils 4.58 2.20 - 8.85 K/cmm [facility] ABS Lymphs 1.56 1.09 - 3.30 K/cmm [facility] ABS Monocytes 0.42 0.1 - 0.8 K/cmm [facility] ABS Eosinophils 0.10 0.03 - 0.61 K/cmm [facility] ABS Basophils 0.03 0.01 - 0.11 K/cmm [facility] Type of Diff: Automated [facility] Blood specimen (specimen) 10/14/2009 12:23 EST 10/14/2009 12:26 EST us Amadorlaura Arango MD PACKAGES & DNA PROBE ORDERABL ES Final Result [facility] [address] [place] [address] * TSH (10/14/2009 12:23 EST) Pathologist [facility] TSH 1.24 0.35 - 5.00 uIU/ml [facility] Blood specimen (specimen) 10/14/2009 12:23 EST 10/14/2009 12:26 EST us Amadorlaura Arango MD CHEMISTRY & BLOOD GAS ORDERAB LES Final Result Performing Organization Address [facility] de Phone Number [facility] [address] [place] [address] * (ABNORMAL) CK (10/14/2009 12:23 EST) [facility] CK 239(H) 30 - 135 U/L [facility] Blood specimen (specimen) 10/14/2009 12:23 EST 10/14/2009 12:26 EST us Amadorlaura Arango MD CHEMISTRY & BLOOD GAS ORDERAB LES Final Result Performing Organization Address [facility] de Phone Number [facility] [address] [place] [address] * C-REACTIVE PROTEIN (10/14/2009 12:23 EST) [facility] C-Reactive Protein <0.7 <1.0 mg/dl [facility] Blood specimen (specimen) 10/14/2009 12:23 EST 10/14/2009 12:26 EST us Amador Arango MD CHEMISTRY & BLOOD GAS ORDERAB LES Final Result Performing Organization Address [facility] Co de Phone Number [facility] [address] [place] [address] * COMPREHENSIVE METABOLIC PANEL (10/14/2009 12:23 EST) [facility] Potassium 4.2 3.5 - 5.0 mEq/L [facility] Sodium 137 136 - 145 mEq/L [facility] Chloride 104 96 - 110 mEq/L [facility] CO2 27 24 - 32 mEq/L [facility] Total Alkaline Phosphatase 49 38 - 126 U/L [facility] Bilirubin, Total <0.5 0.2 - 1.3 mg/dl [facility] AST 32 15 - 46 U/L [facility] ALT 26 9 - 52 U/L [facility] Albumin 4.7 3.4 - 4.9 g/dl [facility] Total Protein 7.3 6.5 - 8.3 g/dl [facility] Creatinine 0.90 0.7 - 1.5 mg/dl [facility] GFR, Calculated >60 ml/min/1.7 3m2 [facility] BUN 15 10 - 26 mg/dl [facility] Calcium 9.6 8.5 - 10.5 mg/dl [facility] Calculated Calcium 9.3 8.5 - 10.5 mg/dl [facility] Glucose, Serum 87 70 - 100 mg/dl [facility] Fasting? No [facility] Blood specimen (specimen) 10/14/2009 12:23 EST 10/14/2009 12:26 EST us Amadorlaura Arango MD CHEMISTRY & BLOOD GAS ORDERAB LES Final Result Performing Organization Address City/State/[facility] Co de Phone Number [facility] [address] [place] [address] documented in this encounter Visit Diagnoses Not on filedocumented in this encounter Care Teams Hide Sorter Relationship Specialty Start Date End Date Marivel Ricks MD [address] [address] PCP - General 09/30/09 documented as of this encounter
--- OUTSIDE RECORDS SUMMARY | 2024-08-02 00:27 | XMS_ITS | Encounter Summary ---
Author Organization [facility] Address [address] [place] [address] Care Team Providers Care Executive Personal Assistant Name Role Phone Marivel Ricks MD Primary Care Provider [phone] Encounter Details Date Type Department Care Team (Latest Contact Info) Description 07/02/2016 14:17 EST - 07/02/2016 23:59 EST Hospital Encounter [facility] [address] [place] [address] Unknown, Provider, MD Discharge Disposition: Home or [...] Code Departure Means Destination Home or Self [facility] documented in this encounter Plan of Treatment Not on file documented as of this encounter Visit Diagnoses Not on filedocumented in this encounter Care Teams Executive Personal Assistant Relationship Specialty Start Date End Date Marivel Ricks MD [address] [address] PCP - General 09/30/09 documented as of this encounter
--- OUTSIDE RECORDS SUMMARY | 2024-08-02 00:27 | XMS_ITS | Encounter Summary ---
Author Organization [facility] Address [address] [place] [address] Care Team Providers Care Environmental Maintenance Worker Name Role Phone Marivel Ricks MD Primary Care Provider [phone] Encounter Details Date Type Department Care Team (Late st Contact Info) Description 01/28/2018 Historical Results Only [facility] [place] Results [address] [place] [address] Divina Clement PA-C [address] [place] [address] Social History Tobacco Use Types Packs/Day Years [...] Name Priority Date/Time Associated Diagnosis Comments XR ANKLE RIGHT 3 OR MORE VIEWS 01/28/2018 17:06 EDT documented in this encounter Results * XR ANKLE RIGHT 3 OR MORE VIEWS (01/28/2018 17:06 EDT) Anatomical Region Laterality Modality Lower Extremities, Ankle Right Other 01/28/2018 17:0 6 EDT Narrative 01/28/2018 17:06 EDT ? EXAM: RADIOLOGY EXPRESS CARE/EXP CARE ANK EX. D/ (1619) ? CLINICAL INFORMATION: ? RIGHT ANKLE PAIN AND SWELLING AFTER INJURY 2 DAYS AGO ? EXAM: ? XR Right Ankle Complete, 3 or More Views ? EXAM DATE/TIME: ? 01/28/2018 4:11 PM ? CLINICAL HISTORY: ? The patient is 42 years old and is female; Injury or trauma; Fall; ? Initial encounter; Sprain or strain; Ankle; Right; Additional info: ? Right ankle pain and swelling after injury 2 days ago Facility exam ? id and description: Exankr exp care ankl rt 3v+ ? TECHNIQUE: ? Frontal, lateral and oblique views of the right ankle. ? COMPARISON: ? No relevant prior studies available. ? FINDINGS: ? Bones/joints: ??There is a small calcific density distal to the ? lateral malleolus which may represent a fracture fragment. ??No ? fracture is identified elsewhere. ??An os trigonum is noted. ??The ? joint spaces are normally aligned, with the ankle mortise preserved ? on these nonstressed views. ??A very small plantar calcaneal ? osteophyte is present. ??There is minor osteophyte formation of the ? tip of the medial malleolus. ? Soft tissues: ??The soft tissues are swollen laterally. ? IMPRESSION: ? 1. ??Lateral soft tissue swelling with a small calcific density ? distal to the lateral malleolus which may represent a fracture ? fragment. ? 2. ??Degenerative changes as described. ? REPORT SIGNED IN OTHER VENDOR SYSTEM 01/28/2018 ?Reported By: Zain Yoder MD ? CC: ? Transcribed Date/Time: 01/28/2018 (1706) ? Life Science Technical Officer: ? Printed Date/Time: 02/08/2019 (4837) ? PAGE 1 ? Signed Report ? Procedure Note Zain Yoder MD - 10/04/2019 EXAM: RADIOLOGY EXPRESS CARE/EXP CARE ANK EX. D/ (1619) CLINICAL INFORMATION: RIGHT ANKLE PAIN AND SWELLING AFTER INJURY 2 DAYS AGO EXAM: XR Right Ankle Complete, 3 or More Views EXAM DATE/TIME: 01/28/2018 4:11 PM CLINICAL HISTORY: The patient is 42 years old and is female; Injury or trauma; Fall; Initial encounter; Sprain or strain; Ankle; Right; Additional info: Right ankle pain and swelling after injury 2 days ago Facility exam id and description: Exankr exp care ankl rt 3v+ TECHNIQUE: Frontal, lateral and oblique views of the right ankle. COMPARISON: No relevant prior studies available. FINDINGS: Bones/joints: There is a small calcific density distal to the lateral malleolus which may represent a fracture fragment. No fracture is identified elsewhere. An os trigonum is noted. The joint spaces are normally aligned, with the ankle mortise preserved on these nonstressed views. A very small plantar calcaneal osteophyte is present. There is minor osteophyte formation of the tip of the medial malleolus. Soft tissues: The soft tissues are swollen laterally. IMPRESSION: 1. Lateral soft tissue swelling with a small calcific density distal to the lateral malleolus which may represent a fracture fragment. 2. Degenerative changes as described. REPORT SIGNED IN OTHER VENDOR SYSTEM 01/28/2018 Reported By: Zain Yoder MD CC: Transcribed Date/Time: 01/28/2018 (5865) Life Science Technical Officer: Printed Date/Time: 02/08/2019 (6938) PAGE 1 Signed Report us Divina Clement PA-C IMG DIAGNOSTIC IMAGI NG ORDERABLES Final Result documented in this encounter Visit Diagnoses Not on filedocumented in this encounter Care Teams Environmental Maintenance Worker Relationship Specialty Start Date End Date Marivel Ricks MD [address] [address] PCP - General 09/30/09 documented as of this encounter
[2024-08-02] MEDS: Gadoterate meglumine 20 ML SYRINGE IVP (10:01)
[2024-08-02] MEDS: Normal Saline Flush 10 ML SYR IVP (10:01)
== END 2024-08-02 00:43 ==
PROVIDERS: PCP Neuromusculoskeletal Medicine & OMM; Visit Provider Neuromusculoskeletal Medicine & OMM
DX: G31.9 Degenerative disease of nervous system, unspecified (principal)
CPT/HCPCS: 70553